=== PATIENT | female | born 1945 | race Caucasian/White ===

== ENCOUNTER 2018-02-16 12:44 | Emergency (ER) | payer MEDICARE, SELFPAY ==
[2018-02-16 12:50] VITALS: PULSE 84; RESP 20; O2SAT 97
--- NOTE | 2018-02-16 12:52 | DI.RAD.S_ITS ---
PROCEDURE: XR CHEST 1V INDICATIONS: chest pain TECHNIQUE: One view of the chest was acquired. COMPARISON: [facility], , CHEST 1 VIEW, 10/11/2017, 12:44. FINDINGS: Surgical changes and devices: None. Lungs and pleura: No pleural effusions or pneumothorax. Lungs are clear. Mediastinum: Mediastinal contours appear normal. Heart size is normal. Aortic calcifications. Bones and chest wall: No suspicious bony lesions. Overlying soft tissues appear unremarkable. IMPRESSION: No acute cardiopulmonary abnormality. Dictated by: Cipriano Pelayo M.D. on 02/16/2018 at 13:30 Approved by: Cipriano Pelayo M.D. on 02/16/2018 at 13:31
[2018-02-16 13:00] LABS: Add Manual Diff / Slide Review NO; Basophils Percent Auto 0.7 % (0-2); Eosinophils Percent Auto 2.5 % (2-4); Hematocrit 43.8 % (36-46); Lymphocytes Percent Auto 43.2 % (25-40); Mean Corpuscular HGB Conc 34.2 % (30-36); Mean Corpuscular Hemoglobin 29.5 PG (26-34); Mean Corpuscular Volume 86.3 fL (80-100); Monocytes Percent Auto 6.4 % (3-14); Neutrophils Absolute Auto 3300 /uL (3000-5900); Neutrophils Percent Auto 47.2 % (50-75); Platelet Count 232 X10^3/uL (150-400); Red Blood Cell Count 5.08 X10^6/uL (4.0-5.2); Red Cell Distribution Width 13.7 % (11.6-14.8)
[2018-02-16 13:09] LABS: Alanine Aminotransferase 35 IU/L (9-52); Albumin 4.4 g/dL (3.5-5.0); Albumin Globulin Ratio 1.4 (1.0-2.8); Alkaline Phosphatase 46 U/L (38-126); Aspartate Aminotransferase 36 IU/L (14-36); BUN Creatinine Ratio 33.3 (6-22); Bilirubin Total 0.8 mg/dL (0.2-1.3); Blood Urea Nitrogen 20 mg/dL (7-17); Calcium 9.8 mg/dL (8.4-10.2); Carbon Dioxide 28 mmol/L (22-32); Chloride 100 mmol/L (98-107); Creatine Kinase 79 U/L (30-135); Estimated Glomerular Filt Rate > 60.0 mL/min (>60); Globulin 3.1 g/dL (1.7-4.1); Glucose 151 mg/dL (80-110); HEMOLYSIS 58 (0-50); Lipase 163 U/L (23-300); Potassium 4.4 mmol/L (3.4-5.1); Sodium 140 mmol/L (137-145); Total Protein 7.5 g/dL (6.3-8.2)
[2018-02-16 13:15] VITALS: BP 122/64; PULSE 79; RESP 16; O2SAT 94
[2018-02-16 13:21] LABS: Troponin I < 0.012 ng/mL (0.01-0.034)
--- NOTE | 2018-02-16 14:07 | ED.CHESTPAIN ---
HPI - Chest Pain General Chief Complaint: Chest Pain Stated Complaint: Chest Pain Time Seen by Provider: 02/16/18 13:26 Source: patient and EMS Mode of arrival: EMS Limitations: no limitations History of Present Illness HPI narrative: Patient states that she noticed onset of left shoulder pain this morning. The pain radiated down into her left arm. She denies actual chest pain itself, and denies shortness of breath. She states she had a little bit of nausea. Patient called EMS, and the medics state that by the time they got there the pain had resolved. Patient states she had a full cardiac workup earlier this year, in August or September, and that she had a negative stress test at that time. MD complaint: other (Left shoulder pain) Onset (ago): minute(s) Duration: now resolved Onset: during rest Pain location: other (Left shoulder) Severity: mild Severity scale (1-10): 3 Quality: sharp Pain radiation: LUE Relieving factors: nothing Exacerbating factors: nothing Context: other (Negative for recent illness, recent surgery, recent immobilization, recent travel, recent trauma, new medications, or history of DVT/PE.) Associated symptoms: nausea and other (No respiratory symptoms.) Treatments prior to arrival chest pain: none Related Data Home Medications Medication Instructions Recorded Confirmed aspirin 81 mg PO HS #30 tab 03/09/16 01/05/18 cetirizine 10 mg capsule 10 mg PO DAILY cap 01/05/18 01/05/18 diltiazem 30 mg tablet 30 mg PO TID 01/05/18 01/05/18 Previous Rx's Medication Instructions Recorded diazepam [Valium] 10 mg PO HS #5 tab 10/06/17 simvastatin 10 mg tablet 10 mg PO QPM #90 tab 11/18/17 blood sugar diagnostic strips #100 each 01/05/18 metoprolol succinate ER 50 mg See Label Instructions .ROUTE 01/27/18 tablet,extended release 24 hr .COMPLEX #120 tab Allergies Allergy/AdvReac Type Severity Reaction Status Date / Time simvastatin AdvReac Intermediate Severe Verified 01/05/18 14:31 muscle weekness and pain Review of Systems Review of Systems All systems reviewed & are unremarkable except as noted in HPI and below Constitutional Denies chills, Denies fever(s), Denies lethargy and Denies weakness Eyes Denies change in vision, Denies eye discharge, Denies irritation and Denies loss of vision ENT Ears, Nose, Mouth, and Throat: Denies change in voice, Denies neck pain and Denies sore throat Cardiovascular Denies chest pain, Denies irregular heart rhythm, Denies lightheadedness, Denies palpitations, Denies dyspnea, Denies dyspnea on exertion and Denies orthopnea Respiratory Denies cough, Denies dyspnea, Denies dyspnea on exertion and Denies wheezing Gastrointestinal Gastrointestinal: Denies abdominal pain, Denies change in bowel habits, Denies diarrhea, Denies nausea and Denies vomiting Genitourinary Denies hematuria, Denies flank pain, Denies urinary incontinence and Denies urinary urgency Musculoskeletal Denies neck pain and Reports radiating pain into limb Comments: Left upper extremity pain. Integumentary/Breasts Denies pruritus, Denies erythema, Denies rash and Denies wounds Neurologic Denies confusion, Denies loss of vision and Denies weakness Psychiatric Denies anxiety, Denies confusion, Denies depression, Denies homicidal ideation and Denies suicidal ideation Endocrine Denies palpitations Hematologic/Lymphatic Denies easy bruising Allergic/Immunologic Denies wheezing PFSH Family History Father No problems noted. Mother No problems noted. Social History Smoking Status: Former smoker Tobacco: How many years used: 30 alcohol intake: never Exam Initial Vital Signs Initial Vital Signs: Vital Signs Pulse Rate 84 02/16/18 12:50 Respiratory Rate 20 02/16/18 12:50 Pulse Oximetry 97 02/16/18 12:50 Const General: cooperative and well developed Nutritional Appearance: well nourished Orientation: alert, awake, oriented x3 and not confused [facility] Head: normocephalic and atraumatic Ears: external ears normal and TM's normal bilaterally Nose: external nose normal and No nasal discharge Face and sinus: sinuses nontender, face symmetric, no sinus tenderness and No dry mucous membranes Mouth: oral mucosae normal and moist mucous membranes Teeth and gingiva: dentition normal Throat: tonsils normal and uvula midline Eyes General: appearance normal, both eyes and all related structures Eyelids: eyelids normal Conjunctivae: conjunctivae normal Sclera: sclerae normal Pupils: PERRL EOM: EOM intact bilaterally Neck Neck: normal visual inspection, trachea midline, No lymphadenopathy, No midline deformity and No JVD Lymphatic: No lymphedema Chest Chest: normal inspection of the chest Resp Effort & Inspection: normal respiratory effort, able to speak in complete sentences, no respiratory distress and no use of accessory muscles Auscultation: clear to auscultation bilaterally, no rales, no rhonchi and no wheezes Cardio Rate: regular rate Rhythm: regular rhythm Heart Sounds: no click, no gallops, no murmurs and no rubs Pulses: normal peripheral pulses GI Inspection: non-distended Palpation: soft, no hepatosplenomegaly, No guarding, No pulsatile mass and No tender Auscultation: normal bowel sounds Back/Spine/Pelvis Back: No CVA tenderness Cervical Spine: cervical ROM normal and No pain with cervical ROM Thoracic/Lumbar Spine: thoracic and lumbar spine normal to inspection Skin General: no rashes or lesions noted, No jaundice and No petechiae Neuro General: alert, oriented x3, gait normal and no focal motor deficits Speech: speech normal Extrem General: full ROM, no clubbing, cyanosis or edema, no pedal edema and no calf tenderness Psych Appearance: well kempt Mental Status: mental status grossly normal Attitude: cooperative Thought Content: normal and suicidality Judgment: judgment good Course Hospital Course: Patient remained stable in the emergency department. Additional Information: Twelve lead EKG was performed as follows: Date and time February 16, 2018 at 12:47 p.m. Regular ventricular rhythm with a rate of 84 beats per minute [place] interval 166 milliseconds QRS duration 93 milliseconds QTC interval 402 milliseconds [place] normal No ST T wave abnormality Interpretation: Normal sinus rhythm, normal EKG PROCEDURE: XR CHEST 1V INDICATIONS: chest pain TECHNIQUE: One view of the chest was acquired. COMPARISON: [facility], CHEST 1 VIEW, 10/11/2017, 12:44. FINDINGS: Surgical changes and devices: None. Lungs and pleura: No pleural effusions or pneumothorax. Lungs are clear. Mediastinum: Mediastinal contours appear normal. Heart size is normal. Aortic calcifications. Bones and chest wall: No suspicious bony lesions. Overlying soft tissues appear unremarkable. IMPRESSION: No acute cardiopulmonary abnormality. Dictated by: Cipriano Pelayo M.D. on 02/16/2018 at 13:30 Approved by: Cipriano Pelayo M.D. on 02/16/2018 at 13:31 Orders Ordered: ED Orders 02/16/18 12:40 Complete Blood Count AUTO DIFF Stat Comprehensive Metabolic Panel Stat Lipase Stat Troponin & CK Cardiac Panel Stat 02/16/18 12:52 XR chest 1V Stat EKG-12 Lead Stat Vital Signs - 8 hr 02/16/18 12:50 02/16/18 13:15 Pulse Rate 84 79 Respiratory Rate 20 16 Blood Pressure [Right Arm] 122/64 H Pulse Oximetry 97 94 MDM - Chest Pain Differential Diagnosis Likely stable angina and chest pain Medical Records Data Attestation: I reviewed the patient's medical records. Lab Data Attestation: I reviewed the patient's lab results. Result diagrams: 02/16/18 12:40 02/16/18 12:40 Lab Results 02/16/18 02/16/18 Range/Units 12:40 12:40 WBC 7.0 (4.5-11.0) X10^3/uL RBC 5.08 (4.0-5.2) X10^6/uL Hgb 15.0 (12.0-16.0) g/dL Hct 43.8 (36-46) % MCV 86.3 (80-100) fL MCH 29.5 (26-34) PG MCHC 34.2 (30-36) % RDW 13.7 (11.6-14.8) % Plt Count 232 (150-400) X10^3/uL Neut % (Auto) 47.2 L (50-75) % Lymph % (Auto) 43.2 H (25-40) % [place] % (Auto) 6.4 (3-14) % Eos % (Auto) 2.5 (2-4) % Baso % (Auto) 0.7 (0-2) % Neut # (Auto) 3300 (7998-7804) /uL Sodium 140 (137-145) mmol/L Potassium 4.4 (3.4-5.1) mmol/L Chloride 100 (98-107) mmol/L Carbon Dioxide 28 (22-32) mmol/L BUN 20 H (7-17) mg/dL Creatinine 0.60 (0.52-1.04) mg/dL Estimated GFR > 60.0 (>60) mL/min BUN/Creatinine Ratio 33.3 H (6-22) Glucose 151 H (80-110) mg/dL Calcium 9.8 (8.4-10.2) mg/dL Total Bilirubin 0.8 (0.2-1.3) mg/dL AST 36 (14-36) IU/L ALT 35 (9-52) IU/L Alkaline Phosphatase 46 (38-126) U/L Total Creatine Kinase 79 (30-135) U/L Troponin I < 0.012 (0.01-0.034) ng/mL Total Protein 7.5 (6.3-8.2) g/dL Albumin 4.4 (3.5-5.0) g/dL Globulin 3.1 (1.7-4.1) g/dL Albumin/Globulin Ratio 1.4 (1.0-2.8) Lipase 163 (23-300) U/L MDM Narrative Medical decision making narrative: Patient was stable and asymptomatic upon arrival in the emergency department. Additionally, she had had a negative stress test in recent months. Her EKG was unremarkable for serious pathology. Laboratory studies were also unremarkable. I did feel this patient is stable for discharge home, as I have not identified any emergent condition. Discharge Plan Departure Patient Disposition: Home, Self-Care Clinical Impression: Acute shoulder pain Discharge Date/Time: 02/16/18 14:24 Interventions: ED Discharge Assessment Last Done: 02/16/18 14:24 Instructions: DI for Shoulder Pain Activity Restrictions/Additional Instructions: Your labs look good, and your EKG does not show any evidence of an emergent cause of your pain. Additionally, the negative stress test several months ago is reassuring in terms of possibility of a heart attack or impending heart attack. If you have worsening chest pain, shortness of breath, or if you have fainting episodes associated with further pain of this nature, please return to the emergency department. Otherwise you may follow up with your primary care physician for further concerns. Prescriptions: No Action diltiazem HCl 30 mg tablet 30 mg PO TID RF: 0 cetirizine [Zyrtec] 10 mg capsule 10 mg PO DAILY RF: 0 blood sugar diagnostic [FreeStyle Test] strip .ROUTE .MEDSUPPLY Qty: 100 RF: 0 aspirin 81 MG tablet,delayed release (DR/EC) 81 mg PO HS Qty: 30 RF: 0 diazepam [Valium] 10 MG tablet 10 mg PO HS Qty: 5 RF: 0 simvastatin 10 mg tablet 10 mg PO QPM Qty: 90 RF: 0 metoprolol succinate 50 mg tablet extended release 24 hr See Label Instructions .ROUTE .COMPLEX Qty: 120 RF: 3 Referrals: Yenifer Davis, [Primary Care Provider] - (You may follow up, as needed, with your primary provider.)
[2018-02-16 14:24] VITALS: BP 131/70; PULSE 79; RESP 15; O2SAT 99
== END 2018-02-16 14:24 | disposition home or self-care (01) ==
PROVIDERS: Emergency Provider Emergency Medicine; Family Provider Family Medicine; PCP Family Medicine
DX: M25.519 Pain in unspecified shoulder (principal)
CPT/HCPCS: 71045; 80053; 82550; 82553; 83690; 84484; 85025; 93005; 93010; 99282; 99284

== ENCOUNTER → 2018-06-09 09:49 | Outpatient (CLI) | payer MEDICARE, SELFPAY ==
[2018-06-09 11:07] LABS: Alanine Aminotransferase 41 IU/L (9-52); Albumin 4.3 g/dL (3.5-5.0); Albumin Globulin Ratio 1.3 (1.0-2.8); Alkaline Phosphatase 57 U/L (38-126); Aspartate Aminotransferase 32 IU/L (14-36); BUN Creatinine Ratio 31.7 (6-22); Bilirubin Total 0.7 mg/dL (0.2-1.3); Blood Urea Nitrogen 19 mg/dL (7-17); Calcium 9.5 mg/dL (8.4-10.2); Carbon Dioxide 26 mmol/L (22-32); Chloride 103 mmol/L (98-107); Estimated Glomerular Filt Rate > 60.0 mL/min (>60); Globulin 3.2 g/dL (1.7-4.1); Glucose 145 mg/dL (80-110); HEMOLYSIS 18 (0-50); Potassium 4.3 mmol/L (3.4-5.1); Sodium 141 mmol/L (137-145); Total Protein 7.5 g/dL (6.3-8.2)
[2018-06-09 12:19] LABS: Hemoglobin A1C% w Est Avg Glu 6.6 % (4.0-6.0)
== END ==
PROVIDERS: Family Provider Internal Medicine Cardiovascular Disease; PCP Family Medicine; Visit Provider Family Medicine
DX: R73.9 Hyperglycemia, unspecified (principal)
CPT/HCPCS: 36415; 80053; 83036

== ENCOUNTER 2018-11-13 17:03 | Emergency (ER) | payer MEDICARE, SELFPAY ==
[2018-11-13 17:11] VITALS: BP 161/81; PULSE 101; RESP 20; TEMP 37.3; O2SAT 95
--- NOTE | 2018-11-13 17:16 | DI.RAD.S_ITS ---
PROCEDURE: XR CHEST 2V INDICATIONS: palpatations, fatigue TECHNIQUE: 2 views of the chest were acquired. COMPARISON: None. FINDINGS: Surgical changes and devices: None. Lungs and pleura: Minimal streaky left basilar opacities. No focal consolidations. Lungs are otherwise clear. No pleural effusions or pneumothorax. Mediastinum: Mediastinal contours are normal. Heart size is normal. Bones and chest wall: No suspicious bony abnormalities. Soft tissues appear unremarkable. IMPRESSION: Minimal streaky left basilar opacities favored to represent atelectasis. No focal consolidation. Dictated by: Adi Zhang M.D. on 11/13/2018 at 20:57 Approved by: Adi Zhang M.D. on 11/13/2018 at 20:58
[2018-11-13 18:11] LABS: Add Manual Diff / Slide Review NO; Basophils Absolute Auto 100 /uL (0-100); Basophils Percent Auto 0.7 % (0-2); Eosinophils Absolute Auto 100 /uL (0-450); Eosinophils Percent Auto 1.2 % (2-4); Hematocrit 43.6 % (36-46); Hemoglobin 14.3 g/dL (12.0-16.0); Lymphocytes Absolute Auto 2200 /uL (1100-4500); Lymphocytes Percent Auto 29.5 % (25-40); Mean Corpuscular HGB Conc 32.8 % (30-36); Mean Corpuscular Hemoglobin 28.6 PG (26-34); Mean Corpuscular Volume 87.2 fL (80-100); Monocytes Absolute Auto 400 /uL (0-900); Neutrophils Absolute Auto 4700 /uL (1500-7000); Neutrophils Percent Auto 63.6 % (50-75); Platelet Count 249 X10^3/uL (150-400); Red Cell Distribution Width 13.9 % (11.6-14.8); White Blood Cell Count 7.4 X10^3/uL (4.5-11.0)
[2018-11-13 18:13] LABS: Alanine Aminotransferase 45 IU/L (9-52); Albumin 4.5 g/dL (3.5-5.0); Albumin Globulin Ratio 1.3 (1.0-2.8); Alkaline Phosphatase 66 U/L (38-126); Aspartate Aminotransferase 33 IU/L (14-36); Bilirubin Total 0.5 mg/dL (0.2-1.3); Blood Urea Nitrogen 12 mg/dL (7-17); Calcium 9.6 mg/dL (8.4-10.2); Carbon Dioxide 26 mmol/L (22-32); Chloride 102 mmol/L (98-107); Creatine Kinase 110 U/L (30-135); Estimated Glomerular Filt Rate > 60.0 mL/min (>60); Globulin 3.4 g/dL (1.7-4.1); Glucose 147 mg/dL (80-110); HEMOLYSIS 16 (0-50); Potassium 3.8 mmol/L (3.4-5.1); Sodium 139 mmol/L (137-145); Total Protein 7.9 g/dL (6.3-8.2)
[2018-11-13 18:24] LABS: Troponin I < 0.012 ng/mL (0.01-0.034)
[2018-11-13 18:28] LABS: CKMB % Relative Index 1.3 % (1.5-5.0); Creatine Kinase MB 1.42 ng/mL (<2.37)
--- NOTE | 2018-11-13 18:40 | DI.RAD.S_ITS ---
PROCEDURE: XR SOFT TISSUE NECK INDICATIONS: fullness in throat TECHNIQUE: 2 views of the neck were acquired. COMPARISON: None. FINDINGS: Airway: The airway appears patent. Soft tissues: Prevertebral soft tissues are normal in thickness. The epiglottis and aryepiglottic folds appear normal. No soft tissue gas. Bones: No suspicious bony lesions. Multilevel cervical spondylosis most severe at C5-6. Visualized cervical spine is normally aligned. IMPRESSION: Cervical spine without acute abnormalities. Unremarkable radiographic appearance of the soft tissue structures of the neck. Dictated by: Adi Zhang M.D. on 11/13/2018 at 21:05 Approved by: Adi Zhang M.D. on 11/13/2018 at 21:06
--- NOTE | 2018-11-13 18:40 | DI.RAD.S_ITS ---
PROCEDURE: XR ABDOMEN MIN 2V INDICATIONS: fullness in belly TECHNIQUE: 2 views of the abdomen were acquired. COMPARISON: None. FINDINGS: Surgical changes and devices: None. Bowel: No pneumoperitoneum. The bowel gas pattern is normal. Soft tissues: No masses; visualized solid organ contours appear normal in size. No suspicious abdominal calcifications. Bones: No suspicious bony abnormalities. Levocurvature of the lumbar spine. IMPRESSION: Abdomen without acute radiographic abnormalities. Dictated by: Adi Zhang M.D. on 11/13/2018 at 21:04 Approved by: Adi Zhang M.D. on 11/13/2018 at 21:04
[2018-11-13] MEDS: DEXAMETHASONE 10 MG/ML VIAL IV (19:00)
--- NOTE | 2018-11-13 19:24 | ED.ARRPALP ---
HPI - Arrhythmia/Palpitations General Chief Complaint: Arrhythmia/Palpitations Stated Complaint: Confused--throat full of flymm, heart flutter Time Seen by Provider: 11/13/18 18:00 Source: patient Mode of arrival: ambulatory Limitations: no limitations History of Present Illness HPI narrative: 73-year-old female nonsmoker with history cardiac arrhythmia as presents with a chief complaint of palpitations over the past day or 2 and a significant amount of phlegm in her throat. She has had a runny nose and some nasal congestion but denies sore throat or cough. She states that she feels excessive phlegm in her throat but denies difficulty or pain with swallowing. She denies any injury. She additionally states she has had palpitations but they are currently not happening. She denies significant alcohol, caffeine or nicotine. MD complaint: palpitations Onset (ago): hour(s) Duration: intermittent Context: occurred during rest Associated symptoms: other Related Data Home Medications Medication Instructions Recorded Confirmed aspirin 81 mg PO HS #30 tab 03/09/16 11/04/18 cetirizine 10 mg capsule 10 mg PO DAILY cap 01/05/18 11/04/18 cholecalciferol (vitamin D3) 5,000 5,000 unit PO DAILY 05/06/18 11/04/18 unit capsule diltiazem 30 mg tablet 30 mg PO BID tab 05/06/18 11/04/18 melatonin 10 mg capsule 10 mg PO BEDTIME PRN 05/06/18 11/04/18 Previous Rx's Medication Instructions Recorded blood sugar diagnostic strips #100 each 01/05/18 diazepam 10 mg tablet 10 mg PO HS #5 tab 06/21/18 metoprolol succinate ER 50 mg See Rx Instructions .ROUTE 06/29/18 tablet,extended release 24 hr .COMPLEX #120 tab Allergies Allergy/AdvReac Type Severity Reaction Status Date / Time fluticasone [From Flonase] Allergy Severe lip/mouth Verified 11/04/18 18:30 swelling simvastatin AdvReac Intermediate Severe Verified 11/04/18 18:29 muscle weekness and pain Review of Systems Constitutional Denies chills, Denies fever(s), Denies lethargy and Denies weakness Eyes Denies change in vision, Denies eye discharge, Denies irritation and Denies loss of vision ENT Ears, Nose, Mouth, and Throat: Denies change in voice, Denies neck pain and Denies sore throat Comments: Throat fullness Cardiovascular Denies chest pain, Denies irregular heart rhythm, Denies lightheadedness, Denies palpitations, Denies dyspnea, Denies dyspnea on exertion and Denies orthopnea Respiratory Denies cough, Denies dyspnea, Denies dyspnea on exertion and Denies wheezing Gastrointestinal Gastrointestinal: Denies abdominal pain, Denies change in bowel habits, Denies diarrhea, Denies nausea and Denies vomiting Genitourinary Denies hematuria, Denies flank pain, Denies urinary incontinence and Denies urinary urgency Musculoskeletal Denies neck pain Integumentary/Breasts Denies pruritus, Denies erythema, Denies rash and Denies wounds Neurologic Denies confusion, Denies loss of vision and Denies weakness Psychiatric Denies anxiety, Denies confusion, Denies depression, Denies homicidal ideation and Denies suicidal ideation Endocrine Denies palpitations Hematologic/Lymphatic Denies easy bruising Allergic/Immunologic Denies wheezing PFSH Medical History Allergic rhinitis (Chronic Unknown) Diabetes (Chronic Unknown) Hyperlipemia (Chronic Unknown) Hypertension (Chronic Unknown) Left-sided tinnitus (Chronic Unknown) SVT (supraventricular tachycardia) (Chronic 2014) Surgical History History of carpal tunnel release (Resolved 05/2013) Hx of hysterectomy (Resolved Unknown) Hx of tonsillectomy (Resolved Unknown) Family History Father No problems noted. Mother No problems noted. Social History Smoking Status: Former smoker Tobacco: How many years used: 30 alcohol intake: never Family History Father No problems noted. Mother No problems noted. Social History Smoking Status: Former smoker Tobacco: How many years used: 30 alcohol intake: never Exam Narrative Exam Narrative: GENERAL: 73-year-old female is visibly anxious, appears stated age HEAD: Atraumatic. Normocephalic. No temporal or scalp tenderness. EYES: Pupils equal round and reactive. Extraocular motions intact. No scleral icterus. No injection or drainage. ENT: Nose without bleeding, purulent drainage or septal hematoma. Throat without erythema, tonsillar hypertrophy or exudate. Uvula midline. Airway patent. NECK: Trachea midline. No JVD or lymphadenopathy. Supple, nontender, no meningeal signs. CARDIOVASCULAR: Regular rate and rhythm without murmurs, gallops, or rubs. RESPIRATORY: Clear to auscultation. Breath sounds equal bilaterally. No wheezes, rales, or rhonchi. GASTROINTESTINAL: Abdomen soft, non-tender, nondistended. No hepato-splenomegaly, or palpable masses. No guarding. EXTREMITIES: No clubbing, cyanosis, or edema. No joint tenderness, effusion, or edema noted. BACK: Nontender without deformity or crepitance. No flank tenderness. NEURO: AOx3. SKIN: No rash or erythema. Initial Vital Signs Initial Vital Signs: Vital Signs Temperature 99.1 F 11/13/18 17:11 Pulse Rate 101 H 11/13/18 17:11 Respiratory Rate 20 11/13/18 17:11 Blood Pressure 161/81 H 11/13/18 17:11 Pulse Oximetry 95 11/13/18 17:11 Course Orders Ordered: Discontinued Medications Dexamethasone (Decadron) 10 mg IV NOW ONE Stop: 11/13/18 18:42 Last Admin: 11/13/18 19:00 Dose: 10 mg Vital Signs - 8 hr 11/13/18 17:11 Temperature 99.1 F Pulse Rate 101 H Respiratory Rate 20 Blood Pressure 161/81 H Pulse Oximetry 95 MDM - Arrhythmia/Palpitations Lab Data Result diagrams: 11/13/18 17:50 11/13/18 17:50 Lab Results 11/13/18 11/13/18 Range/Units 17:50 17:50 WBC 7.4 (4.5-11.0) X10^3/uL RBC 5.00 (4.0-5.2) X10^6/uL Hgb 14.3 (12.0-16.0) g/dL Hct 43.6 (36-46) % MCV 87.2 (80-100) fL MCH 28.6 (26-34) PG MCHC 32.8 (30-36) % RDW 13.9 (11.6-14.8) % Plt Count 249 (150-400) X10^3/uL Neut % (Auto) 63.6 (50-75) % Lymph % (Auto) 29.5 (25-40) % [place] % (Auto) 5.0 (3-14) % Eos % (Auto) 1.2 L (2-4) % Baso % (Auto) 0.7 (0-2) % Neut # (Auto) 4700 (4053-3857) /uL Lymph # (Auto) 2200 (8120-1501) /uL [place] # (Auto) 400 (0-900) /uL Eos # (Auto) 100 (0-450) /uL Baso # (Auto) 100 (0-100) /uL Sodium 139 (137-145) mmol/L Potassium 3.8 (3.4-5.1) mmol/L Chloride 102 (98-107) mmol/L Carbon Dioxide 26 (22-32) mmol/L BUN 12 (7-17) mg/dL Creatinine 0.60 (0.52-1.04) mg/dL Estimated GFR > 60.0 (>60) mL/min BUN/Creatinine Ratio 20.0 (6-22) Glucose 147 H (80-110) mg/dL Calcium 9.6 (8.4-10.2) mg/dL Total Bilirubin 0.5 (0.2-1.3) mg/dL AST 33 (14-36) IU/L ALT 45 (9-52) IU/L Alkaline Phosphatase 66 (38-126) U/L Total Creatine Kinase 110 (30-135) U/L CK-MB (CK-2) 1.42 (<2.37) ng/mL CK-MB (CK-2) Rel Index 1.3 L (1.5-5.0) % Troponin I < 0.012 (0.01-0.034) ng/mL Total Protein 7.9 (6.3-8.2) g/dL Albumin 4.5 (3.5-5.0) g/dL Globulin 3.4 (1.7-4.1) g/dL Albumin/Globulin Ratio 1.3 (1.0-2.8) Imaging Data Soft Tissue Neck: Radiologist's impression: [address] [address] XRay Report Signed Patient: Rica Fabian [facility]#: [id number] : 5Acct:[id number] Age/Sex: 73 / FDate of Service: 11/13/18 Loc: ED Accession Number: [id number] Procedure: XR soft tissue neck Ordering Provider: Jose Harper D.O. PROCEDURE: XR SOFT TISSUE NECK INDICATIONS: fullness in throat TECHNIQUE: 2 views of the neck were acquired. COMPARISON: None. FINDINGS: Airway: The airway appears patent. Soft tissues: Prevertebral soft tissues are normal in thickness. The epiglottis and aryepiglottic folds appear normal. No soft tissue gas. Bones: No suspicious bony lesions. Multilevel cervical spondylosis most severe at C5-6. Visualized cervical spine is normally aligned. IMPRESSION: Cervical spine without acute abnormalities. Unremarkable radiographic appearance of the soft tissue structures of the neck. Dictated by: Adi Zhang M.D. on 11/13/2018 at 21:05 Approved by: Adi Zhang M.D. on 11/13/2018 at 21:06 [facility] Narrative Medical decision making narrative: Multiple etiologies for patient's symptoms considered including: [Esophageal foreign body versus soft tissue swelling versus] Patient's symptoms improved or duration of stay with above-stated therapies. Findings and discharge diagnosis discussed with patient/family followed by verbalization of understanding Return precautions discussed with patient/family whom verbalize understanding. Discharge Plan Departure Patient Disposition: Home Clinical Impression: Palpitations Discharge Date/Time: 11/13/18 21:57 Interventions: ED Discharge Assessment Last Done: 11/13/18 21:51 Instructions: DI for Palpitations Activity Restrictions/Additional Instructions: *You have been diagnosed with [ palpitations, post nasal drip ] *What to do: *Continue to take medications as directed *Follow up with your primary care provider in 2-3 days, call for an appointment. Let them know you were seen in the Emergency Department and that we ask that you be seen in follow up *Return to ER if you should have any new, worsening or concerning symptoms Prescriptions: No Action cetirizine [Zyrtec] 10 mg capsule 10 mg PO DAILY RF: 0 blood sugar diagnostic [FreeStyle Test] strip .ROUTE .MEDSUPPLY Qty: 100 RF: 0 diltiazem HCl 30 mg tablet 30 mg PO BID RF: 0 cholecalciferol (vitamin D3) 5,000 unit capsule 5,000 unit PO DAILY RF: 0 melatonin 10 mg capsule 10 mg PO BEDTIME PRNRF: 0 aspirin 81 MG tablet,delayed release (DR/EC) 81 mg PO HS Qty: 30 RF: 0 diazepam [Valium] 10 mg tablet 10 mg PO HS Qty: 5 RF: 0 metoprolol succinate 50 mg tablet extended release 24 hr See Patient Comments .ROUTE .COMPLEX Qty: 120 RF: 0 Referrals: Yenifer Davis DO [Primary Care Provider] -
[2018-11-13 19:30] VITALS: BP 150/65; PULSE 81; RESP 20; O2SAT 96
--- NOTE | 2018-11-13 19:37 | PC.NURSE ---
Pt reports feeling off States feels like has lump in throat. States feeling heart racing but hr at this time is 81. Reports able to swallow and is able to manage secretions. Lungs are clear and HRR
--- NOTE | 2018-11-13 19:47 | PC.NURSE ---
Pt reporting my lips feel swollen and tingly after decadron admin. No resp distress. No swelling to lips/tongue noted. Dr Harper at bedside, call light in reach.
[2018-11-13 21:51] VITALS: BP 152/72; PULSE 82; RESP 19; TEMP 36.8; O2SAT 99
--- NOTE | 2018-11-14 08:13 | ED_ITS ---
HPI - Arrhythmia/Palpitations General Chief Complaint: Arrhythmia/Palpitations Stated Complaint: Confused--throat full of flymm, heart flutter Time Seen by Provider: 11/13/18 18:00 Source: patient Mode of arrival: ambulatory Limitations: no limitations History of Present Illness HPI narrative: 73-year-old female nonsmoker with history cardiac arrhythmia as presents with a chief complaint of palpitations over the past day or 2 and a significant amount of phlegm in her throat. She has had a runny nose and some nasal congestion but denies sore throat or cough. She states that she feels excessive phlegm in her throat but denies difficulty or pain with swallowing. She denies any injury. She additionally states she has had palpitations but they are currently not happening. She denies significant alcohol, caffeine or nicotine. MD complaint: palpitations Onset (ago): hour(s) Duration: intermittent Context: occurred during rest Associated symptoms: other Related Data Home Medications Medication Instructions Recorded Confirmed aspirin 81 mg PO HS #30 tab 03/09/16 11/04/18 cetirizine 10 mg capsule 10 mg PO DAILY cap 01/05/18 11/04/18 cholecalciferol (vitamin D3) 5,000 5,000 unit PO DAILY 05/06/18 11/04/18 unit capsule diltiazem 30 mg tablet 30 mg PO BID tab 05/06/18 11/04/18 melatonin 10 mg capsule 10 mg PO BEDTIME PRN 05/06/18 11/04/18 Previous Rx's Medication Instructions Recorded blood sugar diagnostic strips #100 each 01/05/18 diazepam 10 mg tablet 10 mg PO HS #5 tab 06/21/18 metoprolol succinate ER 50 mg See Rx Instructions .ROUTE 06/29/18 tablet,extended release 24 hr .COMPLEX #120 tab Allergies Allergy/AdvReac Type Severity Reaction Status Date / Time fluticasone [From Flonase] Allergy Severe lip/mouth Verified 11/04/18 18:30 swelling simvastatin AdvReac Intermediate Severe Verified 11/04/18 18:29 muscle weekness and pain Review of Systems Constitutional Denies chills, Denies fever(s), Denies lethargy and Denies weakness Eyes Denies change in vision, Denies eye discharge, Denies irritation and Denies loss of vision ENT Ears, Nose, Mouth, and Throat: Denies change in voice, Denies neck pain and Denies sore throat Comments: Throat fullness Cardiovascular Denies chest pain, Denies irregular heart rhythm, Denies lightheadedness, Denies palpitations, Denies dyspnea, Denies dyspnea on exertion and Denies orthopnea Respiratory Denies cough, Denies dyspnea, Denies dyspnea on exertion and Denies wheezing Gastrointestinal Gastrointestinal: Denies abdominal pain, Denies change in bowel habits, Denies diarrhea, Denies nausea and Denies vomiting Genitourinary Denies hematuria, Denies flank pain, Denies urinary incontinence and Denies urinary urgency Musculoskeletal Denies neck pain Integumentary/Breasts Denies pruritus, Denies erythema, Denies rash and Denies wounds Neurologic Denies confusion, Denies loss of vision and Denies weakness Psychiatric Denies anxiety, Denies confusion, Denies depression, Denies homicidal ideation and Denies suicidal ideation Endocrine Denies palpitations Hematologic/Lymphatic Denies easy bruising Allergic/Immunologic Denies wheezing PFSH Medical History Allergic rhinitis (Chronic Unknown) Diabetes (Chronic Unknown) Hyperlipemia (Chronic Unknown) Hypertension (Chronic Unknown) Left-sided tinnitus (Chronic Unknown) SVT (supraventricular tachycardia) (Chronic 2014) Surgical History History of carpal tunnel release (Resolved 05/2013) Hx of hysterectomy (Resolved Unknown) Hx of tonsillectomy (Resolved Unknown) Family History Father No problems noted. Mother No problems noted. Social History Smoking Status: Former smoker Tobacco: How many years used: 30 alcohol intake: never Family History Father No problems noted. Mother No problems noted. Social History Smoking Status: Former smoker Tobacco: How many years used: 30 alcohol intake: never Exam Narrative Exam Narrative: GENERAL: 73-year-old female is visibly anxious, appears stated age HEAD: Atraumatic. Normocephalic. No temporal or scalp tenderness. EYES: Pupils equal round and reactive. Extraocular motions intact. No scleral icterus. No injection or drainage. ENT: Nose without bleeding, purulent drainage or septal hematoma. Throat without erythema, tonsillar hypertrophy or exudate. Uvula midline. Airway patent. NECK: Trachea midline. No JVD or lymphadenopathy. Supple, nontender, no meningeal signs. CARDIOVASCULAR: Regular rate and rhythm without murmurs, gallops, or rubs. RESPIRATORY: Clear to auscultation. Breath sounds equal bilaterally. No wheezes, rales, or rhonchi. GASTROINTESTINAL: Abdomen soft, non-tender, nondistended. No hepato- splenomegaly, or palpable masses. No guarding. EXTREMITIES: No clubbing, cyanosis, or edema. No joint tenderness, effusion, or edema noted. BACK: Nontender without deformity or crepitance. No flank tenderness. NEURO: AOx3. SKIN: No rash or erythema. Initial Vital Signs Initial Vital Signs: Vital Signs Temperature 99.1 F 11/13/18 17:11 Pulse Rate 101 H 11/13/18 17:11 Respiratory Rate 20 11/13/18 17:11 Blood Pressure 161/81 H 11/13/18 17:11 Pulse Oximetry 95 11/13/18 17:11 Course Orders Ordered: Discontinued Medications Dexamethasone (Decadron) 10 mg IV NOW ONE Stop: 11/13/18 18:42 Last Admin: 11/13/18 19:00 Dose: 10 mg Vital Signs - 8 hr 11/13/18 17:11 Temperature 99.1 F Pulse Rate 101 H Respiratory Rate 20 Blood Pressure 161/81 H Pulse Oximetry 95 MDM - Arrhythmia/Palpitations Lab Data Result diagrams: 11/13/18 17:50 11/13/18 17:50 Lab Results 11/13/18 11/13/18 Range/Units 17:50 17:50 WBC 7.4 (4.5-11.0) X10^3/uL RBC 5.00 (4.0-5.2) X10^6/uL Hgb 14.3 (12.0-16.0) g/dL Hct 43.6 (36-46) % MCV 87.2 (80-100) fL MCH 28.6 (26-34) PG MCHC 32.8 (30-36) % RDW 13.9 (11.6-14.8) % Plt Count 249 (150-400) X10^3/uL Neut % (Auto) 63.6 (50-75) % Lymph % (Auto) 29.5 (25-40) % [place] % (Auto) 5.0 (3-14) % Eos % (Auto) 1.2 L (2-4) % Baso % (Auto) 0.7 (0-2) % Neut # (Auto) 4700 (7355-5269) /uL Lymph # (Auto) 2200 (5732-8807) /uL [place] # (Auto) 400 (0-900) /uL Eos # (Auto) 100 (0-450) /uL Baso # (Auto) 100 (0-100) /uL Sodium 139 (137-145) mmol/L Potassium 3.8 (3.4-5.1) mmol/L Chloride 102 (98-107) mmol/L Carbon Dioxide 26 (22-32) mmol/L BUN 12 (7-17) mg/dL Creatinine 0.60 (0.52-1.04) mg/dL Estimated GFR > 60.0 (>60) mL/min BUN/Creatinine Ratio 20.0 (6-22) Glucose 147 H (80-110) mg/dL Calcium 9.6 (8.4-10.2) mg/dL Total Bilirubin 0.5 (0.2-1.3) mg/dL AST 33 (14-36) IU/L ALT 45 (9-52) IU/L Alkaline Phosphatase 66 (38-126) U/L Total Creatine Kinase 110 (30-135) U/L CK-MB (CK-2) 1.42 (<2.37) ng/mL CK-MB (CK-2) Rel Index 1.3 L (1.5-5.0) % Troponin I < 0.012 (0.01-0.034) ng/mL Total Protein 7.9 (6.3-8.2) g/dL Albumin 4.5 (3.5-5.0) g/dL Globulin 3.4 (1.7-4.1) g/dL Albumin/Globulin Ratio 1.3 (1.0-2.8) Imaging Data Soft Tissue Neck: Radiologist's impression: [address] [address] XRay Report Signed Patient: Rica Fabian [facility]#: [id number] : 5Acct:[id number] Age/Sex: 73 / FDate of Service: 11/13/18 Loc: ED Accession Number: [id number] Procedure: XR soft tissue neck Ordering Provider: Jose Harper D.O. PROCEDURE: XR SOFT TISSUE NECK INDICATIONS: fullness in throat TECHNIQUE: 2 views of the neck were acquired. COMPARISON: None. FINDINGS: Airway: The airway appears patent. Soft tissues: Prevertebral soft tissues are normal in thickness. The epiglottis and aryepiglottic folds appear normal. No soft tissue gas. Bones: No suspicious bony lesions. Multilevel cervical spondylosis most severe at C5-6. Visualized cervical spine is normally aligned. IMPRESSION: Cervical spine without acute abnormalities. Unremarkable radiographic appearance of the soft tissue structures of the neck. Dictated by: Adi Zhang M.D. on 11/13/2018 at 21:05 Approved by: Adi Zhang M.D. on 11/13/2018 at 21:06 [facility] Narrative Medical decision making narrative: Multiple etiologies for patient's symptoms considered including: [Esophageal foreign body versus soft tissue swelling versus] Patient's symptoms improved or duration of stay with above-stated therapies. Findings and discharge diagnosis discussed with patient/family followed by verbalization of understanding Return precautions discussed with patient/family whom verbalize understanding. Discharge Plan Departure Patient Disposition: Home Clinical Impression: Palpitations Discharge Date/Time: 11/13/18 21:57 Interventions: ED Discharge Assessment Last Done: 11/13/18 21:51 Instructions: DI for Palpitations Activity Restrictions/Additional Instructions: *You have been diagnosed with [ palpitations, post nasal drip ] *What to do: *Continue to take medications as directed *Follow up with your primary care provider in 2-3 days, call for an ap pointment. Let them know you were seen in the Emergency Department and that we ask that you be seen in follow up *Return to ER if you should have any new, worsening or concerning symptoms Prescriptions: No Action cetirizine [Zyrtec] 10 mg capsule 10 mg PO DAILY RF: 0 blood sugar diagnostic [FreeStyle Test] strip .ROUTE .MEDSUPPLY Qty: 100 RF: 0 diltiazem HCl 30 mg tablet 30 mg PO BID RF: 0 cholecalciferol (vitamin D3) 5,000 unit capsule 5,000 unit PO DAILY RF: 0 melatonin 10 mg capsule 10 mg PO BEDTIME PRNRF: 0 aspirin 81 MG tablet,delayed release (DR/EC) 81 mg PO HS Qty: 30 RF: 0 diazepam [Valium] 10 mg tablet 10 mg PO HS Qty: 5 RF: 0 metoprolol succinate 50 mg tablet extended release 24 hr See Patient Comments .ROUTE .COMPLEX Qty: 120 RF: 0 Referrals: Yenifer Davis DO [Primary Care Provider] -
== END 2018-11-13 21:57 | disposition home or self-care (01) ==
PROVIDERS: Emergency Medicine; Emergency Provider Emergency Medicine; Family Provider Internal Medicine Cardiovascular Disease; PCP Family Medicine
DX: R00.2 Palpitations (principal); R09.81 Nasal congestion; R09.89 Other specified symptoms and signs involving the circulatory and respiratory systems
CPT/HCPCS: 36591; 70360; 71046; 74019; 80053; 82550; 82553; 84484; 85025; 93005; 93041; 96374; 99283; 99284; J1100

== ENCOUNTER → 2018-12-19 10:08 | Outpatient (CLI) | payer MEDICARE, SELFPAY ==
[2018-12-19 10:40] LABS: Add Manual Diff / Slide Review NO; Basophils Absolute Auto 100 /uL (0-100); Basophils Percent Auto 0.7 % (0-2); Eosinophils Absolute Auto 200 /uL (0-450); Eosinophils Percent Auto 2.2 % (2-4); Hematocrit 43.5 % (36-46); Hemoglobin 14.8 g/dL (12.0-16.0); Lymphocytes Absolute Auto 2900 /uL (1100-4500); Lymphocytes Percent Auto 39.7 % (25-40); Mean Corpuscular HGB Conc 34.1 % (30-36); Mean Corpuscular Hemoglobin 29.2 PG (26-34); Mean Corpuscular Volume 85.7 fL (80-100); Monocytes Absolute Auto 500 /uL (0-900); Monocytes Percent Auto 6.8 % (3-14); Neutrophils Absolute Auto 3700 /uL (1500-7000); Neutrophils Percent Auto 50.6 % (50-75); Platelet Count 249 X10^3/uL (150-400); Red Blood Cell Count 5.08 X10^6/uL (4.0-5.2); Red Cell Distribution Width 13.7 % (11.6-14.8); White Blood Cell Count 7.4 X10^3/uL (4.5-11.0)
[2018-12-19 10:44] LABS: Hemoglobin A1C% w Est Avg Glu 6.9 % (4.0-6.0)
[2018-12-19 11:05] LABS: Alanine Aminotransferase 38 IU/L (9-52); Albumin 4.4 g/dL (3.5-5.0); Albumin Globulin Ratio 1.4 (1.0-2.8); Alkaline Phosphatase 63 U/L (38-126); Aspartate Aminotransferase 32 IU/L (14-36); BUN Creatinine Ratio 27.1 (6-22); Bilirubin Total 0.6 mg/dL (0.2-1.3); Blood Urea Nitrogen 19 mg/dL (7-17); Calcium 9.8 mg/dL (8.4-10.2); Carbon Dioxide 30 mmol/L (22-32); Chloride 99 mmol/L (98-107); Cholesterol 204 mg/dL (140-199); Estimated Glomerular Filt Rate > 60.0 mL/min (>60); Globulin 3.1 g/dL (1.7-4.1); Glucose 173 mg/dL (80-110); HDL Cholesterol 48 mg/dL (40-60); HEMOLYSIS < 15 (0-50); LDL Cholesterol Calculated 125 mg/dL (<100); Potassium 4.4 mmol/L (3.4-5.1); Sodium 138 mmol/L (137-145); Total Protein 7.5 g/dL (6.3-8.2); Triglycerides 155 mg/dL (35-150)
[2018-12-19 11:42] LABS: Thyroid Stimulating Hormone 1.67 uIU/mL (0.47-4.68)
== END ==
PROVIDERS: PCP Family Medicine; Visit Provider Family Medicine
DX: E78.5 Hyperlipidemia, unspecified (principal); R00.2 Palpitations; R73.9 Hyperglycemia, unspecified
CPT/HCPCS: 36415; 80053; 80061; 83036; 84443; 85025

== ENCOUNTER 2018-12-25 09:05 | Emergency (ER) | payer MEDICARE, SELFPAY ==
[2018-12-25] VITALS (10 sets, daily range): BP systolic 124–157; BP diastolic 53–77; PULSE 60–88; RESP 14–18; TEMP 36.4; O2SAT 90–98; BMI 30.7
--- NOTE | 2018-12-25 09:13 | DI.RAD.S_ITS ---
PROCEDURE: XR CHEST 1V INDICATIONS: chest pain TECHNIQUE: One view of the chest was acquired. COMPARISON: [facility], CR, XR CHEST 2V, 11/13/2018, 17:28. FINDINGS: Surgical changes and devices: None. Lungs and pleura: Lungs are clear. No pleural effusions or pneumothorax. Mediastinum: Mediastinal contours appear normal. Heart size is normal. Bones and chest wall: No suspicious bony lesions. Overlying soft tissues appear unremarkable. IMPRESSION: No acute process. Dictated by: Sarkis Shaw M.D. on 12/25/2018 at 8:58 Approved by: Sarkis Shaw M.D. on 12/25/2018 at 8:58
--- NOTE | 2018-12-25 09:20 | ED.DIZZY ---
HPI - Dizziness General Chief Complaint: Dizziness Stated Complaint: Dizziness Time Seen by Provider: 12/25/18 09:20 Source: patient and EMS Mode of arrival: EMS Limitations: no limitations History of Present Illness HPI Narrative: 73-year-old female comes to the emergency department with complaint of dizziness. Patient states that she was at home, she woke up this morning rolled over in bed and sort of felt dizzy. She does not like the room is spinning. She feels sort of more like there is pressure in her sinuses and her head. And it feels like she is balance like she might fall down. She denies any presyncope or syncope. She states walking does make it worse. She she states that movement of her makes it worse. If she does not move her head feels better. If she walks but does not move her head she still gets the symptoms. She had similar symptoms 2 or 3 years ago, was told she had dysfunction of her eustachian tubes. She has been a little congested and had pressure in her sinuses and head. She denies any headache, she denies any vision changes, new numbness or weakness, no difficulty with speech. No fevers, no cold cough or congestion in her chest. No shortness of breath or chest pain or pressure. She has been nauseated, no issues with bowel movements other than she did have 1 yesterday. No urinary issues. No swelling in her lower extremities. 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 About 3 weeks ago her metoprolol was decreased from 100-50 mg and her diltiazem was changed from 90 mg t.i.d. to 120 mg extended release once daily. She has had a total hysterectomy, appendectomy and tonsillectomy. States allergic to statins. No tobacco, alcohol or illicit. 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 Related Data Home Medications Medication Instructions Recorded Confirmed aspirin 81 mg PO HS #30 tab 03/09/16 12/25/18 cetirizine 10 mg capsule 10 mg PO DAILY cap 01/05/18 12/25/18 cholecalciferol (vitamin D3) 5,000 5,000 unit PO DAILY 05/06/18 12/25/18 unit capsule melatonin 10 mg capsule 10 mg PO BEDTIME PRN 05/06/18 12/25/18 diazepam [Valium] 10 mg PO HS PRN 12/25/18 12/25/18 diltiazem HCl 120 mg PO DAILY 12/25/18 12/25/18 metoprolol succinate 50 mg PO BID 12/25/18 12/25/18 Previous Rx's Medication Instructions Recorded blood sugar diagnostic strips #100 each 01/05/18 meclizine 25 mg PO BID-QID PRN #10 tab 12/25/18 prednisone 20 mg PO DAILY #3 tab 12/25/18 Allergies Allergy/AdvReac Type Severity Reaction Status Date / Time fluticasone [From Flonase] Allergy Severe lip/mouth Verified 12/25/18 09:09 swelling simvastatin AdvReac Intermediate Severe Verified 12/25/18 09:09 muscle weekness and pain Review of Systems Review of Systems ROS Unobtainable: All systems reviewed & are unremarkable except as noted in HPI and below Constitutional Denies chills, Denies fever(s), Denies headache(s), Denies lethargy and Denies weakness Eyes Denies change in vision ENT Ears, Nose, Mouth, and Throat: Denies abnormal hearing, Denies vertigo, Reports dizziness, Denies otalgia, Denies facial pain, Denies headache(s), Denies nasal congestion, Denies sinus pain, Reports sinus pressure and Denies sore throat Cardiovascular Denies chest pain, Denies diaphoresis, Denies syncope, Denies rapid heart rate, Denies edema, Denies irregular heart rhythm, Reports lightheadedness, Denies palpitations, Denies dyspnea, Denies dyspnea on exertion and Denies orthopnea Respiratory Denies change in phlegm color, Denies chest congestion, Denies cough, Denies dyspnea, Denies dyspnea on exertion and Denies wheezing Gastrointestinal Gastrointestinal: Denies abdominal pain, Denies change in bowel habits, Denies diarrhea, Reports nausea and Denies vomiting Genitourinary Denies hematuria, Denies dysuria, Denies flank pain, Denies urinary incontinence, Denies urinary hesitancy and Denies urinary urgency Musculoskeletal Denies abnormal gait, Denies back pain, Denies muscle weakness, Denies numbness and Denies tingling Neurologic Denies abnormal hearing, Denies abnormal speech, Denies abnormal gait, Denies vertigo, Reports dizziness, Denies syncope, Denies headache(s), Denies focal weakness, Denies numbness, Denies sensory deficit, Denies tingling and Denies weakness Endocrine Denies palpitations Allergic/Immunologic Denies wheezing PFSH Medical History Allergic rhinitis (Chronic Unknown) Diabetes (Chronic Unknown) Hyperlipemia (Chronic Unknown) Hypertension (Chronic Unknown) Left-sided tinnitus (Chronic Unknown) SVT (supraventricular tachycardia) (Chronic 2014) Surgical History History of carpal tunnel release (Resolved 05/2013) Hx of hysterectomy (Resolved Unknown) Hx of tonsillectomy (Resolved Unknown) Family History Father No problems noted. Mother No problems noted. Social History Smoking Status: Former smoker Tobacco: How many years used: 30 alcohol intake: never Family History Father No problems noted. Mother No problems noted. Social History Smoking Status: Former smoker Tobacco: How many years used: 30 alcohol intake: never Exam Narrative Exam Narrative: GEN: well nourished, well appearing female, alert and oriented x 3, patient appears to be in no acute distress. HEENT: Atraumatic, pupils are equal round reactive to light, extraocular movements are intact, no nystagmus, nares are clear, TMs are clear with no fluid, there is no conjunctival pallor. Throat is clear without any exudates, erythema, tonsillar enlargement or uvular deviation, no facial droop. HEART: Regular rate and rhythm without murmur, clicks, rubs. No carotid bruits, pulses are equal in upper and lower extremities LUNGS:Lungs clear to auscultation, no wheezes, rales, crackles, chest moves symmetrically ABD:bowel sounds normal, soft, non-tender, no guarding, rebound, rigidity, no masses noted, no hepatosplenomegaly :No CVA tenderness MSCL: Non-tender, no muscle atrophy, muscles strength 5/5 upper and lower extremities, full range of motion, normal gait NEURO:CN 2-12 intact, sensation normal, reflexes 2/4 upper and lower extremities. finger nose finger test normal, heel doherty test normal, romberg normal Initial Vital Signs Initial Vital Signs: Vital Signs Temperature 97.5 F L 12/25/18 09:09 Pulse Rate 88 12/25/18 09:09 Respiratory Rate 16 12/25/18 09:09 Blood Pressure 157/62 H 12/25/18 09:09 Pulse Oximetry 98 12/25/18 09:09 Scores GCS Gregory coma scale eye opening: Spontaneous Gregory coma scale verbal response: Orientated Gregory coma scale motor response: Obey commands [place] coma scale total score: 15 Course Orders Ordered: ED Orders 12/25/18 09:43 CT head/brain wo con Stat 12/25/18 12:30 Urine Culture Stat Urine Microscopic Stat Discontinued Medications Sodium Chloride (Normal Saline 0.9%) 1,000 mls @ 150 mls/hr IV CONT ROXANA Last Infusion: 12/25/18 12:17 Dose: 0 mls/hr Infusion: 12/25/18 11:08 Dose: 999 mls/hr Admin: 12/25/18 09:57 Dose: 150 mls/hr Lorazepam (Ativan) 0.5 mg PO NOW ONE Stop: 12/25/18 10:31 Last Admin: 12/25/18 10:32 Dose: 0.5 mg Ondansetron HCl (Zofran) 4 mg IV NOW ONE Stop: 12/25/18 09:34 Last Admin: 12/25/18 09:35 Dose: 4 mg Vital Signs - 8 hr 12/25/18 11:00 12/25/18 11:26 12/25/18 11:30 Pulse Rate 74 60 76 Respiratory Rate 16 14 18 Blood Pressure [Right Arm] 124/59 L 134/67 129/53 L Pulse Oximetry 92 98 12/25/18 12:24 12/25/18 12:25 12/25/18 12:28 Pulse Rate 73 73 85 Respiratory Rate 16 15 16 Blood Pressure [Right Arm] 126/64 152/68 H Pulse Oximetry 95 97 94 MDM - Dizziness Lab Data Attestation: I reviewed the patient's lab results. Result diagrams: 12/25/18 09:16 12/25/18 09:16 Lab Results 06/12/25/18 12/25/18 Range/Units 09:16 09:16 09:16 WBC 6.4 (4.5-11.0) X10^3/uL RBC 5.02 (4.0-5.2) X10^6/uL Hgb 14.8 (12.0-16.0) g/dL Hct 43.1 (36-46) % MCV 86.0 (80-100) fL MCH 29.5 (26-34) PG MCHC 34.3 (30-36) % RDW 13.5 (11.6-14.8) % Plt Count 205 (150-400) X10^3/uL Neut % (Auto) 45.0 L (50-75) % Lymph % (Auto) 44.9 H (25-40) % [place] % (Auto) 6.8 (3-14) % Eos % (Auto) 2.8 (2-4) % Baso % (Auto) 0.5 (0-2) % Neut # (Auto) 2900 (0263-3686) /uL Lymph # (Auto) 2900 (0690-7001) /uL [place] # (Auto) 400 (0-900) /uL Eos # (Auto) 200 (0-450) /uL Baso # (Auto) 0 (0-100) /uL PT 11.0 (10.1-12.7) SECONDS INR 1.0 (0.9-1.3) APTT 31 (26.4-36.2) SECONDS Sodium 140 (137-145) mmol/L Potassium 4.1 (3.4-5.1) mmol/L Chloride 102 (98-107) mmol/L Carbon Dioxide 29 (22-32) mmol/L BUN 19 H (7-17) mg/dL Creatinine 0.50 L (0.52-1.04) mg/dL Estimated GFR > 60.0 (>60) mL/min BUN/Creatinine Ratio 38.0 H (6-22) Glucose 160 H (80-110) mg/dL Calcium 9.8 (8.4-10.2) mg/dL Total Bilirubin 0.6 (0.2-1.3) mg/dL AST 37 H (14-36) IU/L ALT 49 (9-52) IU/L Alkaline Phosphatase 58 (38-126) U/L Total Creatine Kinase 61 (30-135) U/L CK-MB (CK-2) TNP CK-MB (CK-2) Rel Index TNP Troponin I < 0.012 (0.01-0.034) ng/mL Total Protein 7.4 (6.3-8.2) g/dL Albumin 4.3 (3.5-5.0) g/dL Globulin 3.1 (1.7-4.1) g/dL Albumin/Globulin Ratio 1.4 (1.0-2.8) Lipase 183 (23-300) U/L Urine RBC (0-5/HPF) Urine WBC (0-5/HPF) Ur Squamous Epith Cells (0-5/HPF) Urine Bacteria (None) Ur Culture Indicated? 12/25/18 Range/Units 12:30 WBC (4.5-11.0) X10^3/uL RBC (4.0-5.2) X10^6/uL Hgb (12.0-16.0) g/dL Hct (36-46) % MCV (80-100) fL MCH (26-34) PG MCHC (30-36) % RDW (11.6-14.8) % Plt Count (150-400) X10^3/uL Neut % (Auto) (50-75) % Lymph % (Auto) (25-40) % [place] % (Auto) (3-14) % Eos % (Auto) (2-4) % Baso % (Auto) (0-2) % Neut # (Auto) (8866-7355) /uL Lymph # (Auto) (2344-8821) /uL [place] # (Auto) (0-900) /uL Eos # (Auto) (0-450) /uL Baso # (Auto) (0-100) /uL PT (10.1-12.7) SECONDS INR (0.9-1.3) APTT (26.4-36.2) SECONDS Sodium (137-145) mmol/L Potassium (3.4-5.1) mmol/L Chloride (98-107) mmol/L Carbon Dioxide (22-32) mmol/L BUN (7-17) mg/dL Creatinine (0.52-1.04) mg/dL Estimated GFR (>60) mL/min BUN/Creatinine Ratio (6-22) Glucose (80-110) mg/dL Calcium (8.4-10.2) mg/dL Total Bilirubin (0.2-1.3) mg/dL AST (14-36) IU/L ALT (9-52) IU/L Alkaline Phosphatase (38-126) U/L Total Creatine Kinase (30-135) U/L CK-MB (CK-2) CK-MB (CK-2) Rel Index Troponin I (0.01-0.034) ng/mL Total Protein (6.3-8.2) g/dL Albumin (3.5-5.0) g/dL Globulin (1.7-4.1) g/dL Albumin/Globulin Ratio (1.0-2.8) Lipase (23-300) U/L Urine RBC None seen (0-5/HPF) Urine WBC 1-5/hpf (0-5/HPF) Ur Squamous Epith Cells 0-1 /hpf (0-5/HPF) Urine Bacteria Moderate (10-30) H (None) Ur Culture Indicated? Specimen cultured Urine Dip Bedside Urine Glucose Negative Bedside Urine Bilirubin - Negative Bedside Urine Ketone - Negative Urine Specific [place] 1.015 Bedside Urine Occult Blood - Negative Bedside Urine pH 6.0 Bedside Urine Protein - Negative Bedside Urine Urobilinogen - Negative Bedside Urine Nitrite - Negative Bedside Urine Leukocytes ++ 125 Esterase Imaging Data Chest x-ray: Radiologist's impression: [address] [address] XRay Report Signed Patient: Rica Fabian [facility]#: [id number] : 5Acct:[id number] Age/Sex: 73 / FDate of Service: 12/25/18 Loc: ED Accession Number: [id number] Procedure: XR chest 1V Ordering Provider: Fernanda Doyle D.O. PROCEDURE: XR CHEST 1V INDICATIONS: chest pain TECHNIQUE: One view of the chest was acquired. [facility] 17[facility]28. FINDINGS: Surgical changes and devices: None. Lungs and pleura: Lungs are clear. No pleural effusions or pneumothorax. Mediastinum: Mediastinal contours appear normal. Heart size is normal. Bones and chest wall: No suspicious bony lesions. Overlying soft tissues appear unremarkable. IMPRESSION: No acute process. Dictated by: Sarkis Shaw M.D. on 12/25/2018 at 8:58 Approved by: Sarkis Shaw M.D. on 12/25/2018 at 8:58 CT scan - head: Radiologist's impression: final report, no acute abnormality. 0 volume loss for age with resultant ventricular and sulcal prominence. Periventricular and deep white matter chronic small vessel ischemic changes. Internal carotid artery atherosclerosis intracranially. ECG Data Attestation: I personally reviewed and interpreted this ECG as follows: Prior ECG tracings: available for review Interpretation: Sinus rhythm rate of 76 P are 166 QRS of 99 QTC of 409. No ST elevation or depression. Similar to 11/13/18. [facility] Narrative Medical decision making narrative: Patient had Ativan 0.5 mg p.o. as she stated she was too claustrophobic to have a CT scan. Lab work does not show major abnormalities patient has not been able to give a urine yet, head CT and chest x-ray are negative. Patient is feeling better but has not been ambulating. Giving fluids and oral hydration. Patient had ambulation trial and tolerated well. URine shows leuks no nitrates, no urinary symptoms. Discharge Plan Departure Patient Disposition: Home Clinical Impression: Dizziness Discharge Date/Time: 12/25/18 13:22 Interventions: ED Discharge Assessment Last Done: 12/25/18 13:17 Instructions: DI for Dizziness-Nonvertigo Activity Restrictions/Additional Instructions: Follow-up with primary care in the next 2-3 days for recheck. Call tomorrow for an appointment. Take medication for dizziness/vertigo as prescribed if needed. This medication can make you sleepy do not drive, perform hazardous activities or make any major decisions while taking it. Take prednisone once daily until gone. Prescription was sent to [facility] in [place]. Urine culture is pending, if positive you should expect a phone call from us. Return to the emergency department for fevers greater 100.4 F, sudden severe headaches, new weakness, numbness, difficulty with speech, passing out, sudden vision changes, persistent vomiting or other new or concerning symptoms. Prescriptions: New prednisone 20 mg tablet 20 mg PO DAILY Qty: 3 RF: 0 meclizine 25 mg tablet,chewable 25 mg PO BID-QID PRN (Reason: dizziness) Qty: 10 RF: 0 No Action cetirizine [Zyrtec] 10 mg capsule 10 mg PO DAILY RF: 0 blood sugar diagnostic [FreeStyle Test] strip .ROUTE .MEDSUPPLY Qty: 100 RF: 0 cholecalciferol (vitamin D3) 5,000 unit capsule 5,000 unit PO DAILY RF: 0 melatonin 10 mg capsule 10 mg PO BEDTIME PRN (Reason: Insomnia) RF: 0 aspirin 81 MG tablet,delayed release (DR/EC) 81 mg PO HS Qty: 30 RF: 0 diltiazem HCl 120 mg capsule,extended release 24hr 120 mg PO DAILY RF: 0 metoprolol succinate 50 mg tablet extended release 24 hr 50 mg PO BID RF: 0 diazepam [Valium] 10 mg tablet 10 mg PO HS PRN (Reason: flying ) RF: 0 Referrals: Yenifer Davis DO [Primary Care Provider] -
--- NOTE | 2018-12-25 09:30 | PC.NURSE ---
diltiazem 30mg tid to 120mg daily. now still feeling dizzy and with nausea, noted, heart rate down to 46.
[2018-12-25 09:34] LABS: Add Manual Diff / Slide Review NO; Basophils Absolute Auto 0 /uL (0-100); Basophils Percent Auto 0.5 % (0-2); Eosinophils Absolute Auto 200 /uL (0-450); Eosinophils Percent Auto 2.8 % (2-4); Hematocrit 43.1 % (36-46); Hemoglobin 14.8 g/dL (12.0-16.0); Lymphocytes Absolute Auto 2900 /uL (1100-4500); Lymphocytes Percent Auto 44.9 % (25-40); Mean Corpuscular HGB Conc 34.3 % (30-36); Mean Corpuscular Hemoglobin 29.5 PG (26-34); Monocytes Absolute Auto 400 /uL (0-900); Monocytes Percent Auto 6.8 % (3-14); Neutrophils Absolute Auto 2900 /uL (1500-7000); Platelet Count 205 X10^3/uL (150-400); Red Blood Cell Count 5.02 X10^6/uL (4.0-5.2); Red Cell Distribution Width 13.5 % (11.6-14.8); White Blood Cell Count 6.4 X10^3/uL (4.5-11.0)
[2018-12-25] MEDS: ONDANSETRON 4 MG/2 ML INJ IV (09:35)
--- NOTE | 2018-12-25 09:43 | DI.CT.S_ITS ---
PROCEDURE: CT HEAD/BRAIN WO CON INDICATIONS: dizziness, started today TECHNIQUE: Noncontrast 4.5 mm thick angled axial sections acquired from the foramen magnum to the vertex, with coronal and sagittal reformats. For radiation dose reduction, the following was used: automated exposure control, adjustment of mA and/or kV according to patient size. COMPARISON: None. FINDINGS: Image quality: Excellent. CSF spaces: Basal cisterns are patent. No extra-axial fluid collections. The ventricles are symmetric in size and shape. Brain: No intracranial bleeds or masses. There is cerebral volume loss for age, with resultant ventricular and sulcal prominence. There are periventricular and deep white matter chronic small vessel ischemic changes. There is intracranial internal carotid artery atherosclerosis. Skull and face: Calvarium and visualized facial bones appear intact, without suspicious lesions. Sinuses: Visualized sinuses and mastoids are clear. IMPRESSION: No acute intracranial abnormality. Dictated by: Sarkis Shaw M.D. on 12/25/2018 at 10:22 Approved by: Sarkis Shaw M.D. on 12/25/2018 at 10:23
[2018-12-25 09:44] LABS: PTT Partial Thromboplastin Tim 31 SECONDS (26.4-36.2)
--- NOTE | 2018-12-25 09:44 | ED_ITS ---
HPI - Dizziness General Chief Complaint: Dizziness Stated Complaint: Dizziness Time Seen by Provider: 12/25/18 09:20 Source: patient and EMS Mode of arrival: EMS Limitations: no limitations History of Present Illness HPI Narrative: 73-year-old female comes to the emergency department with complaint of dizziness. Patient states that she was at home, she woke up this morning rolled over in bed and sort of felt dizzy. She does not like the room is spinning. She feels sort of more like there is pressure in her sinuses and her head. And it feels like she is balance like she might fall down. She denies any presyncope or syncope. She states walking does make it worse. She she states that movement of her makes it worse. If she does not move her head feels better. If she walks but does not move her head she still gets the symptoms. She had similar symptoms 2 or 3 years ago, was told she had dysfunction of her eustachian tubes. She has been a little congested and had pressure in her sinuses and head. She denies any headache, she denies any vision changes, new numbness or weakness, no difficulty with speech. No fevers, no cold cough or congestion in her chest. No shortness of breath or chest pain or pressure. She has been nauseated, no issues with bowel movements other than she did have 1 yesterday. No urinary issues. No swelling in her lower extremities. 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 About 3 weeks ago her metoprolol was decreased from 100-50 mg and her diltiazem was changed from 90 mg t.i.d. to 120 mg extended release once daily. She has had a total hysterectomy, appendectomy and tonsillectomy. States allergic to statins. No tobacco, alcohol or illicit. Yenifer Davis her PCP and Dr. Javier is her workforce development specialist. Related Data Home Medications Medication Instructions Recorded Confirmed aspirin 81 mg PO HS #30 tab 03/09/16 12/25/18 cetirizine 10 mg capsule 10 mg PO DAILY cap 01/05/18 12/25/18 cholecalciferol (vitamin D3) 5,000 5,000 unit PO DAILY 05/06/18 12/25/18 unit capsule melatonin 10 mg capsule 10 mg PO BEDTIME PRN 05/06/18 12/25/18 diazepam [Valium] 10 mg PO HS PRN 12/25/18 12/25/18 diltiazem HCl 120 mg PO DAILY 12/25/18 12/25/18 metoprolol succinate 50 mg PO BID 12/25/18 12/25/18 Previous Rx's Medication Instructions Recorded blood sugar diagnostic strips #100 each 01/05/18 meclizine 25 mg PO BID-QID PRN #10 tab 12/25/18 prednisone 20 mg PO DAILY #3 tab 12/25/18 Allergies Allergy/AdvReac Type Severity Reaction Status Date / Time fluticasone [From Flonase] Allergy Severe lip/mouth Verified 12/25/18 09:09 swelling simvastatin AdvReac Intermediate Severe Verified 12/25/18 09:09 muscle weekness and pain Review of Systems Review of Systems ROS Unobtainable: All systems reviewed & are unremarkable except as noted in HPI and below Constitutional Denies chills, Denies fever(s), Denies headache(s), Denies lethargy and Denies weakness Eyes Denies change in vision ENT Ears, Nose, Mouth, and Throat: Denies abnormal hearing, Denies vertigo, Reports dizziness, Denies otalgia, Denies facial pain, Denies headache(s), Denies nasal congestion, Denies sinus pain, Reports sinus pressure and Denies sore throat Cardiovascular Denies chest pain, Denies diaphoresis, Denies syncope, Denies rapid heart rate, Denies edema, Denies irregular heart rhythm, Reports lightheadedness, Denies palpitations, Denies dyspnea, Denies dyspnea on exertion and Denies orthopnea Respiratory Denies change in phlegm color, Denies chest congestion, Denies cough, Denies dyspnea, Denies dyspnea on exertion and Denies wheezing Gastrointestinal Gastrointestinal: Denies abdominal pain, Denies change in bowel habits, Denies diarrhea, Reports nausea and Denies vomiting Genitourinary Denies hematuria, Denies dysuria, Denies flank pain, Denies urinary incontinence, Denies urinary hesitancy and Denies urinary urgency Musculoskeletal Denies abnormal gait, Denies back pain, Denies muscle weakness, Denies numbness and Denies tingling Neurologic Denies abnormal hearing, Denies abnormal speech, Denies abnormal gait, Denies vertigo, Reports dizziness, Denies syncope, Denies headache(s), Denies focal weakness, Denies numbness, Denies sensory deficit, Denies tingling and Denies weakness Endocrine Denies palpitations Allergic/Immunologic Denies wheezing PFSH Medical History Allergic rhinitis (Chronic Unknown) Diabetes (Chronic Unknown) Hyperlipemia (Chronic Unknown) Hypertension (Chronic Unknown) Left-sided tinnitus (Chronic Unknown) SVT (supraventricular tachycardia) (Chronic 2014) Surgical History History of carpal tunnel release (Resolved 05/2013) Hx of hysterectomy (Resolved Unknown) Hx of tonsillectomy (Resolved Unknown) Family History Father No problems noted. Mother No problems noted. Social History Smoking Status: Former smoker Tobacco: How many years used: 30 alcohol intake: never Family History Father No problems noted. Mother No problems noted. Social History Smoking Status: Former smoker Tobacco: How many years used: 30 alcohol intake: never Exam Narrative Exam Narrative: GEN: well nourished, well appearing female, alert and oriented x 3, patient appears to be in no acute distress. HEENT: Atraumatic, pupils are equal round reactive to light, extraocular movements are intact, no nystagmus, nares are clear, TMs are clear with no fluid, there is no conjunctival pallor. Throat is clear without any exudates, erythema, tonsillar enlargement or uvular deviation, no facial droop. HEART: Regular rate and rhythm without murmur, clicks, rubs. No carotid bruits, pulses are equal in upper and lower extremities LUNGS:Lungs clear to auscultation, no wheezes, rales, crackles, chest moves sym metrically ABD:bowel sounds normal, soft, non-tender, no guarding, rebound, rigidity, no masses noted, no hepatosplenomegaly :No CVA tenderness MSCL: Non-tender, no muscle atrophy, muscles strength 5/5 upper and lower extremities, full range of motion, normal gait NEURO:CN 2-12 intact, sensation normal, reflexes 2/4 upper and lower extremities. finger nose finger test normal, heel doherty test normal, romberg normal Initial Vital Signs Initial Vital Signs: Vital Signs Temperature 97.5 F L 12/25/18 09:09 Pulse Rate 88 12/25/18 09:09 Respiratory Rate 16 12/25/18 09:09 Blood Pressure 157/62 H 12/25/18 09:09 Pulse Oximetry 98 12/25/18 09:09 Scores GCS Roxie coma scale eye opening: Spontaneous Gregory coma scale verbal response: Orientated Roxie coma scale motor response: Obey commands Gregory coma scale total score: 15 Course Orders Ordered: ED Orders 12/25/18 09:43 CT head/brain wo con Stat 12/25/18 12:30 Urine Culture Stat Urine Microscopic Stat Discontinued Medications Sodium Chloride (Normal Saline 0.9%) 1,000 mls @ 150 mls/hr IV CONT ROXANA Last Infusion: 12/25/18 12:17 Dose: 0 mls/hr Infusion: 12/25/18 11:08 Dose: 999 mls/hr Admin: 12/25/18 09:57 Dose: 150 mls/hr Lorazepam (Ativan) 0.5 mg PO NOW ONE Stop: 12/25/18 10:31 Last Admin: 12/25/18 10:32 Dose: 0.5 mg Ondansetron HCl (Zofran) 4 mg IV NOW ONE Stop: 12/25/18 09:34 Last Admin: 12/25/18 09:35 Dose: 4 mg Vital Signs - 8 hr 12/25/18 11:00 12/25/18 11:26 12/25/18 11:30 Pulse Rate 74 60 76 Respiratory Rate 16 14 18 Blood Pressure [Right Arm] 124/59 L 134/67 129/53 L Pulse Oximetry 92 98 12/25/18 12:24 12/25/18 12:25 12/25/18 12:28 Pulse Rate 73 73 85 Respiratory Rate 16 15 16 Blood Pressure [Right Arm] 126/64 152/68 H Pulse Oximetry 95 97 94 MDM - Dizziness Lab Data Attestation: I reviewed the patient's lab results. Result diagrams: 12/25/18 09:16 12/25/18 09:16 Lab Results 0612/25/18 12/25/18 Range/Units 09:16 09:16 09:16 WBC 6.4 (4.5-11.0) X10^3/uL RBC 5.02 (4.0-5.2) X10^6/uL Hgb 14.8 (12.0-16.0) g/dL Hct 43.1 (36-46) % MCV 86.0 (80-100) fL MCH 29.5 (26-34) PG MCHC 34.3 (30-36) % RDW 13.5 (11.6-14.8) % Plt Count 205 (150-400) X10^3/uL Neut % (Auto) 45.0 L (50-75) % Lymph % (Auto) 44.9 H (25-40) % Price % (Auto) 6.8 (3-14) % Eos % (Auto) 2.8 (2-4) % Baso % (Auto) 0.5 (0-2) % Neut # (Auto) 2900 (5229-5910) /uL Lymph # (Auto) 2900 (3198-2059) /uL Price # (Auto) 400 (0-900) /uL Eos # (Auto) 200 (0-450) /uL Baso # (Auto) 0 (0-100) /uL PT 11.0 (10.1-12.7) SECONDS INR 1.0 (0.9-1.3) APTT 31 (26.4-36.2) SECONDS Sodium 140 (137-145) mmol/L Potassium 4.1 (3.4-5.1) mmol/L Chloride 102 (98-107) mmol/L Carbon Dioxide 29 (22-32) mmol/L BUN 19 H (7-17) mg/dL Creatinine 0.50 L (0.52-1.04) mg/dL Estimated GFR > 60.0 (>60) mL/min BUN/Creatinine Ratio 38.0 H (6-22) Glucose 160 H (80-110) mg/dL Calcium 9.8 (8.4-10.2) mg/dL Total Bilirubin 0.6 (0.2-1.3) mg/dL AST 37 H (14-36) IU/L ALT 49 (9-52) IU/L Alkaline Phosphatase 58 (38-126) U/L Total Creatine Kinase 61 (30-135) U/L CK-MB (CK-2) TNP CK-MB (CK-2) Rel Index TNP Troponin I < 0.012 (0.01-0.034) ng/mL Total Protein 7.4 (6.3-8.2) g/dL Albumin 4.3 (3.5-5.0) g/dL Globulin 3.1 (1.7-4.1) g/dL Albumin/Globulin Ratio 1.4 (1.0-2.8) Lipase 183 (23-300) U/L Urine RBC (0-5/HPF) Urine WBC (0-5/HPF) Ur Squamous Epith Cells (0-5/HPF) Urine Bacteria (None) Ur Culture Indicated? 12/25/18 Range/Units 12:30 WBC (4.5-11.0) X10^3/uL RBC (4.0-5.2) X10^6/uL Hgb (12.0-16.0) g/dL Hct (36-46) % MCV (80-100) fL MCH (26-34) PG MCHC (30-36) % RDW (11.6-14.8) % Plt Count (150-400) X10^3/uL Neut % (Auto) (50-75) % Lymph % (Auto) (25-40) % Price % (Auto) (3-14) % Eos % (Auto) (2-4) % Baso % (Auto) (0-2) % Neut # (Auto) (3779-9495) /uL Lymph # (Auto) (9582-9906) /uL Price # (Auto) (0-900) /uL Eos # (Auto) (0-450) /uL Baso # (Auto) (0-100) /uL PT (10.1-12.7) SECONDS INR (0.9-1.3) APTT (26.4-36.2) SECONDS Sodium (137-145) mmol/L Potassium (3.4-5.1) mmol/L Chloride (98-107) mmol/L Carbon Dioxide (22-32) mmol/L BUN (7-17) mg/dL Creatinine (0.52-1.04) mg/dL Estimated GFR (>60) mL/min BUN/Creatinine Ratio (6-22) Glucose (80-110) mg/dL Calcium (8.4-10.2) mg/dL Total Bilirubin (0.2-1.3) mg/dL AST (14-36) IU/L ALT (9-52) IU/L Alkaline Phosphatase (38-126) U/L Total Creatine Kinase (30-135) U/L CK-MB (CK-2) CK-MB (CK-2) Rel Index Troponin I (0.01-0.034) ng/mL Total Protein (6.3-8.2) g/dL Albumin (3.5-5.0) g/dL Globulin (1.7-4.1) g/dL Albumin/Globulin Ratio (1.0-2.8) Lipase (23-300) U/L Urine RBC None seen (0-5/HPF) Urine WBC 1-5/hpf (0-5/HPF) Ur Squamous Epith Cells 0-1 /hpf (0-5/HPF) Urine Bacteria Moderate (10-30) H (None) Ur Culture Indicated? Specimen cultured Urine Dip Bedside Urine Glucose Negative Bedside Urine Bilirubin - Negative Bedside Urine Ketone - Negative Urine Specific [place] 1.015 Bedside Urine Occult Blood - Negative Bedside Urine pH 6.0 Bedside Urine Protein - Negative Bedside Urine Urobilinogen - Negative Bedside Urine Nitrite - Negative Bedside Urine Leukocytes ++ 125 Esterase Imaging Data Chest x-ray: Radiologist's impression: [address] [address] XRay Report Signed Patient: Rica Fabian [facility]#: [id number] : 5Acct:[id number] Age/Sex: 73 / FDate of Service: 12/25/18 Loc: ED Accession Number: [id number] Procedure: XR chest 1V Ordering Provider: Fernanda Doyle D.O. PROCEDURE: XR CHEST 1V INDICATIONS: chest pain TECHNIQUE: One view of the chest was acquired. [facility]. FINDINGS: Surgical changes and devices: None. Lungs and pleura: Lungs are clear. No pleural effusions or pneumothorax. Mediastinum: Mediastinal contours appear normal. Heart size is normal. Bones and chest wall: No suspicious bony lesions. Overlying soft tissues appe ar unremarkable. IMPRESSION: No acute process. Dictated by: Sarkis Shaw M.D. on 12/25/2018 at 8:58 Approved by: Sarkis Shaw M.D. on 12/25/2018 at 8:58 CT scan - head: Radiologist's impression: final report, no acute abnormality. 0 volume loss for age with resultant ventricular and sulcal prominence. Periventricular and deep white matter chronic small vessel ischemic changes. Internal carotid artery atherosclerosis intracranially. ECG Data Attestation: I personally reviewed and interpreted this ECG as follows: Prior ECG tracings: available for review Interpretation: Sinus rhythm rate of 76 P are 166 QRS of 99 QTC of 409. No ST elevation or depression. Similar to 11/13/18. [facility] Narrative Medical decision making narrative: Patient had Ativan 0.5 mg p.o. as she stated she was too claustrophobic to have a CT scan. Lab work does not show major abnormalities patient has not been able to give a urine yet, head CT and chest x-ray are negative. Patient is feeling better but has not been ambulating. G iving fluids and oral hydration. Patient had ambulation trial and tolerated well. URine shows leuks no nitrates, no urinary symptoms. Discharge Plan Departure Patient Disposition: Home Clinical Impression: Dizziness Discharge Date/Time: 12/25/18 13:22 Interventions: ED Discharge Assessment Last Done: 12/25/18 13:17 Instructions: DI for Dizziness-Nonvertigo Activity Restrictions/Additional Instructions: Follow-up with primary care in the next 2-3 days for recheck. Call tomorrow for an appointment. Take medication for dizziness/vertigo as prescribed if needed. This medication can make you sleepy do not drive, perform hazardous activities or make any major decisions while taking it. Take prednisone once daily until gone. Prescription was sent to [facility] in [place]. Urine culture is pending, if positive you should expect a phone call from us. Return to the emergency department for fevers greater 100.4 F, sudden severe headaches, new weakness, numbness, difficulty with speech, passing out, sudden vision changes, persistent vomiting or other new or concerning symptoms. Prescriptions: New prednisone 20 mg tablet 20 mg PO DAILY Qty: 3 RF: 0 meclizine 25 mg tablet,chewable 25 mg PO BID-QID PRN (Reason: dizziness) Qty: 10 RF: 0 No Action cetirizine [Zyrtec] 10 mg capsule 10 mg PO DAILY RF: 0 blood sugar diagnostic [FreeStyle Test] strip .ROUTE .MEDSUPPLY Qty: 100 RF: 0 cholecalciferol (vitamin D3) 5,000 unit capsule 5,000 unit PO DAILY RF: 0 melatonin 10 mg capsule 10 mg PO BEDTIME PRN (Reason: Insomnia) RF: 0 aspirin 81 MG tablet,delayed release (DR/EC) 81 mg PO HS Qty: 30 RF: 0 diltiazem HCl 120 mg capsule,extended release 24hr 120 mg PO DAILY RF: 0 metoprolol succinate 50 mg tablet extended release 24 hr 50 mg PO BID RF: 0 diazepam [Valium] 10 mg tablet 10 mg PO HS PRN (Reason: flying ) RF: 0 Referrals: Yenifer Davis DO [Primary Care Provider] -
[2018-12-25 09:45] LABS: Alanine Aminotransferase 49 IU/L (9-52); Albumin 4.3 g/dL (3.5-5.0); Albumin Globulin Ratio 1.4 (1.0-2.8); Alkaline Phosphatase 58 U/L (38-126); Aspartate Aminotransferase 37 IU/L (14-36); Bilirubin Total 0.6 mg/dL (0.2-1.3); Blood Urea Nitrogen 19 mg/dL (7-17); Calcium 9.8 mg/dL (8.4-10.2); Carbon Dioxide 29 mmol/L (22-32); Chloride 102 mmol/L (98-107); Creatine Kinase 61 U/L (30-135); Estimated Glomerular Filt Rate > 60.0 mL/min (>60); Globulin 3.1 g/dL (1.7-4.1); Glucose 160 mg/dL (80-110); HEMOLYSIS < 15 (0-50); Lipase 183 U/L (23-300); Potassium 4.1 mmol/L (3.4-5.1); Sodium 140 mmol/L (137-145); Total Protein 7.4 g/dL (6.3-8.2)
[2018-12-25 09:56] LABS: Troponin I < 0.012 ng/mL (0.01-0.034)
[2018-12-25] MEDS: SODIUM CHLORIDE 0.9% 1,000 ML 150 ML IV (09:57)
[2018-12-25] MEDS: LORazepam 0.5 MG TABLET PO (10:32)
--- NOTE | 2018-12-25 12:25 | PC.NURSE ---
with steady gait, states, still slightly with dizziness. no furthur nausea, tolerating drinking ice water.
[2018-12-25 12:31] LABS: RBC Urine None Seen (0-5/HPF)
[2018-12-25 12:46] LABS: Bacteria Urine Moderate (10-30); Squamous Epithelial Cell Urine 0-1 /HPF (0-5/HPF); WBC Urine 1-5/HPF (0-5/HPF)
[2018-12-25 12:47] LABS: Culture Indicated Urine Specimen Cultured
== END 2018-12-25 13:22 | disposition home or self-care (01) ==
PROVIDERS: Emergency Provider Emergency Medicine; PCP Family Medicine
DX: R42 Dizziness and giddiness (principal); I10 Essential (primary) hypertension; Z79.82 Long term (current) use of aspirin; Z87.898 Personal history of other specified conditions
CPT/HCPCS: 36591; 70450; 71045; 80053; 81003; 81015; 82550; 83690; 84484; 85025; 85610; 85730; 87077; 87086; 87186; 93005; 96361; 96374; 99285; J2405

== ENCOUNTER → 2019-05-31 10:31 | Outpatient (CLI) | payer MEDICARE, SELFPAY ==
[2019-05-31 11:07] LABS: Add Manual Diff / Slide Review NO; Basophils Absolute Auto 0 /uL (0-100); Basophils Percent Auto 0.3 % (0-2); Eosinophils Absolute Auto 200 /uL (0-450); Eosinophils Percent Auto 1.7 % (2-4); Hematocrit 42.6 % (36-46); Hemoglobin 14.6 g/dL (12.0-16.0); Lymphocytes Absolute Auto 2600 /uL (1100-4500); Lymphocytes Percent Auto 25.7 % (25-40); Mean Corpuscular HGB Conc 34.3 % (30-36); Mean Corpuscular Hemoglobin 29.2 PG (26-34); Mean Corpuscular Volume 85.2 fL (80-100); Monocytes Absolute Auto 800 /uL (0-900); Monocytes Percent Auto 7.6 % (3-14); Neutrophils Absolute Auto 6600 /uL (1500-7000); Neutrophils Percent Auto 64.7 % (50-75); Platelet Count 223 X10^3/uL (150-400); Red Cell Distribution Width 14.3 % (11.6-14.8); White Blood Cell Count 10.2 X10^3/uL (4.5-11.0)
[2019-05-31 11:42] LABS: Alanine Aminotransferase 31 IU/L (<35); Albumin 4.2 g/dL (3.5-5.0); Albumin Globulin Ratio 1.4 (1.0-2.8); Alkaline Phosphatase 56 U/L (38-126); Aspartate Aminotransferase 30 IU/L (14-36); BUN Creatinine Ratio 28.3 (6-22); Bilirubin Total 0.8 mg/dL (0.2-1.3); Blood Urea Nitrogen 17 mg/dL (7-17); Calcium 9.8 mg/dL (8.4-10.2); Carbon Dioxide 25 mmol/L (22-32); Chloride 102 mmol/L (98-107); Cholesterol 213 mg/dL (140-199); Estimated Glomerular Filt Rate > 60.0 mL/min (>60); Glucose 155 mg/dL (80-110); HDL Cholesterol 52 mg/dL (40-60); HEMOLYSIS < 15 (0-50); LDL Cholesterol Calculated 132 mg/dL (<100); Sodium 136 mmol/L (137-145); Total Protein 7.2 g/dL (6.3-8.2); Triglycerides 146 mg/dL (35-150)
[2019-05-31 12:01] LABS: Appearance Urine UA SL CLOUDY; Bilirubin Urine UA NEGATIVE (NEGATIVE); Color Urine UA YELLOW; Glucose Urine UA NEGATIVE (Negative); Ketones Urine UA NEGATIVE (NEGATIVE); Leukocyte Esterase Urine UA 3+ (NEGATIVE); Nitrite Urine UA NEGATIVE (Negative); Occult Blood Urine UA 1+ (Negative); Protein Urine UA NEGATIVE (Negative); Specific Gravity Urine UA <=1.005 (1.000-1.035); Urobilinogen Urine UA 0.2 E.U./dL (0.2)
[2019-05-31 12:07] LABS: Thyroid Stimulating Hormone 2.23 uIU/mL (0.47-4.68)
[2019-05-31 12:25] LABS: Bacteria Urine Many (>30); Culture Indicated Urine Cult Not Indicated; RBC Urine 0-1/HPF (0-5/HPF); Squamous Epithelial Cell Urine 5-10 /HPF (0-5/HPF); WBC Urine 10-30/HPF (0-5/HPF)
[2019-05-31 14:52] LABS: Hemoglobin A1C% w Est Avg Glu 7.3 % (4.0-6.0)
== END ==
PROVIDERS: PCP Family Medicine; Visit Provider Family Medicine
DX: E11.9 Type 2 diabetes mellitus without complications (principal); F41.9 Anxiety disorder, unspecified; I10 Essential (primary) hypertension; I47.2 Ventricular tachycardia; M10.9 Gout, unspecified; M25.40 Effusion, unspecified joint
CPT/HCPCS: 36415; 80053; 80061; 81001; 83036; 84443; 85025

== ENCOUNTER 2019-08-08 06:20 | Day surgery (SDC) | payer MEDICARE, SELFPAY ==
[2019-08-08] MEDS: PROPARACAINE 0.5% OPHTH SOL 2 DROPS EYE-OP (07:10)
[2019-08-08] MEDS: CATARACT EYE COMPOUND (10 DROPS/SYRINGE) 3 DROPS EYE-OP (07:13)
[2019-08-08 07:25] VITALS: BP 156/81; PULSE 83; RESP 14; TEMP 36.6; O2SAT 95; BMI 31.3
--- NOTE | 2019-08-08 07:43 | PM.PREOP ---
Pre-operative Note Interval Note History & Physical reviewed/Exam performed by Physician: No Changes to H&P: No
--- NOTE | 2019-08-08 07:43 | PM.OP.1 ---
Operative Date/Time/Diagnoses Pre-op diagnosis: Nuclear Cataract Left eye Post-op diagnosis: same Procedure & Clinicians Same procedure as scheduled: Yes Surgeon: Marvin Yousif Anesthesia Type: MAC +/- and Sedation Operative Notes Procedure in detail: Patient brought to the operating suite. Tetracaine drops placed in the left eye. Patient was prepped and draped in sterile manner. Wire lid speculum was placed in the eye. Betadine drops were placed on the eye. This was irrigated. Lidocaine jelly was placed on the eye. A paracentesis port was created with a side-port blade. 0.1 mL 1% preservative free lidocaine was injected into the anterior chamber. The anterior chamber was deepened with viscoelastic. 2.6 mm keratome was used to create a temporal clear corneal incision. Cystotome and Utrata forceps were used to create continuous tear capsulorrhexis. Balanced salt solution was used to hydro dissect the nucleus. The phacoemulsification handpiece was inserted and the nucleus was removed using the stop and chop technique. The irrigation aspiration handpiece was inserted and the remaining cortex was removed. Anterior chamber was deepened with viscoelastic. An Davis ZCB00 intraocular lens with a power of 18.5 was injected into the capsular bag. Irrigation aspiration handpiece was inserted and the remaining viscoelastic was removed. Incision was hydrated with balanced salt solution and found to be leak free with pressure with Weck-Telma sponges. 0.1 mL Vigamox injected anterior chamber. 0.3 mL Kenalog 10 mg was injected subconjunctivally. Lid speculum was removed. The patient left the operating room in excellent condition. Complications: none Post-operative Condition: stable Disposition: same day surgery
--- NOTE | 2019-08-08 07:52 | SUR.OPER ---
Supine on eye stretcher, head on extension cradle secured with tape. Arms tucked at sides with blanket. Pillow under knees.
[2019-08-08] MEDS: PHENYLEPHRINE/LIDOCAINE VIAL (OR) 0.2 ML EYE-OP (08:00)
[2019-08-08] MEDS: LIDOCAINE JELLY 2% 5 ML 1 APPLIC TOP (08:01)
[2019-08-08] MEDS: MOXIFLOXACIN INJ 5 MG/ML VIAL EYE-OP (08:01)
[2019-08-08] MEDS: CHONDROIDTIN/SOD HYALURONATE 1.05 ML SYRINGE INTRAOCULA (08:01)
[2019-08-08] MEDS: BALANCED SALT IRRIG SOLN NO.2 500 ML, EPINEPHrine 1 MG IRR (08:02)
[2019-08-08] MEDS: TETRACAINE 0.5% OPHTH DROPS 4 ML 2 DROPS EYE-OP (08:02)
[2019-08-08 08:07] VITALS: BP 147/84; PULSE 81; RESP 15; TEMP 36.3; O2SAT 97
[2019-08-08 08:18] VITALS: BP 148/82; PULSE 82; RESP 16; O2SAT 97
== END 2019-08-08 08:21 | disposition home or self-care (01) ==
PROVIDERS: PCP Family Medicine; Visit Provider Ophthalmology
PROC: (CPT 66984; principal; 2019-08-08 07:45)
DX: H25.12 Age-related nuclear cataract, left eye (principal); I10 Essential (primary) hypertension; E11.9 Type 2 diabetes mellitus without complications; Z79.84 Long term (current) use of oral hypoglycemic drugs
CPT/HCPCS: 66984; J0171; J2250; J3010

== ENCOUNTER 2019-08-22 06:05 | Day surgery (SDC) | payer MEDICARE, SELFPAY ==
[2019-08-22] MEDS: PROPARACAINE 0.5% OPHTH SOL 2 DROPS EYE-OP (07:12)
[2019-08-22] MEDS: CATARACT EYE COMPOUND (10 DROPS/SYRINGE) 3 DROPS EYE-OP (07:14)
[2019-08-22 07:22] VITALS: BP 161/83; PULSE 86; RESP 16; TEMP 36.9; O2SAT 94; BMI 30.4
[2019-08-22] MEDS: ONDANSETRON 4 MG/2 ML INJ (07:41)
--- NOTE | 2019-08-22 07:44 | PM.PREOP ---
Pre-operative Note Interval Note History & Physical reviewed/Exam performed by Physician: No Changes to H&P: No
--- NOTE | 2019-08-22 07:44 | PM.OP.1 ---
Operative Date/Time/Diagnoses Pre-op diagnosis: Nuclear cataract right eye Procedure & Clinicians Procedure: Cataract Surgery Same procedure as scheduled: Yes Surgeon: Marvin Yousif Anesthesia Type: MAC +/- and Sedation Operative Notes Procedure in detail: Patient brought to the operating suite. Tetracaine drops placed in the right eye. Patient was prepped and draped in sterile manner. Wire lid speculum was placed in the eye. Betadine drops were placed on the eye. This was irrigated. Lidocaine jelly was placed on the eye. A paracentesis port was created with a side-port blade. 0.1 mL 1% preservative free lidocaine was injected into the anterior chamber. The anterior chamber was deepened with viscoelastic. 2.6 mm keratome was used to create a temporal clear corneal incision. Cystotome and Utrata forceps were used to create continuous tear capsulorrhexis. Balanced salt solution was used to hydro dissect the nucleus. The phacoemulsification handpiece was inserted and the nucleus was removed using the stop and chop technique. The irrigation aspiration handpiece was inserted and the remaining cortex was removed. Anterior chamber was deepened with viscoelastic. An Davis ZCB00 intraocular lens with a power of 18.5 was injected into the capsular bag. Irrigation aspiration handpiece was inserted and the remaining viscoelastic was removed. Incision was hydrated with balanced salt solution and found to be leak free with pressure with Weck-Telma sponges. 0.1 mL Vigamox injected anterior chamber. 0.3 mL Kenalog 10 mg was injected subconjunctivally. Lid speculum was removed. The patient left the operating room in excellent condition. Complications: none Post-operative Condition: stable Disposition: same day surgery
[2019-08-22] MEDS: PHENYLEPHRINE/LIDOCAINE VIAL (OR) 0.2 ML EYE-OP ×2 (07:55→07:59)
[2019-08-22] MEDS: CHONDROIDTIN/SOD HYALURONATE 1.05 ML SYRINGE INTRAOCULA (07:55)
[2019-08-22] MEDS: BALANCED SALT IRRIG SOLN NO.2 500 ML, EPINEPHrine 1 MG IRR (07:56)
[2019-08-22] MEDS: TETRACAINE 0.5% OPHTH DROPS 4 ML 2 DROPS EYE-OP (07:57)
[2019-08-22] MEDS: TRIAMCINOLONE 50 MG/5 ML VIAL INJ (07:57)
[2019-08-22] MEDS: LIDOCAINE JELLY 2% 5 ML 1 APPLIC TOP (07:58)
[2019-08-22] MEDS: MOXIFLOXACIN INJ 5 MG/ML VIAL EYE-OP (08:00)
[2019-08-22 08:09] VITALS: BP 145/88; PULSE 86; RESP 15; TEMP 36.4; O2SAT 96
== END 2019-08-22 08:24 | disposition home or self-care (01) ==
PROVIDERS: PCP Family Medicine; Referring Provider Ophthalmology; Visit Provider Ophthalmology
PROC: (CPT 66984; principal; 2019-08-22 07:45)
DX: H25.11 Age-related nuclear cataract, right eye (principal)
CPT/HCPCS: 66984; J0171; J2250; J2405; J3010; J3301

== ENCOUNTER → 2020-02-15 09:53 | Outpatient (CLI) | payer MEDICARE, SELFPAY ==
[2020-02-15 11:13] LABS: Hemoglobin A1C% w Est Avg Glu 7.3 % (4.0-6.0)
== END ==
PROVIDERS: PCP Registered Nurse Diabetes Educator; Referring Provider Registered Nurse Diabetes Educator; Visit Provider Registered Nurse Diabetes Educator
DX: E11.9 Type 2 diabetes mellitus without complications (principal)
CPT/HCPCS: 36415; 83036

== ENCOUNTER → 2020-05-17 09:02 | Outpatient (CLI) | payer MEDICARE, SELFPAY ==
[2020-05-17 10:21] LABS: Add Manual Diff / Slide Review NO; Basophils Absolute Auto 0 /uL (0-100); Basophils Percent Auto 0.4 % (0-2); Eosinophils Absolute Auto 200 /uL (0-450); Eosinophils Percent Auto 2.2 % (2-4); Hematocrit 43.1 % (36-46); Hemoglobin 14.6 g/dL (12.0-16.0); Lymphocytes Absolute Auto 3000 /uL (1100-4500); Lymphocytes Percent Auto 40.4 % (25-40); Mean Corpuscular HGB Conc 33.9 % (30-36); Mean Corpuscular Hemoglobin 28.9 PG (26-34); Mean Corpuscular Volume 85.3 fL (80-100); Monocytes Absolute Auto 500 /uL (0-900); Monocytes Percent Auto 7.2 % (3-14); Neutrophils Absolute Auto 3700 /uL (1500-7000); Neutrophils Percent Auto 49.8 % (50-75); Platelet Count 250 X10^3/uL (150-400); Red Blood Cell Count 5.05 X10^6/uL (4.0-5.2); Red Cell Distribution Width 14.2 % (11.6-14.8); White Blood Cell Count 7.5 X10^3/uL (4.5-11.0)
[2020-05-17 10:35] LABS: Hemoglobin A1C% w Est Avg Glu 7.5 % (4.0-6.0)
[2020-05-17 11:35] LABS: Alanine Aminotransferase 29 IU/L (<35); Albumin 4.2 g/dL (3.5-5.0); Albumin Globulin Ratio 1.3 (1.0-2.8); Alkaline Phosphatase 64 U/L (38-126); Aspartate Aminotransferase 28 IU/L (14-36); BUN Creatinine Ratio 25.8 (6-22); Bilirubin Total 0.8 mg/dL (0.2-1.3); Blood Urea Nitrogen 16 mg/dL (7-17); Calcium 9.7 mg/dL (8.4-10.2); Carbon Dioxide 29 mmol/L (22-32); Chloride 98 mmol/L (98-107); Cholesterol 189 mg/dL (140-199); Estimated Glomerular Filt Rate > 60.0 mL/min (>60); Globulin 3.2 g/dL (1.7-4.1); Glucose 166 mg/dL (80-110); HDL Cholesterol 55 mg/dL (40-60); HEMOLYSIS < 15 (0-50); LDL Cholesterol Calculated 101 mg/dL (<100); Potassium 4.5 mmol/L (3.4-5.1); Sodium 134 mmol/L (137-145); Total Protein 7.4 g/dL (6.3-8.2); Triglycerides 167 mg/dL (35-150)
[2020-05-17 11:36] LABS: Creatinine Urine Random 45.3 mg/dL
[2020-05-17 11:38] LABS: Microalbumi Creatinin Ratio Ur 41.9 ug/mg CR (<30); Microalbumin Urine Random 1.9 mg/dL (0-1.6)
[2020-05-17 12:03] LABS: TSH w/ Reflex to FT4 1.48 uIU/mL (0.47-4.68)
== END ==
PROVIDERS: PCP Registered Nurse Diabetes Educator; Referring Provider Registered Nurse Diabetes Educator; Visit Provider Registered Nurse Diabetes Educator
DX: E11.9 Type 2 diabetes mellitus without complications (principal); F41.9 Anxiety disorder, unspecified; I10 Essential (primary) hypertension
CPT/HCPCS: 36415; 80053; 80061; 82043; 82570; 83036; 84443; 85025

== ENCOUNTER → 2020-09-20 11:49 | Outpatient (CLI) | payer MEDICARE, SELFPAY ==
[2020-09-20] MEDS: COVID-19 VACC, Ad26(JANSSEN)/PF 0.5 ML IM (11:54)
== END ==
PROVIDERS: PCP Registered Nurse Diabetes Educator; Visit Provider Internal Medicine
DX: Z23 Encounter for immunization (principal)
CPT/HCPCS: 0031A; 91303

== ENCOUNTER → 2020-12-30 10:19 | Outpatient (CLI) | payer MEDICARE, SELFPAY ==
[2020-12-30 11:22] LABS: Hemoglobin A1C% w Est Avg Glu 7.8 % (4.0-6.0)
[2020-12-30 11:28] LABS: Cholesterol 207 mg/dL (140-199); HDL Cholesterol 51 mg/dL (40-60); LDL Cholesterol Calculated 105 mg/dL (<100); Magnesium 1.4 mg/dL (1.6-2.3); Triglycerides 257 mg/dL (35-150)
[2020-12-30 12:54] LABS: Creatinine Urine Random 81.7 mg/dL
[2020-12-30 13:00] LABS: Microalbumi Creatinin Ratio Ur 41.6 ug/mg CR (<30); Microalbumin Urine Random 3.4 mg/dL (0-1.6)
== END ==
PROVIDERS: PCP Registered Nurse Diabetes Educator; Referring Provider Registered Nurse Diabetes Educator; Visit Provider Registered Nurse Diabetes Educator
DX: E11.9 Type 2 diabetes mellitus without complications (principal); I10 Essential (primary) hypertension; E78.5 Hyperlipidemia, unspecified; E83.42 Hypomagnesemia
CPT/HCPCS: 36415; 80061; 82043; 82570; 83036; 83735

== ENCOUNTER → 2021-01-02 07:49 | Outpatient (CLI) | payer MEDICARE, SELFPAY ==
--- NOTE | 2021-01-02 | DI.ECHO.S_ITS ---
[facility]---------+ [facility] +---------+ : : [address] : : : : [id number] : : : : Phone: [phone]+ Echocardiogram Report + + :Name: HAMILTON WINTERS Study Date: 01/02/2021 Height: 66 in : :[facility] ReadingLocation: Weight: 195 lb : : Gender: Female BSA: 2.0 m2 : :: 1945 Age: 75 yrs BP: 156/90 mmHg: :Reason For Study: MITRAL VALVE PROLAPSE : :Ordering Physician: ASHKAN, : :ANITRA Performed By: Yumiko Perez : :Referring: ANITRA LUTHER : + + Interpretation Summary The left ventricle is normal in size. The ejection fraction is estimated to be 60-65%. There has been no significant change in LVEF since the previous exam. The right ventricle is normal in size and function. There appears to be borderline prolapse of posterior mitral leaflet without any significant thickening or calcification. Mild MR. Previously patient has trivial MR. There is mild tricuspid regurgitation. Compared to the prior echo exam, there has been no change in TR severity. Right ventricular systolic pressure is estimated to be 24 mmHg plus the clinically estimated CVP which cannot be estimated on this exam. The aortic arch is mildly enlarged. 3.8 cm in diameter. Previously it was 3.3 cm. Procedure: A two-dimensional transthoracic echocardiogram with color flow and Doppler was performed. The study quality was technically difficult. Comparison is made with the echocardiogram of 08/15/2013. The patient was in sinus rhythm with heart rates between 74-81 bpm during the exam. Left Ventricle: The left ventricle is normal in size. Proximal septal thickening is noted. There is no echo evidence for significant left ventricular outflow tract obstruction. There is no thrombus. The ejection fraction is estimated to be 60-65%. There has been no significant change since the previous exam. Septal motion is consistent with conduction abnormality. Diastolic parameters suggest a relaxation abnormality of the left ventricle, consistent with probable normal filling pressures. Right Ventricle: The right ventricle is normal in size and function. Atria: The left atrium is mildly dilated. The left atrium has remained unchanged in size since the prior echo exam. The right atrium is mildly dilated. There is no Doppler evidence for an interatrial shunt. Mitral Valve: There appears to be borderline prolapse of posterior mitral leaflet without any significant thickening or calcification. Mild MR. There is mild mitral regurgitation. Aortic Valve: The aortic valve is trileaflet. The aortic valve opens well. There is no aortic valve stenosis. No aortic regurgitation is present. Tricuspid Valve: The tricuspid valve is normal. There is mild tricuspid regurgitation. Right ventricular systolic pressure is estimated to be 24 mmHg plus the clinically estimated CVP which cannot be estimated on this exam. Compared to the prior echo exam, there has been no change in TR severity. Pulmonic Valve: The pulmonic valve is not well seen, but is grossly normal. There is no pulmonic valvular regurgitation. Great Vessels: The aortic root is normal size. The ascending aorta could not be visualized. The aortic arch is mildly enlarged. The inferior vena cava was not well visualized. Pericardium/ Pleura There is no pericardial effusion. There is no pleural effusion. MMode/2D Measurements & Calculations LVIDd: 4.1 cm LVOT diam: 2.0 cm LVIDs: 2.5 cm Ao root diam: 3.6 cm FS: 38.4 % Ao Arch Diam (Prox Trans): 3.8 cm IVSd: 1.0 cm LVPWd: 1.0 cm LV martin. diameter/BSA (cm/m^2): 2.1 LV sys. diameter/BSA (cm/m^2): 1.3 LA A2 area: 21.4 cm2 RA long axis: 4.7 cm LA A4 area: 20.0 cm2 RA area: 15.1 cm2 LA length (vol): 5.4 cm RA vol: 41.1 ml LA vol: 67.3 ml RA : 20.7 ml/m2 LA vol index: 34.0 ml/m2 RVD1 (basal): 3.7 cm TAPSE: 1.9 cm Doppler Measurements & Calculations Ao V2 max: 94.0 cm/sec LVOT Max Papa: 86.4 cm/sec Ao V2 mean: 71.7 cm/sec LV V1 max P.0 mmHg Ao max P.5 mmHg LV V1 VTI: 20.2 cm Ao mean P.2 mmHg BRISEIDA(I,D): 3.3 cm2 Ao V2 VTI: 20.2 cm BRISEIDA(V,D): 3.0 cm2 sev ratio: 1.0 BRISEIDA indexed to BSA (cm^2/m^2): 1.7 MV E max papa: 50.6 cm/sec TR max papa: 245.2 cm/sec MV A max papa: 72.3 cm/sec TR max P.1 mmHg MV E/A: 0.70 PA V2 max: 59.6 cm/sec Med Peak E' Papa: 5.4 cm/sec PA V2 mean: 42.3 cm/sec E/E' med: 9.3 PA mean P.78 mmHg Lat Peak E' Papa: 7.9 cm/sec PA pr(Accel): 44.7 mmHg E/E' lat: 6.4 E/e' average: 7.8 MV dec time: 0.33 sec SV(LVOT): 66.6 ml Reading Physician:05:46 PM
== END ==
PROVIDERS: PCP Registered Nurse Diabetes Educator; Referring Provider Internal Medicine Cardiovascular Disease; Visit Provider Internal Medicine Cardiovascular Disease
DX: I08.1 Rheumatic disorders of both mitral and tricuspid valves (principal); I77.89 Other specified disorders of arteries and arterioles
CPT/HCPCS: 93306

== ENCOUNTER 2021-04-17 12:40 | Emergency (ER) | payer MEDICARE, SELFPAY ==
[2021-04-17] VITALS (9 sets, daily range): BP systolic 165–191; BP diastolic 76–91; PULSE 85–98; RESP 14–28; TEMP 36.5; O2SAT 94–98; BMI 31.4
[2021-04-17 12:59] LABS: Add Manual Diff / Slide Review NO; Basophils Absolute Auto 0 /uL (0-100); Basophils Percent Auto 0.6 % (0-2); Eosinophils Absolute Auto 100 /uL (0-450); Eosinophils Percent Auto 1.7 % (2-4); Hematocrit 44.3 % (36-46); Hemoglobin 14.6 g/dL (12.0-16.0); Lymphocytes Absolute Auto 2500 /uL (1100-4500); Lymphocytes Percent Auto 30.8 % (25-40); Mean Corpuscular Hemoglobin 28.6 PG (26-34); Mean Corpuscular Volume 86.5 fL (80-100); Monocytes Absolute Auto 500 /uL (0-900); Monocytes Percent Auto 5.8 % (3-14); Neutrophils Absolute Auto 4900 /uL (1500-7000); Neutrophils Percent Auto 61.1 % (50-75); Platelet Count 251 X10^3/uL (150-400); Red Blood Cell Count 5.12 X10^6/uL (4.0-5.2)
--- NOTE | 2021-04-17 13:09 | ED.WEAKNESS ---
HPI - Weakness <Esvin Grullon PA-C - Last Filed: 04/17/21 20:59> General Chief complaint: Weakness Stated complaint: Dizzy/weak Time Seen by Provider: 04/17/21 12:51 Source: patient Mode of arrival: EMS Limitations: no limitations History of Present Illness HPI Narrative: [place] presents today with chief complaint sensation of disequilibrium dizziness that started this morning after she got out of bed. She reports that she was feeling fine while she was laying in bed this morning after waking up but experience dizziness upon standing to go to the bathroom. She reported that it feel like she had too much to drink. However, she has not had anything to drink. This improved with laying back down. However, each time she has gotten up this morning she has experienced the same symptoms. She reports that the symptoms usually only last for less than a minute but are reproducible by position changes. She reports associated nausea during the times of dizziness but denies any vomiting. She denies any vision changes, headache, chest pain, palpitations, abdominal pain, diarrhea, constipation or any other acute concerns or complaints at this time. She has been tolerating oral intake and staying well hydrated. She reports that she typically drinks 64 oz of water daily. Related Data Home Medications Medication Instructions Recorded Confirmed cetirizine 10 mg capsule (Zyrtec) 10 mg PO DAILY cap 01/05/18 01/01/21 cholecalciferol (vitamin D3) 125 5,000 unit PO DAILY 05/06/18 01/01/21 mcg (5,000 unit) capsule magnesium 250 mg tablet 500 mg PO DAILY 08/08/19 01/01/21 melatonin 3 mg tablet 3 mg PO BEDTIME 08/08/19 01/01/21 Previous Rx's Medication Instructions Recorded blood sugar diagnostic (FreeStyle #100 each 01/05/18 Test) ketoconazole 2 % topical cream 1 applictn TOP BID #60 gram 01/24/20 diazepam 10 mg tablet (Valium) 10 mg PO HS PRN #5 tab 12/10/20 diltiazem HCl 120 mg 120 mg PO DAILY #90 cap 01/01/21 capsule,extended release 24 hr metformin 500 mg tablet,extended 500 mg PO BID #180 tab 01/01/21 release 24 hr metoprolol succinate 50 mg 50 mg PO BID #180 tab 01/01/21 tablet,extended release 24 hr meclizine 25 mg tablet 25 mg PO DAILY PRN #20 tab 04/17/21 Allergies Allergy/AdvReac Type Severity Reaction Status Date / Time fluticasone [From Flonase] Allergy Severe lip/mouth Verified 04/17/21 12:50 swelling from generic Influenza Virus Vaccines Allergy Intermediate Arm Verified 04/17/21 12:50 swelling, admitted to [facility] for few days simvastatin AdvReac Intermediate Severe Verified 04/17/21 12:50 muscle weekness and pain Review of Systems <Esvin Grullon PA-C - Last Filed: 04/17/21 20:59> Review of Systems Narrative: As per HPI Patient History <Esvin Grullon PA-C - Last Filed: 04/17/21 20:59> Medical History Allergic rhinitis (Unknown) Diabetes (Unknown) Diabetes type 2, controlled Dyslipidemia Hyperlipemia (Unknown) Hypertension (Unknown) Left-sided tinnitus (Unknown) Microalbuminuria SVT (supraventricular tachycardia) (2013) Surgical History Cataract extraction status of left eye History of carpal tunnel release (05/2013) Hx of hysterectomy (Unknown) Hx of tonsillectomy (Unknown) Family History Father No problems noted. Mother No problems noted. Social History household members: none Smoking Status: Former smoker Tobacco: How many years used: 30 alcohol intake: never Smoking Status: Former smoker alcohol intake frequency: holidays/special occasions only Substance Use Type: does not use Exam <Esvin Grullon PA-C - Last Filed: 04/17/21 20:59> Narrative Exam Narrative: Exam Narrative: Const General: cooperative, healthy appearing, comfortable, no acute distress, well developed and well groomed Nutritional Appearance: average body habitus Orientation: alert and oriented x3 HENMT Head: normal to inspection and atraumatic Ears: hearing grossly normal bilaterally, TMs normal bilaterally, EACs normal bilaterally Nose: external nose normal and nares normal Face and sinus: normal facial exam, no sinus tenderness Neck Neck: normal visual inspection and supple Resp Effort & Inspection: normal respiratory effort, able to speak in complete sentences, no audible wheezes, not labored, no nasal flaring and no respiratory distress, clear to auscultation bilaterally Cardiac Regular rate, regular rhythm, no discernible murmurs, rubs or gallops. GI Normal bowel sounds, normal to inspection, nondistended, no masses noted with palpation Neuro General: alert, oriented x3, gait normal, tone normal and moves all extremities, cranial nerves 2-12 grossly intact, normal rapid alternating movement of upper extremities, normal [id number] Cognition: normal cognition Speech: speech normal Psych Appearance: grossly normal and well kempt Mental Status: mental status grossly normal Speech and Movement: speech and movement normal Mood: congruent mood Affect: normal affect Initial Vital Signs Initial Vital Signs: Vital Signs Temperature 97.7 F 04/17/21 12:45 Pulse Rate 96 H 04/17/21 12:45 Respiratory Rate 14 04/17/21 12:45 Blood Pressure 190/86 H 04/17/21 12:45 Pulse Oximetry 96 04/17/21 12:45 <Marlys Campos MD - Last Filed: 04/24/21 07:24> Initial Vital Signs Initial Vital Signs: Vital Signs Temperature 97.7 F 04/17/21 12:45 Pulse Rate 96 H 04/17/21 12:45 Respiratory Rate 14 04/17/21 12:45 Blood Pressure 190/86 H 04/17/21 12:45 Pulse Oximetry 96 04/17/21 12:45 Course <Esvin Grullon PA-C - Last Filed: 04/17/21 20:59> Orders Ordered: Discontinued Medications Sodium Chloride (Normal Saline 0.9%) 500 mls @ 1,000 mls/hr IV BOLUS ONE Stop: 04/17/21 13:45 Last Infusion: 04/17/21 14:25 Dose: 0 mls/hr Documented by: Admin: 04/17/21 13:20 Dose: 1,000 mls/hr Documented by: KIT Meclizine HCl (Meclizine Hcl 12.5 Mg Tablet) 25 mg PO NOW ONE Stop: 04/17/21 13:14 Last Admin: 04/17/21 13:19 Dose: 25 mg Documented by: KIT Vital Signs Vital signs: Vital Signs - 8 hr 04/17/21 13:00 04/17/21 13:08 04/17/21 13:30 Pulse Rate 90 90 85 Pulse Rate [Orthostatic Lying] Pulse Rate [Orthostatic Sitting] Pulse Rate [Orthostatic Standing] Respiratory Rate 28 H 26 H 21 Blood Pressure 180/79 H 180/88 H Blood Pressure [Orthostatic Lying] Blood Pressure [Orthostatic Sitting] Blood Pressure [Orthostatic Standing] Pulse Oximetry 96 97 96 04/17/21 14:00 04/17/21 14:02 04/17/21 14:11 Pulse Rate 92 H 97 H Pulse Rate [Orthostatic Lying] 91 H Pulse Rate [Orthostatic Sitting] 95 H Pulse Rate [Orthostatic Standing] 98 H Respiratory Rate 15 15 Blood Pressure 165/76 H Blood Pressure [Orthostatic Lying] 165/76 H Blood Pressure [Orthostatic Sitting] 191/91 H Blood Pressure [Orthostatic Standing] 172/84 H Pulse Oximetry 98 96 04/17/21 14:30 04/17/21 15:22 Pulse Rate 91 H Pulse Rate [Orthostatic Lying] Pulse Rate [Orthostatic Sitting] Pulse Rate [Orthostatic Standing] Respiratory Rate Blood Pressure 181/81 H 186/89 H Blood Pressure [Orthostatic Lying] Blood Pressure [Orthostatic Sitting] Blood Pressure [Orthostatic Standing] Pulse Oximetry 94 <Marlys Campos MD - Last Filed: 04/24/21 07:24> Orders Ordered: Discontinued Medications Sodium Chloride (Normal Saline 0.9%) 500 mls @ 1,000 mls/hr IV BOLUS ONE Stop: 04/17/21 13:45 Last Infusion: 04/17/21 14:25 Dose: 0 mls/hr Documented by: Admin: 04/17/21 13:20 Dose: 1,000 mls/hr Documented by: KIT Meclizine HCl (Meclizine Hcl 12.5 Mg Tablet) 25 mg PO NOW ONE Stop: 04/17/21 13:14 Last Admin: 04/17/21 13:19 Dose: 25 mg Documented by: KIT Vital Signs Vital signs: Vital Signs - 8 hr 04/17/21 13:00 04/17/21 13:08 04/17/21 13:30 Pulse Rate 90 90 85 Pulse Rate [Orthostatic Lying] Pulse Rate [Orthostatic Sitting] Pulse Rate [Orthostatic Standing] Respiratory Rate 28 H 26 H 21 Blood Pressure 180/79 H 180/88 H Blood Pressure [Orthostatic Lying] Blood Pressure [Orthostatic Sitting] Blood Pressure [Orthostatic Standing] Pulse Oximetry 96 97 96 04/17/21 14:00 04/17/21 14:02 04/17/21 14:11 Pulse Rate 92 H 97 H Pulse Rate [Orthostatic Lying] 91 H Pulse Rate [Orthostatic Sitting] 95 H Pulse Rate [Orthostatic Standing] 98 H Respiratory Rate 15 15 Blood Pressure 165/76 H Blood Pressure [Orthostatic Lying] 165/76 H Blood Pressure [Orthostatic Sitting] 191/91 H Blood Pressure [Orthostatic Standing] 172/84 H Pulse Oximetry 98 96 04/17/21 14:30 04/17/21 15:22 Pulse Rate 91 H Pulse Rate [Orthostatic Lying] Pulse Rate [Orthostatic Sitting] Pulse Rate [Orthostatic Standing] Respiratory Rate Blood Pressure 181/81 H 186/89 H Blood Pressure [Orthostatic Lying] Blood Pressure [Orthostatic Sitting] Blood Pressure [Orthostatic Standing] Pulse Oximetry 94 MDM - Weakness <Esvin Grullon PA-C - Last Filed: 04/17/21 20:59> Lab Data Result diagrams: 04/17/21 12:44 04/17/21 12:44 Labs: Lab Results 04/17/21 04/17/21 04/17/21 Range/Units 12:44 12:44 13:03 WBC 8.0 (4.5-11.0) X10^3/uL RBC 5.12 (4.0-5.2) X10^6/uL Hgb 14.6 (12.0-16.0) g/dL Hct 44.3 (36-46) % MCV 86.5 (80-100) fL MCH 28.6 (26-34) PG MCHC 33.0 (30-36) % RDW 14.0 (11.6-14.8) % Plt Count 251 (150-400) X10^3/uL Neut % (Auto) 61.1 (50-75) % Lymph % (Auto) 30.8 (25-40) % [place] % (Auto) 5.8 (3-14) % Eos % (Auto) 1.7 L (2-4) % Baso % (Auto) 0.6 (0-2) % Neut # (Auto) 4900 (3769-3022) /uL Lymph # (Auto) 2500 (2769-2055) /uL [place] # (Auto) 500 (0-900) /uL Eos # (Auto) 100 (0-450) /uL Baso # (Auto) 0 (0-100) /uL Sodium 137 (137-145) mmol/L Potassium 4.1 (3.4-5.1) mmol/L Chloride 99 (98-107) mmol/L Carbon Dioxide 30 (22-32) mmol/L BUN 14 (7-17) mg/dL Creatinine 0.64 (0.52-1.04) mg/dL Estimated GFR > 60.0 (>60) mL/min BUN/Creatinine Ratio 21.9 (6-22) Glucose 254 H (80-110) mg/dL Calcium 9.8 (8.4-10.2) mg/dL Total Bilirubin 0.6 (0.2-1.3) mg/dL AST 32 (14-36) IU/L ALT 33 (<35) IU/L Alkaline Phosphatase 57 (38-126) U/L Total Creatine Kinase 68 (30-135) U/L CK-MB (CK-2) TNP CK-MB (CK-2) Rel Index TNP Troponin I < 0.012 (0.01-0.034) ng/mL Total Protein 7.6 (6.3-8.2) g/dL Albumin 4.5 (3.5-5.0) g/dL Globulin 3.1 (1.7-4.1) g/dL Albumin/Globulin Ratio 1.5 (1.0-2.8) Urine Color Urine Appearance Urine pH (4.5-8.0) Ur Specific [place] (1.000-1.035) Urine Protein (Negative) Urine Glucose (UA) (Negative) g/dL Urine Ketones (NEGATIVE) Urine Occult Blood (Negative) Urine Nitrate (Negative) Urine Bilirubin (NEGATIVE) Urine Urobilinogen (0.2) E.U./dL Ur Leukocyte Esterase (NEGATIVE) Urine RBC (0-5/HPF) Urine WBC (0-5/HPF) Urine Bacteria (None) Ur Culture Indicated? SARS-CoV-2 (PCR) Negative (Negative) 04/17/21 Range/Units 14:15 WBC (4.5-11.0) X10^3/uL RBC (4.0-5.2) X10^6/uL Hgb (12.0-16.0) g/dL Hct (36-46) % MCV (80-100) fL MCH (26-34) PG MCHC (30-36) % RDW (11.6-14.8) % Plt Count (150-400) X10^3/uL Neut % (Auto) (50-75) % Lymph % (Auto) (25-40) % [place] % (Auto) (3-14) % Eos % (Auto) (2-4) % Baso % (Auto) (0-2) % Neut # (Auto) (4034-0129) /uL Lymph # (Auto) (0223-0945) /uL [place] # (Auto) (0-900) /uL Eos # (Auto) (0-450) /uL Baso # (Auto) (0-100) /uL Sodium (137-145) mmol/L Potassium (3.4-5.1) mmol/L Chloride (98-107) mmol/L Carbon Dioxide (22-32) mmol/L BUN (7-17) mg/dL Creatinine (0.52-1.04) mg/dL Estimated GFR (>60) mL/min BUN/Creatinine Ratio (6-22) Glucose (80-110) mg/dL Calcium (8.4-10.2) mg/dL Total Bilirubin (0.2-1.3) mg/dL AST (14-36) IU/L ALT (<35) IU/L Alkaline Phosphatase (38-126) U/L Total Creatine Kinase (30-135) U/L CK-MB (CK-2) CK-MB (CK-2) Rel Index Troponin I (0.01-0.034) ng/mL Total Protein (6.3-8.2) g/dL Albumin (3.5-5.0) g/dL Globulin (1.7-4.1) g/dL Albumin/Globulin Ratio (1.0-2.8) Urine Color Yellow Urine Appearance Clear Urine pH 6.0 (4.5-8.0) Ur Specific [place] 1.010 (1.000-1.035) Urine Protein Negative (Negative) Urine Glucose (UA) 1+ H (Negative) g/dL Urine Ketones Negative (NEGATIVE) Urine Occult Blood Trace-lysed (Negative) Urine Nitrate Negative (Negative) Urine Bilirubin Negative (NEGATIVE) Urine Urobilinogen 0.2 (0.2) E.U./dL Ur Leukocyte Esterase Negative (NEGATIVE) Urine RBC 0-1/hpf (0-5/HPF) Urine WBC 0-1/hpf (0-5/HPF) Urine Bacteria Occasional (0-1) D (None) Ur Culture Indicated? Cult not indicated SARS-CoV-2 (PCR) (Negative) MDM Narrative Medical decision making narrative: Patient is well-appearing at this time and has had improvement of her symptoms here in the emergency department. Her symptoms of are convincing for BPPV. Vertiginous symptoms are not constant and are provoked by the of movement of the head to the left. They self resolve on their own after a short period of time. She does not have any obvious focal neuro deficits. EKG and cardiac evaluation does not suggest acute ischemia. She has hypertension but no obvious evidence of end-organ damage. No other acute abnormalities noted at this time. Treat for BPPV with strict ER return precautions if symptoms fail to improve as expected. Patient verbalizes understanding and agrees to plan and has no further concerns at this time. Thank you A [id number] system was used with the dictation of this note. Please disregard any spelling or grammatical errors. <Marlys Campos MD - Last Filed: 04/24/21 07:24> Lab Data Labs: Lab Results 04/17/21 04/17/21 04/17/21 Range/Units 12:44 12:44 13:03 WBC 8.0 (4.5-11.0) X10^3/uL RBC 5.12 (4.0-5.2) X10^6/uL Hgb 14.6 (12.0-16.0) g/dL Hct 44.3 (36-46) % MCV 86.5 (80-100) fL MCH 28.6 (26-34) PG MCHC 33.0 (30-36) % RDW 14.0 (11.6-14.8) % Plt Count 251 (150-400) X10^3/uL Neut % (Auto) 61.1 (50-75) % Lymph % (Auto) 30.8 (25-40) % [place] % (Auto) 5.8 (3-14) % Eos % (Auto) 1.7 L (2-4) % Baso % (Auto) 0.6 (0-2) % Neut # (Auto) 4900 (5386-4161) /uL Lymph # (Auto) 2500 (9707-0045) /uL [place] # (Auto) 500 (0-900) /uL Eos # (Auto) 100 (0-450) /uL Baso # (Auto) 0 (0-100) /uL Sodium 137 (137-145) mmol/L Potassium 4.1 (3.4-5.1) mmol/L Chloride 99 (98-107) mmol/L Carbon Dioxide 30 (22-32) mmol/L BUN 14 (7-17) mg/dL Creatinine 0.64 (0.52-1.04) mg/dL Estimated GFR > 60.0 (>60) mL/min BUN/Creatinine Ratio 21.9 (6-22) Glucose 254 H (80-110) mg/dL Calcium 9.8 (8.4-10.2) mg/dL Total Bilirubin 0.6 (0.2-1.3) mg/dL AST 32 (14-36) IU/L ALT 33 (<35) IU/L Alkaline Phosphatase 57 (38-126) U/L Total Creatine Kinase 68 (30-135) U/L CK-MB (CK-2) TNP CK-MB (CK-2) Rel Index TNP Troponin I < 0.012 (0.01-0.034) ng/mL Total Protein 7.6 (6.3-8.2) g/dL Albumin 4.5 (3.5-5.0) g/dL Globulin 3.1 (1.7-4.1) g/dL Albumin/Globulin Ratio 1.5 (1.0-2.8) Urine Color Urine Appearance Urine pH (4.5-8.0) Ur Specific [place] (1.000-1.035) Urine Protein (Negative) Urine Glucose (UA) (Negative) g/dL Urine Ketones (NEGATIVE) Urine Occult Blood (Negative) Urine Nitrate (Negative) Urine Bilirubin (NEGATIVE) Urine Urobilinogen (0.2) E.U./dL Ur Leukocyte Esterase (NEGATIVE) Urine RBC (0-5/HPF) Urine WBC (0-5/HPF) Urine Bacteria (None) Ur Culture Indicated? SARS-CoV-2 (PCR) Negative (Negative) 04/17/21 Range/Units 14:15 WBC (4.5-11.0) X10^3/uL RBC (4.0-5.2) X10^6/uL Hgb (12.0-16.0) g/dL Hct (36-46) % MCV (80-100) fL MCH (26-34) PG MCHC (30-36) % RDW (11.6-14.8) % Plt Count (150-400) X10^3/uL Neut % (Auto) (50-75) % Lymph % (Auto) (25-40) % [place] % (Auto) (3-14) % Eos % (Auto) (2-4) % Baso % (Auto) (0-2) % Neut # (Auto) (7860-0253) /uL Lymph # (Auto) (7787-0023) /uL [place] # (Auto) (0-900) /uL Eos # (Auto) (0-450) /uL Baso # (Auto) (0-100) /uL Sodium (137-145) mmol/L Potassium (3.4-5.1) mmol/L Chloride (98-107) mmol/L Carbon Dioxide (22-32) mmol/L BUN (7-17) mg/dL Creatinine (0.52-1.04) mg/dL Estimated GFR (>60) mL/min BUN/Creatinine Ratio (6-22) Glucose (80-110) mg/dL Calcium (8.4-10.2) mg/dL Total Bilirubin (0.2-1.3) mg/dL AST (14-36) IU/L ALT (<35) IU/L Alkaline Phosphatase (38-126) U/L Total Creatine Kinase (30-135) U/L CK-MB (CK-2) CK-MB (CK-2) Rel Index Troponin I (0.01-0.034) ng/mL Total Protein (6.3-8.2) g/dL Albumin (3.5-5.0) g/dL Globulin (1.7-4.1) g/dL Albumin/Globulin Ratio (1.0-2.8) Urine Color Yellow Urine Appearance Clear Urine pH 6.0 (4.5-8.0) Ur Specific [place] 1.010 (1.000-1.035) Urine Protein Negative (Negative) Urine Glucose (UA) 1+ H (Negative) g/dL Urine Ketones Negative (NEGATIVE) Urine Occult Blood Trace-lysed (Negative) Urine Nitrate Negative (Negative) Urine Bilirubin Negative (NEGATIVE) Urine Urobilinogen 0.2 (0.2) E.U./dL Ur Leukocyte Esterase Negative (NEGATIVE) Urine RBC 0-1/hpf (0-5/HPF) Urine WBC 0-1/hpf (0-5/HPF) Urine Bacteria Occasional (0-1) D (None) Ur Culture Indicated? Cult not indicated SARS-CoV-2 (PCR) (Negative) Discharge Plan Departure Patient Disposition: Home Clinical Impression: Benign paroxysmal positional vertigo Qualifiers: Laterality: left Qualified Code(s): H81.12 - Benign paroxysmal vertigo, left ear Instructions: Benign Paroxysmal Positional Vertigo Activity Restrictions/Additional Instructions: It was very nice to meet you this afternoon. Your examination has been reassuring. I am glad you are starting to feel better. Please use the medications and perform the maneuver that we discussed to help with your symptoms. I also recommend contacting your PCP either today or tomorrow to schedule a follow-up appointment. Please return to the emergency department if you experience persistent vertigo, headache, vision changes, fever, chest pain or have any other acute concerns or complaints. Thank you Esvin Grullon PA-C Prescriptions: New meclizine 25 mg tablet 25 mg PO DAILY PRN (Reason: dizziness) Qty: 20 RF: 0 No Action cetirizine [Zyrtec] 10 mg capsule 10 mg PO DAILY RF: 0 (DME) blood sugar diagnostic [FreeStyle Test] strip See Dose Instructions .ROUTE .MEDSUPPLY Qty: 100 RF: 0 cholecalciferol (vitamin D3) 5,000 unit capsule 5,000 unit PO DAILY RF: 0 diazepam [Valium] 10 mg tablet 10 mg PO HS PRN (Reason: flying ) Qty: 5 RF: 0 ketoconazole 2 % cream 1 applictn TOP BID Qty: 60 RF: 2 diltiazem HCl 120 mg capsule,extended release 24hr 120 mg PO DAILY Qty: 90 RF: 2 metformin 500 mg tablet extended release 24 hr 500 mg PO BID Qty: 180 RF: 2 metoprolol succinate 50 mg tablet extended release 24 hr 50 mg PO BID Qty: 180 RF: 2 melatonin 3 mg Tablet 3 mg PO BEDTIME RF: 0 magnesium 250 mg Tablet 500 mg PO DAILY RF: 0 Referrals: Leeroy Oropeza ARNP [Primary Care Provider] - <Marlys Campos MD - Last Filed: 04/24/21 07:24> Cosign ED Attending Cosignature Attestation: I was immediately available in the department for consultation throughout this patient's visit. I agree with documentation as above. Marlys Campos MD
[2021-04-17 13:11] LABS: Alanine Aminotransferase 33 IU/L (<35); Albumin 4.5 g/dL (3.5-5.0); Albumin Globulin Ratio 1.5 (1.0-2.8); Alkaline Phosphatase 57 U/L (38-126); Aspartate Aminotransferase 32 IU/L (14-36); BUN Creatinine Ratio 21.9 (6-22); Bilirubin Total 0.6 mg/dL (0.2-1.3); Blood Urea Nitrogen 14 mg/dL (7-17); Calcium 9.8 mg/dL (8.4-10.2); Carbon Dioxide 30 mmol/L (22-32); Chloride 99 mmol/L (98-107); Creatine Kinase 68 U/L (30-135); Estimated Glomerular Filt Rate > 60.0 mL/min (>60); Globulin 3.1 g/dL (1.7-4.1); Glucose 254 mg/dL (80-110); HEMOLYSIS < 15 (0-50); Potassium 4.1 mmol/L (3.4-5.1); Sodium 137 mmol/L (137-145); Total Protein 7.6 g/dL (6.3-8.2)
[2021-04-17] MEDS: MECLIZINE HCL 12.5 MG TABLET 25 MG PO (13:19)
[2021-04-17] MEDS: SODIUM CHLORIDE 0.9% 500 ML 1000 ML IV (13:20)
[2021-04-17 13:22] LABS: Troponin I < 0.012 ng/mL (0.01-0.034)
[2021-04-17 14:07] LABS: COVID19 -Nasal RAPID Negative (Negative)
[2021-04-17 14:20] LABS: Appearance Urine UA CLEAR; Bilirubin Urine UA NEGATIVE (NEGATIVE); Color Urine UA YELLOW; Glucose Urine UA 1+ g/dL (Negative); Ketones Urine UA NEGATIVE (NEGATIVE); Leukocyte Esterase Urine UA NEGATIVE (NEGATIVE); Nitrite Urine UA NEGATIVE (Negative); Occult Blood Urine UA TRACE-LYSED (Negative); Protein Urine UA NEGATIVE (Negative); Urobilinogen Urine UA 0.2 E.U./dL (0.2)
[2021-04-17 14:31] LABS: Bacteria Urine Occasional (0-1); Culture Indicated Urine Cult Not Indicated; RBC Urine 0-1/HPF (0-5/HPF); WBC Urine 0-1/HPF (0-5/HPF)
== END 2021-04-17 15:30 | disposition home or self-care (01) ==
PROVIDERS: Emergency Provider Physician Assistant; PCP Registered Nurse Diabetes Educator
DX: H81.12 Benign paroxysmal vertigo, left ear (principal); Z20.822 Contact with and (suspected) exposure to COVID-19
CPT/HCPCS: 36415; 80053; 81001; 82550; 84484; 85025; 87635; 93005; 99284; C9803

== ENCOUNTER → 2021-06-13 09:42 | Outpatient (CLI) | payer MEDICARE, SELFPAY ==
[2021-06-13 10:52] LABS: Hematocrit 42.2 % (36-46); Hemoglobin 14.4 g/dL (12.0-16.0); Mean Corpuscular Hemoglobin 29.4 PG (26-34); Mean Corpuscular Volume 86.3 fL (80-100); Platelet Count 234 X10^3/uL (150-400); Red Cell Distribution Width 13.6 % (11.6-14.8); White Blood Cell Count 6.1 X10^3/uL (4.5-11.0)
[2021-06-13 10:57] LABS: Hemoglobin A1C% w Est Avg Glu 7.6 % (4.0-6.0)
[2021-06-13 11:03] LABS: Alanine Aminotransferase 34 IU/L (<35); Albumin 4.3 g/dL (3.5-5.0); Albumin Globulin Ratio 1.5 (1.0-2.8); Alkaline Phosphatase 54 U/L (38-126); Aspartate Aminotransferase 31 IU/L (14-36); BUN Creatinine Ratio 18.5 (6-22); Bilirubin Total 0.7 mg/dL (0.2-1.3); Blood Urea Nitrogen 12 mg/dL (7-17); Calcium 9.9 mg/dL (8.4-10.2); Carbon Dioxide 32 mmol/L (22-32); Chloride 98 mmol/L (98-107); Cholesterol 200 mg/dL (140-199); Estimated Glomerular Filt Rate > 60.0 mL/min (>60); Globulin 2.9 g/dL (1.7-4.1); Glucose 178 mg/dL (80-110); HDL Cholesterol 58 mg/dL (40-60); HEMOLYSIS < 15 (0-50); LDL Cholesterol Calculated 99 mg/dL (<100); Magnesium 1.5 mg/dL (1.6-2.3); Potassium 4.6 mmol/L (3.4-5.1); Sodium 138 mmol/L (137-145); Total Protein 7.2 g/dL (6.3-8.2); Triglycerides 217 mg/dL (35-150)
[2021-06-13 11:34] LABS: TSH w/ Reflex to FT4 1.43 uIU/mL (0.47-4.68)
[2021-06-13 13:30] LABS: Creatinine Urine Random 52.1 mg/dL
[2021-06-13 13:43] LABS: Microalbumi Creatinin Ratio Ur 84.4 ug/mg CR (<30); Microalbumin Urine Random 4.4 mg/dL (0-1.6)
== END ==
PROVIDERS: PCP Registered Nurse Diabetes Educator; Referring Provider Registered Nurse Diabetes Educator; Visit Provider Registered Nurse Diabetes Educator
DX: E11.9 Type 2 diabetes mellitus without complications (principal); I10 Essential (primary) hypertension; E78.5 Hyperlipidemia, unspecified; R80.9 Proteinuria, unspecified; E61.2 Magnesium deficiency
CPT/HCPCS: 36415; 80053; 80061; 82043; 82570; 83036; 83735; 84443; 85027

== ENCOUNTER 2021-11-09 21:18 | Emergency (ER) | payer MEDICARE, SELFPAY ==
[2021-11-09 21:24] VITALS: PULSE 95; RESP 24; TEMP 36.7; O2SAT 96
--- NOTE | 2021-11-09 21:27 | ED.ABDPAIN ---
HPI - Abdominal Pain General Chief Complaint: Chest Pain Stated Complaint: Woke up with cramps, N/D, pain in lt upper back Time Seen by Provider: 11/09/21 21:25 Source: patient Mode of arrival: Ambulatory History of Present Illness HPI narrative: 76-year-old female with history of tachyarrhythmia and diabetes presents with a chief complaint of some generalized abdominal cramping and a few episodes of diarrhea over the course of the day. She is not dizzy nor weak or lightheaded. She has had no fever or chills. Though nauseous she has had no vomiting. She is not currently having pain. She denies any chest pain, cough or shortness of breath. Along with her abdominal cramping nausea, and diarrhea she has developed some left upper back pain. This back pain the is absent of any obvious provocation, palliation or radiation. She denies any history of the same. She denies any overuse or recent injury. Related Data Home Medications Medication Instructions Recorded Confirmed cetirizine 10 mg capsule (Zyrtec) 10 mg PO DAILY cap 01/05/18 09/23/21 cholecalciferol (vitamin D3) 125 5,000 unit PO DAILY 05/06/18 09/23/21 mcg (5,000 unit) capsule magnesium 250 mg tablet 500 mg PO DAILY 08/08/19 09/23/21 melatonin 3 mg tablet 3 mg PO BEDTIME 08/08/19 09/23/21 apixaban 5 mg tablet (Eliquis) 5 mg PO BID 07/17/21 09/23/21 Previous Rx's Medication Instructions Recorded blood sugar diagnostic (FreeStyle #100 each 01/05/18 Test) ketoconazole 2 % topical cream 1 applictn TOP BID #60 gram 01/24/20 meclizine 25 mg tablet 25 mg PO DAILY PRN #20 tab 04/17/21 diazepam 10 mg tablet (Valium) 10 mg PO DAILY PRN #5 tab 06/17/21 diltiazem HCl 120 mg 120 mg PO DAILY #90 cap 06/17/21 capsule,extended release 24 hr metformin 500 mg tablet,extended 500 mg PO BID #180 tab 06/17/21 release 24 hr metoprolol succinate 50 mg 50 mg PO BID #180 tab 06/17/21 tablet,extended release 24 hr varicella-zoster glycoE [id number] 0.5 ml IM ONCE #1 ea 06/17/21 adj(PF) 50 mcg/0.5 mL IM susp, kit (Shingrix (PF)) apixaban 5 mg tablet (Eliquis) 5 mg PO BID #60 tab 07/17/21 Allergies Allergy/AdvReac Type Severity Reaction Status Date / Time fluticasone [From Flonase] Allergy Severe lip/mouth Verified 09/23/21 13:18 swelling from generic Influenza Virus Vaccines Allergy Intermediate Arm Verified 09/23/21 13:18 swelling, [facility] sim[facility]atin AdvReac Intermediate Severe Verified 09/23/21 13:18 muscle weekness and pain Review of Systems Review of Systems Narrative: GENERAL: Denies chills, fatigue, malaise, fever, sweats. HEENT: Denies sinus pain, ear pain, sore throat, difficulty swallowing, dizziness. RESPIRATORY: Denies dyspnea, cough, wheezing, hemoptysis, sputum. CARDIOVASCULAR: See HPI GASTROINTESTINAL: See HPI : Denies dysuria, frequency, incontinence, hematuria, urinary retention. MUSCULOSKELETAL: See HPI SKIN: Denies rash, skin lesions, or other NEUROLOGIC: Denies weakness, headache, numbness, change in speech, confusion, seizures, incoordination. PSYCHIATRIC: No concerning psychosocial issues. 12 point review of systems is negative except for those stated above Patient History Medical History Allergic rhinitis (Unknown) Allergic rhinitis Diabetes (Unknown) Diabetes type 2, controlled Dyslipidemia Hyperlipemia (Unknown) Hypertension (Unknown) Left-sided tinnitus (Unknown) Microalbuminuria SVT (supraventricular tachycardia) (2013) Surgical History Cataract extraction status of left eye History of carpal tunnel release (05/2013) Hx of hysterectomy (Unknown) Hx of tonsillectomy (Unknown) Family History Father No problems noted. Mother No problems noted. Social History household members: none Smoking Status: Former smoker Tobacco: How many years used: 30 alcohol intake: never Smoking Status: Former smoker alcohol intake frequency: holidays/special occasions only Substance Use Type: does not use Exam Narrative Exam Narrative: GENERAL: [76 year old patient appears stated age. Well-developed patient, in mild distress. HEAD: Atraumatic. Normocephalic. EYES: Pupils equal round and reactive. Extraocular motions intact. No scleral icterus. No injection or drainage. ENT: Nose without bleeding, purulent drainage. Throat without erythema, tonsillar hypertrophy or exudate. Airway patent. NECK: Trachea midline. Non tender CARDIOVASCULAR: Regular rate and rhythm without murmurs, gallops, or rubs. RESPIRATORY: Clear to auscultation. Breath sounds equal bilaterally. No wheezes, rales, or rhonchi. GASTROINTESTINAL: Abdomen soft, non-tender, nondistended. Bowel sounds present in all 4 quadrants EXTREMITIES: No edema or joint tenderness. BACK: Nontender without deformity or crepitance. No flank tenderness. NEURO: AOx3. SKIN: No rash or erythema of visible areas Initial Vital Signs Initial Vital Signs: Vital Signs Temperature 98.1 F 11/09/21 21:24 Pulse Rate 95 H 11/09/21 21:24 Respiratory Rate 24 11/09/21 21:24 Pulse Oximetry 96 11/09/21 21:24 Course Orders Ordered: ED Orders 11/09/21 21:26 EKG-12 Lead Stat 11/09/21 21:35 XR acute abdomen series Stat 11/09/21 21:45 Complete Blood Count AUTO DIFF Stat Comprehensive Metabolic Panel Stat Lipase Stat Magnesium Stat Troponin & CK Cardiac Panel Stat 11/09/21 22:59 CT angio chest abdomen pelvis Stat Discontinued Medications Lidocaine (Lidocaine Patch 1 Each Adh..Patch) 1 each TOP NOW ONE Stop: 11/10/21 01:18 Ondansetron HCl (Ondansetron 4 Mg Odt Prepack) 1 bottle MISC SEEINSTR ONE Stop: 11/10/21 01:18 Reevaluation(s) Reevaluation #1: patient belly pain improved, she states she had an episode of numbness into her left arm that was brief and is now resolved. CTA ordered due to pain above and below diaphragm along with neuro symptoms Time: 23:03 Vital Signs Vital signs: Vital Signs - 8 hr 11/09/21 21:24 11/09/21 21:49 11/09/21 22:01 Temperature 98.1 F Pulse Rate 95 H 84 88 Respiratory Rate 24 21 23 Blood Pressure Pulse Oximetry 96 96 11/09/21 22:30 11/09/21 23:33 11/09/21 23:34 Temperature Pulse Rate 90 87 88 Respiratory Rate 23 22 Blood Pressure 179/79 H Pulse Oximetry 94 96 95 11/10/21 00:00 11/10/21 00:30 11/10/21 01:00 Temperature Pulse Rate 91 H 87 87 Respiratory Rate 23 22 22 Blood Pressure 159/82 H 143/68 H 150/72 H Pulse Oximetry 93 93 93 MDM - Abdominal Pain Lab Data Result diagrams: 11/09/21 21:45 11/09/21 21:45 Labs: Lab Results 11/09/21 11/09/21 Range/Units 21:45 21:45 WBC 7.9 (4.5-11.0) X10^3/uL RBC 5.17 (4.0-5.2) X10^6/uL Hgb 15.0 (12.0-16.0) g/dL Hct 43.7 (36-46) % MCV 84.6 (80-100) fL MCH 29.0 (26-34) PG MCHC 34.3 (30-36) % RDW 13.9 (11.6-14.8) % Plt Count 243 (150-400) X10^3/uL Neut % (Auto) 53.7 (50-75) % Lymph % (Auto) 37.5 (25-40) % [place] % (Auto) 6.5 (3-14) % Eos % (Auto) 1.2 L (2-4) % Baso % (Auto) 1.1 (0-2) % Neut # (Auto) 4200 (3245-3860) /uL Lymph # (Auto) 3000 (8604-6940) /uL [place] # (Auto) 500 (0-900) /uL Eos # (Auto) 100 (0-450) /uL Baso # (Auto) 100 (0-100) /uL Sodium 140 (137-145) mmol/L Potassium 3.7 (3.4-5.1) mmol/L Chloride 103 (98-107) mmol/L Carbon Dioxide 28 (22-32) mmol/L BUN 11 (7-17) mg/dL Creatinine 0.63 (0.52-1.04) mg/dL Estimated GFR > 60 (>60) mL/min BUN/Creatinine Ratio 17.5 (6-22) Glucose 163 H (80-110) mg/dL Calcium 10.2 (8.4-10.2) mg/dL Magnesium 1.4 L (1.6-2.3) mg/dL Total Bilirubin 0.7 (0.2-1.3) mg/dL AST 41 H (14-36) IU/L ALT 45 H (<35) IU/L Alkaline Phosphatase 60 (38-126) U/L Total Creatine Kinase 64 (30-135) U/L CK-MB (CK-2) TNP CK-MB (CK-2) Rel Index TNP Troponin I < 0.012 (0.01-0.034) ng/mL Total Protein 8.4 H (6.3-8.2) g/dL Albumin 4.7 (3.5-5.0) g/dL Globulin 3.7 (1.7-4.1) g/dL Albumin/Globulin Ratio 1.3 (1.0-2.8) Lipase 176 (23-300) U/L Point of care testing: Urine Dip Bedside Urine Glucose Negative Bedside Urine Bilirubin - Negative Bedside Urine Ketone - Negative Urine Specific [place] 1.010 Bedside Urine Occult Blood - Negative Bedside Urine pH 6.0 Bedside Urine Protein - Negative Bedside Urine Urobilinogen - Negative Bedside Urine Nitrite - Negative Bedside Urine Leukocytes - Negative Esterase Imaging Data Chest x-ray: Radiologist's Impression: [address] [address] XRay Report Signed Patient: Rica Fabian MR#: [id number] : 1945 Acct:[id number] Age/Sex: 76 / F Date of Service: 11/09/21 Loc: ED Accession Number: [id number] ?? Procedure: XR acute abdomen series Ordering Provider: Jose Harper D.O. PROCEDURE:? XR ACUTE ABDOMEN SERIES ? INDICATIONS:? upper back pain and N/V/D ? TECHNIQUE:? One view chest and two views of the abdomen were acquired.? ? COMPARISON:? [facility], CR, XR ABDOMEN MIN 2V, 11/13/2018, 18:45.? [facility], CR, XR CHEST 1V, 12/25/2018, 9:45. ? FINDINGS:? ? Surgical changes and devices:? None.? ? Chest:? Lungs are clear.? There is hyperinflation of the lungs with flattening of the hemidiaphragms compatible with COPD.? Heart size is normal.? No pleural effusions.? No pneumoperitoneum.? ? Abdomen:? Bowel gas pattern appears within normal limits.? No suspicious calcifications.? ? ? Bones:? No suspicious bony lesions.? There is a mild leftward curvature of the lumbar spine with mild to moderate multilevel degenerative disc disease.? ? IMPRESSION:? ? 1. No evidence of bowel obstruction. ? ? Dictated by: Matt Andujar M.D. on 11/09/2021 at 22:33 ? ? Approved by: Matt Andujar M.D. on 11/09/2021 at 22:37 ? CT scan - chest: Radiologist's Impression: [place] [address] CT Scan Report Signed Patient: Rica Fabian MR#: [id number] : 1945 Acct:[id number] Age/Sex: 76 / F Date of Service: 11/09/21 Loc: ED Accession Number: [id number] ?? Procedure: CT angio chest abdomen pelvis Ordering Provider: Jose Harper D.O. PROCEDURE:? CT ANGIO CHEST ABDOMEN PELVIS ? INDICATIONS:? upper back pain, left arm pain/numb, abd pain, HTN ? TECHNIQUE:? Precontrast 5 mm thick sections acquired from the lung apices to the iliac crests.? After the administration of intravenous contrast, 2.5 mm thick sections again acquired from the lung apices to the iliac crests.? Maximum intensity projection (MIP) oblique sagittal and coronal reformats were then acquired.? For radiation dose reduction, the following was used:? automated exposure control.? ? COMPARISON:? None. ? FINDINGS:? Image quality:? Excellent.? ? AORTA:? Noncontrast images demonstrate no evidence of intramural hematoma.? There is ectasia of the ascending thoracic aorta which measures up to 3.8 cm.? The remainder of the aorta appears normal in caliber and contour.? No intimal flaps to suggest dissection. ?There is mild scattered atherosclerotic plaque along the course of the aorta and its branch vessels. ? There is a bovine aortic arch with common origin of the right brachiocephalic and left common carotid arteries.? The visualized great vessels are normal in caliber and appear patent.? The celiac, superior mesenteric, and inferior mesenteric arteries appear patent. ?There are single renal arteries bilaterally which appear patent.? The common, external, and internal iliac arteries appear patent bilaterally.? The common femoral and visualized proximal superficial femoral arteries also appear patent. ? CHEST:? Lungs and pleura:? No acute consolidation.? There is mild linear scarring bilaterally.? No pleural effusions or pneumothorax.? Central and peripheral airways are patent and normal in caliber.? ? Mediastinum:? Heart size is normal.? No pericardial effusion.? No mediastinal or hilar adenopathy by size criteria.? Central pulmonary arteries are normal in size.? Evaluation for pulmonary embolism is limited due to the phase of enhancement.? Esophagus is normal in caliber.? There is a small hiatal hernia. ? Bones and chest wall:? No axillary adenopathy by size criteria.? Thyroid gland is enlarged and heterogeneous with multiple ill-defined hypoattenuating nodules bilaterally. ?No suspicious bony lesions.? No vertebral body compression fractures.? ? ? ABDOMEN:? ? Solid organs:? There is diffuse hypoattenuation of the liver consistent with fatty infiltration.? Multiple hypodense foci are demonstrated within the gallbladder compatible with noncalcified gallstones.? No gallbladder wall thickening or pericholecystic fluid.? Biliary system is non-dilated.? Pancreas enhances normally.? No peripancreatic fat stranding or fluid collections.? No pancreatic duct dilatation.? The spleen is normal in size.? No adrenal nodules.? Kidneys demonstrate no hydronephrosis.? There is a nonobstructing stone within the inferior pole of the right kidney measuring up to 0.4 cm. ?Bilateral renal cysts are demonstrated as well as nonspecific perinephric stranding.? ? Peritoneum and bowel:? No free fluid or air.? Bowel loops are normal in caliber and wall thickness.? No pericecal inflammatory changes to suggest appendicitis.? There is colonic diverticulosis without acute diverticulitis.? ? Nodes and vessels:? No retroperitoneal or mesenteric adenopathy by size criteria.? Inferior vena cava is normal in morphology.? ? Miscellaneous:? No ventral hernias.? ? ? PELVIS:? Genitourinary:? Bladder wall thickness is normal.? The uterus is surgically absent. ? Miscellaneous:? No inguinal hernias or adenopathy.? No ventral hernias.? ? Bones:? No suspicious bony lesions.? No vertebral body compression fractures.? ? ? IMPRESSION:? ? 1. No evidence of aortic dissection. ? 2. Ectasia of the ascending thoracic aorta without definite aortic aneurysm. ? 3. No acute airspace opacities. ? 4. Right nephrolithiasis without obstructive uropathy. ? 5. Cholelithiasis without CT evidence of cholecystitis. ? ? ? Dictated by: Matt Andujar M.D. on 11/10/2021 at 0:14 ? ? Approved by: Matt Andujar M.D. on 11/10/2021 at 0:21 ? MDM Narrative Medical decision making narrative: Multiple etiologies for patient's symptoms considered including, but not limited to: Cardiac ischemia, this is thought unlikely given lack of dizziness or lightheadedness, lack of exertional symptoms, no occlusive findings on EKG and negative troponin greater than 6 hours after the onset of symptoms PULMONARY EMBOLISM, DISSECTION AND AAA CONSIDERED BUT THOUGHT UNLIKELY GIVEN LACK OF FINDINGS ON CT ANGIOGRAPHY OF CHEST, ABDOMEN AND PELVIS Bowel obstruction, appendicitis, colitis and other infectious or inflammatory conditions of the bowel considered but thought unlikely given lack of lab or imaging findings. Patient's symptoms improved over duration of stay with above-stated therapies. Findings and discharge diagnosis discussed with patient/family followed by verbalization of understanding Return precautions discussed with patient/family whom verbalize understanding. Discharge Plan Departure Patient Disposition: Home Clinical Impression: Abdominal pain, Diarrhea Instructions: DI for Abdominal Pain-Adult Activity Restrictions/Additional Instructions: *You have been diagnosed with [abdominal cramping, diarrhea and posterior left shoulder pain. As we discussed your labs, EKG and images are very reassuring. There is no evidence of heart attack, blood clot, pneumonia, bowel obstruction or other severe diagnosis which would require a specific intervention, hospitalization or surgery. *What to do: *Please continue to take your regular medications as directed. [ ] New medication prescriptions sent to your pharmacy: [ ] [ ] New medication written as a paper prescription [ x] No new medications given *Please follow up with your primary care provider in 2-3 days, call for an appointment. Let them know you were seen in the Emergency Department and that we ask that you be seen in follow up. We will electronically transmit a record of today's note if your PCP is in our system *If you do not have a primary care provider please contact the [facility] Resource line at [phone]. They will ask some questions about your medical history and help get you set up with a doctor in the community. *Return to Emergency Department if you should have any new, worsening or concerning symptoms, such as [fever greater than 101 F, shaking chills, worsening pain, persistent vomiting or other bothersome symptoms] Prescriptions: No Action cetirizine [Zyrtec] 10 mg capsule 10 mg PO DAILY 0RF (DME) blood sugar diagnostic [FreeStyle Test] strip See Dose Instructions .ROUTE .MEDSUPPLY Qty: 100 0RF Dose Instruction: As directed Rx Instructions: Use to test blood sugars once daily. cholecalciferol (vitamin D3) 5,000 unit capsule 5,000 unit PO DAILY 0RF ketoconazole 2 % cream 1 applictn TOP BID Qty: 60 2RF Rx Instructions: use for three more days after clearance diltiazem HCl 120 mg capsule,extended release 24hr 120 mg PO DAILY Qty: 90 3RF metoprolol succinate 50 mg tablet extended release 24 hr 50 mg PO BID Qty: 180 3RF metformin 500 mg tablet extended release 24 hr 500 mg PO BID Qty: 180 3RF Shingrix (PF) 50 mcg/0.5 mL suspension for reconstitution 0.5 ml IM ONCE Qty: 1 1RF Rx Instructions: 0.5 mL administered as a 2-dose series at 0 and 2 to 6 months. diazepam [Valium] 10 mg tablet 10 mg PO DAILY PRN (Reason: flying ) Qty: 5 0RF Label Comments: Takes only when she flies Rx Instructions: Take 1 hour prior to flight Eliquis 5 mg tablet 5 mg PO BID 0RF Eliquis 5 mg tablet 5 mg PO BID Qty: 60 1RF melatonin 3 mg Tablet 3 mg PO BEDTIME 0RF magnesium 250 mg Tablet 500 mg PO DAILY 0RF meclizine 25 mg tablet 25 mg PO DAILY PRN (Reason: dizziness) Qty: 20 0RF Referrals: Leeroy Oropeza ARNP [Primary Care Provider] -
--- NOTE | 2021-11-09 21:35 | DI.RAD.S_ITS ---
PROCEDURE: XR ACUTE ABDOMEN SERIES INDICATIONS: upper back pain and N/V/D TECHNIQUE: One view chest and two views of the abdomen were acquired. COMPARISON: [facility], CR, XR ABDOMEN MIN 2V, 11/13/2018, 18:45. [facility], CR, XR CHEST 1V, 12/25/2018, 9:45. FINDINGS: Surgical changes and devices: None. Chest: Lungs are clear. There is hyperinflation of the lungs with flattening of the hemidiaphragms compatible with COPD. Heart size is normal. No pleural effusions. No pneumoperitoneum. Abdomen: Bowel gas pattern appears within normal limits. No suspicious calcifications. Bones: No suspicious bony lesions. There is a mild leftward curvature of the lumbar spine with mild to moderate multilevel degenerative disc disease. IMPRESSION: 1. No evidence of bowel obstruction. Dictated by: Matt Andujar M.D. on 11/09/2021 at 22:33 Approved by: Matt Andujar M.D. on 11/09/2021 at 22:37
[2021-11-09 21:49] VITALS: PULSE 84; RESP 21
[2021-11-09 21:52] LABS: Add Manual Diff / Slide Review NO; Basophils Absolute Auto 100 /uL (0-100); Basophils Percent Auto 1.1 % (0-2); Eosinophils Absolute Auto 100 /uL (0-450); Eosinophils Percent Auto 1.2 % (2-4); Hematocrit 43.7 % (36-46); Lymphocytes Absolute Auto 3000 /uL (1100-4500); Lymphocytes Percent Auto 37.5 % (25-40); Mean Corpuscular HGB Conc 34.3 % (30-36); Mean Corpuscular Volume 84.6 fL (80-100); Monocytes Absolute Auto 500 /uL (0-900); Monocytes Percent Auto 6.5 % (3-14); Neutrophils Absolute Auto 4200 /uL (1500-7000); Neutrophils Percent Auto 53.7 % (50-75); Platelet Count 243 X10^3/uL (150-400); Red Blood Cell Count 5.17 X10^6/uL (4.0-5.2); Red Cell Distribution Width 13.9 % (11.6-14.8); White Blood Cell Count 7.9 X10^3/uL (4.5-11.0)
[2021-11-09 22:01] VITALS: PULSE 88; RESP 23; O2SAT 96
[2021-11-09 22:09] LABS: Alanine Aminotransferase 45 IU/L (<35); Albumin 4.7 g/dL (3.5-5.0); Albumin Globulin Ratio 1.3 (1.0-2.8); Alkaline Phosphatase 60 U/L (38-126); Aspartate Aminotransferase 41 IU/L (14-36); BUN Creatinine Ratio 17.5 (6-22); Bilirubin Total 0.7 mg/dL (0.2-1.3); Blood Urea Nitrogen 11 mg/dL (7-17); Calcium 10.2 mg/dL (8.4-10.2); Carbon Dioxide 28 mmol/L (22-32); Chloride 103 mmol/L (98-107); Creatine Kinase 64 U/L (30-135); Estimated Glomerular Filt Rate > 60 mL/min (>60); Globulin 3.7 g/dL (1.7-4.1); Glucose 163 mg/dL (80-110); HEMOLYSIS < 15 (0-50); Lipase 176 U/L (23-300); Magnesium 1.4 mg/dL (1.6-2.3); Potassium 3.7 mmol/L (3.4-5.1); Sodium 140 mmol/L (137-145); Total Protein 8.4 g/dL (6.3-8.2)
[2021-11-09 22:19] LABS: Troponin I < 0.012 ng/mL (0.01-0.034)
[2021-11-09 22:30] VITALS: PULSE 90; RESP 23; O2SAT 94
--- NOTE | 2021-11-09 22:59 | DI.CT.S_ITS ---
PROCEDURE: CT ANGIO CHEST ABDOMEN PELVIS INDICATIONS: upper back pain, left arm pain/numb, abd pain, HTN TECHNIQUE: Precontrast 5 mm thick sections acquired from the lung apices to the iliac crests. After the administration of intravenous contrast, 2.5 mm thick sections again acquired from the lung apices to the iliac crests. Maximum intensity projection (MIP) oblique sagittal and coronal reformats were then acquired. For radiation dose reduction, the following was used: automated exposure control. COMPARISON: None. FINDINGS: Image quality: Excellent. AORTA: Noncontrast images demonstrate no evidence of intramural hematoma. There is ectasia of the ascending thoracic aorta which measures up to 3.8 cm. The remainder of the aorta appears normal in caliber and contour. No intimal flaps to suggest dissection. There is mild scattered atherosclerotic plaque along the course of the aorta and its branch vessels. There is a bovine aortic arch with common origin of the right brachiocephalic and left common carotid arteries. The visualized great vessels are normal in caliber and appear patent. The celiac, superior mesenteric, and inferior mesenteric arteries appear patent. There are single renal arteries bilaterally which appear patent. The common, external, and internal iliac arteries appear patent bilaterally. The common femoral and visualized proximal superficial femoral arteries also appear patent. CHEST: Lungs and pleura: No acute consolidation. There is mild linear scarring bilaterally. No pleural effusions or pneumothorax. Central and peripheral airways are patent and normal in caliber. Mediastinum: Heart size is normal. No pericardial effusion. No mediastinal or hilar adenopathy by size criteria. Central pulmonary arteries are normal in size. Evaluation for pulmonary embolism is limited due to the phase of enhancement. Esophagus is normal in caliber. There is a small hiatal hernia. Bones and chest wall: No axillary adenopathy by size criteria. Thyroid gland is enlarged and heterogeneous with multiple ill-defined hypoattenuating nodules bilaterally. No suspicious bony lesions. No vertebral body compression fractures. ABDOMEN: Solid organs: There is diffuse hypoattenuation of the liver consistent with fatty infiltration. Multiple hypodense foci are demonstrated within the gallbladder compatible with noncalcified gallstones. No gallbladder wall thickening or pericholecystic fluid. Biliary system is non-dilated. Pancreas enhances normally. No peripancreatic fat stranding or fluid collections. No pancreatic duct dilatation. The spleen is normal in size. No adrenal nodules. Kidneys demonstrate no hydronephrosis. There is a nonobstructing stone within the inferior pole of the right kidney measuring up to 0.4 cm. Bilateral renal cysts are demonstrated as well as nonspecific perinephric stranding. Peritoneum and bowel: No free fluid or air. Bowel loops are normal in caliber and wall thickness. No pericecal inflammatory changes to suggest appendicitis. There is colonic diverticulosis without acute diverticulitis. Nodes and vessels: No retroperitoneal or mesenteric adenopathy by size criteria. Inferior vena cava is normal in morphology. Miscellaneous: No ventral hernias. PELVIS: Genitourinary: Bladder wall thickness is normal. The uterus is surgically absent. Miscellaneous: No inguinal hernias or adenopathy. No ventral hernias. Bones: No suspicious bony lesions. No vertebral body compression fractures. IMPRESSION: 1. No evidence of aortic dissection. 2. Ectasia of the ascending thoracic aorta without definite aortic aneurysm. 3. No acute airspace opacities. 4. Right nephrolithiasis without obstructive uropathy. 5. Cholelithiasis without CT evidence of cholecystitis. Dictated by: Matt Andujar M.D. on 11/10/2021 at 0:14 Approved by: Matt Andujar M.D. on 11/10/2021 at 0:21
[2021-11-09 23:33] VITALS: PULSE 87; RESP 22; O2SAT 96
[2021-11-09 23:34] VITALS: BP 179/79; PULSE 88; O2SAT 95
[2021-11-09] MEDS: LORazepam 2 MG/ML INJ (23:35)
[2021-11-10] VITALS: BP 159/82; PULSE 91; RESP 23; O2SAT 93
[2021-11-10 00:30] VITALS: BP 143/68; PULSE 87; RESP 22; O2SAT 93
[2021-11-10 01:00] VITALS: BP 150/72; PULSE 87; RESP 22; O2SAT 93
[2021-11-10] MEDS: LIDOCAINE PATCH 1 EACH ADH..PATCH TOP (02:03)
[2021-11-10] MEDS: ONDANSETRON 4 MG ODT PREPACK 1 BOTTLE MISC (02:03)
== END 2021-11-10 02:15 | disposition home or self-care (01) ==
PROVIDERS: Emergency Provider Emergency Medicine; PCP Registered Nurse Diabetes Educator
DX: R10.84 Generalized abdominal pain (principal); R19.7 Diarrhea, unspecified; Z87.891 Personal history of nicotine dependence
CPT/HCPCS: 36415; 71275; 74022; 74174; 80053; 81003; 82550; 83690; 83735; 84484; 85025; 93005; 93010; 99284; J2060

== ENCOUNTER → 2021-11-28 14:12 | Outpatient (CLI) | payer MEDICARE, SELFPAY ==
--- NOTE | 2021-11-28 14:14 | DI.US.S_ITS ---
PROCEDURE: US THYROID INDICATIONS: MULTIPLE THYROID NODULE TECHNIQUE: Real-time scanning was performed of the thyroid gland, with image documentation. COMPARISON: [facility], CT, CT ANGIO CHEST ABDOMEN PELVIS, 11/09/2021, 23:30. [facility], US, THYROID, 04/02/2017, 13:33. FINDINGS: Right: Thyroid lobe measures 4.5 x 2.1 x 1.9 cm, and is homogeneous in echotexture. Left: Thyroid lobe measures 5 x 2.3 x 2.3 cm, and is homogenous in echotexture. Isthmus: 0.8 cm thick. Nodule number: 1 Location: Right superior Size: 1.1 x 1 x 0.7 cm. Similar in size. Composition: Spongiform Echogenicity: Isoechoic Shape: wider than tall. Margins: Smooth Echogenic foci: None Total points: 1 ACR TI-RADS category: TR 1, benign Nodule number: 2 Location: Right inferior Size: 1.9 x 1.9 x 1.7 cm. Composition: Spongiform Echogenicity: Isoechoic Shape: wider than tall. Margins: Smooth Echogenic foci: None Total points: 1 ACR TI-RADS category: TR 1, benign Nodule number: 3 Location: Left mid Size: 2.6 x 2.1 x 1 cm. (Previously 1.3 x 1.2 x 1.1 cm). Composition: Spongiform Echogenicity: Isoechoic Shape: wider than tall. Margins: Ill-defined Echogenic foci: None Total points: 1 ACR TI-RADS category: TR 1, benign Nodule number: 4 Location: Left mid Size: 3.1 x 1.6 x 1.1 cm. (Previously 1.5 x 1.4 x 1.2 cm). Composition: Spongiform Echogenicity: Hypoechoic Shape: wider than tall. Margins: Ill-defined Echogenic foci: None. Total points: 2 ACR TI-RADS category: TR 2, not suspicious IMPRESSION: Multiple bilateral ill-defined thyroid nodules. Overall these are benign-appearing. Some may be mildly increased in size compared to 2017. Follow-up thyroid ultrasound could be considered. ACR TI-RADS definitions and recommendations: TI-RADS 1 (benign): 0 points. FNA not needed. TI-RADS 2 (not suspicious): 2 points. FNA not needed. TI-RADS 3 (mildly suspicious): 3 points. * FNA if 2.5 cm or larger, follow up if 1.5 cm or larger (at 1, 3, and 5 years). TI-RADS 4 (moderately suspicious): 4-6 points. * FNA if 1.5 cm or larger, follow up if 1 cm or larger (at 1, 2, 3, and 5 years). TI-RADS 5 (highly suspicious): 7 points or more. * FNA if 1 cm or larger, follow up if 0.5 cm or larger (every year for 5 years). Dictated by: Wang Rosas M.D. on 11/28/2021 at 15:25 Approved by: Wang Rosas M.D. on 11/28/2021 at 15:34
== END ==
PROVIDERS: Family Provider Registered Nurse Diabetes Educator; PCP Registered Nurse Diabetes Educator; Referring Provider Otolaryngology; Visit Provider Otolaryngology
DX: E04.2 Nontoxic multinodular goiter (principal)
CPT/HCPCS: 76536

== ENCOUNTER → 2021-12-30 10:06 | Outpatient (CLI) | payer MEDICARE, SELFPAY ==
[2021-12-30 12:06] LABS: Cholesterol 221 mg/dL (140-199); HDL Cholesterol 58 mg/dL (40-60); LDL Cholesterol Calculated 129 mg/dL (<100); Magnesium 1.5 mg/dL (1.6-2.3); Triglycerides 168 mg/dL (35-150)
[2021-12-30 12:30] LABS: Hemoglobin A1C% w Est Avg Glu 8.3 % (4.0-6.0)
== END ==
PROVIDERS: Family Provider Registered Nurse Diabetes Educator; PCP Registered Nurse Diabetes Educator; Referring Provider Registered Nurse Diabetes Educator; Visit Provider Registered Nurse Diabetes Educator
DX: E11.9 Type 2 diabetes mellitus without complications (principal); E78.5 Hyperlipidemia, unspecified; R80.9 Proteinuria, unspecified
CPT/HCPCS: 36415; 80061; 83036; 83735

== ENCOUNTER 2022-01-17 12:11 | Emergency (ER) | payer MEDICARE, SELFPAY ==
[2022-01-17] VITALS (19 sets, daily range): BP systolic 143–197; BP diastolic 68–122; PULSE 72–85; RESP 18–31; TEMP 36.4; O2SAT 93–97; BMI 30.7
[2022-01-17 13:16] LABS: BUN Creatinine Ratio 17.4 (6-22); Blood Urea Nitrogen 12 mg/dL (7-17); Calcium 9.6 mg/dL (8.4-10.2); Carbon Dioxide 28 mmol/L (22-32); Chloride 99 mmol/L (98-107); Estimated Glomerular Filt Rate > 60 mL/min (>60); Glucose 261 mg/dL (80-110); HEMOLYSIS < 15 (0-50); Sodium 137 mmol/L (137-145)
[2022-01-17 13:27] LABS: Troponin I < 0.012 ng/mL (0.01-0.034)
[2022-01-17 13:38] LABS: Add Manual Diff / Slide Review NO; Basophils Absolute Auto 100 /uL (0-100); Basophils Percent Auto 0.8 % (0-2); Eosinophils Absolute Auto 200 /uL (0-450); Eosinophils Percent Auto 3.1 % (2-4); Hematocrit 46.5 % (36-46); Hemoglobin 15.9 g/dL (12.0-16.0); Lymphocytes Absolute Auto 3200 /uL (1100-4500); Lymphocytes Percent Auto 45.5 % (25-40); Mean Corpuscular HGB Conc 34.1 % (30-36); Mean Corpuscular Hemoglobin 29.4 PG (26-34); Mean Corpuscular Volume 86.1 fL (80-100); Monocytes Absolute Auto 400 /uL (0-900); Monocytes Percent Auto 6.2 % (3-14); Neutrophils Absolute Auto 3100 /uL (1500-7000); Neutrophils Percent Auto 44.4 % (50-75); Platelet Count 224 X10^3/uL (150-400); Red Blood Cell Count 5.39 X10^6/uL (4.0-5.2); Red Cell Distribution Width 13.6 % (11.6-14.8); White Blood Cell Count 7.1 X10^3/uL (4.5-11.0)
--- NOTE | 2022-01-17 16:11 | ED_ITS ---
HPI - Dizziness General Chief Complaint: Dizziness Stated Complaint: Vertigo Time Seen by Provider: 01/17/22 13:46 Source: patient and EMS Mode of arrival: EMS Limitations: no limitations History of Present Illness HPI Narrative: This is a 76-year-old female with history of benign positional paroxysmal vertigo, AFib and diabetes who arrives with vertigo-like symptoms that she woke with at 9:00 a.m. this morning. Patient states she is had vertigo in the past intermittently. She is seen ENT with Dr. Charles Medeiros as well as had PT which was quite helpful. She is had meclizine in the past but states it helps mostly with nausea. Patient states today's symptoms have been slightly different and that it has been more persistent than waxing and waning in intensity. But otherwise the same. She has mild headache which he states is typical this time of year with the seasonal changes. She has no vision changes, no speech difficulties, no numbness, tingling or weakness of her extremities, no chest pain or shortness of breath. She is had nausea but no vomiting. No diarrhea, constipation or urinary symptoms. Patient presents today because the vertigo was significant enough that she was unable to ambulate safely at home and lives alone. Related Data Home Medications Medication Instructions Recorded Confirmed cetirizine 10 mg capsule (Zyrtec) 10 mg PO DAILY 01/05/18 12/04/21 cholecalciferol (vitamin D3) 125 5,000 unit PO DAILY 05/06/18 12/04/21 mcg (5,000 unit) capsule magnesium 250 mg tablet 500 mg PO DAILY 08/08/19 12/04/21 melatonin 3 mg tablet 3 mg PO BEDTIME 08/08/19 12/04/21 apixaban 5 mg tablet (Eliquis) 5 mg PO BID 07/17/21 12/04/21 Previous Rx's Medication Instructions Recorded blood sugar diagnostic (FreeStyle #100 ea 01/05/18 Test strips) meclizine 25 mg tablet 25 mg PO DAILY PRN dizziness #20 04/17/21 tabs diltiazem HCl 120 mg 120 mg PO DAILY #90 caps 06/17/21 capsule,extended release 24 hr metoprolol succinate 50 mg 50 mg PO BID #180 tabs 06/17/21 tablet,extended release 24 hr varicella-zoster glycoE [id number] 0.5 ml IM ONCE #1 ea 06/17/21 adj(PF) 50 mcg/0.5 mL IM susp, kit (Shingrix (PF)) apixaban 5 mg tablet (Eliquis) 5 mg PO BID #60 tabs 07/17/21 ketoconazole 2 % topical cream 1 applic topical BID #60 grams 12/04/21 diazepam 10 mg tablet (Valium) 10 mg PO DAILY PRN flying #5 tabs 12/08/21 blood-glucose meter,continuous #1 ea 12/11/21 (Dexcom G6 [place] [place] misc) blood-glucose sensor (Dexcom G6 #3 ea 12/11/21 Sensor device) blood-glucose transmitter (Dexcom #1 ea 12/11/21 G6 Transmitter device) meclizine 25 mg chewable tablet 25 mg PO QID #20 tabs 01/17/22 Allergies Allergy/AdvReac Type Severity Reaction Status Date / Time fluticasone [From Flonase] Allergy Severe lip/mouth Verified 12/04/21 13:49 swelling from generic Influenza Virus Vaccines Allergy Intermediate Arm Verified 12/04/21 13:49 swelling, admitted to [facility] for few days simvastatin AdvReac Intermediate Severe Verified 12/04/21 13:49 muscle weekness and pain Review of Systems Review of Systems ROS Unobtainable: All systems reviewed & are unremarkable except as noted in HPI and below Patient History Medical History Allergic rhinitis (Unknown) Allergic rhinitis Diabetes (Unknown) Diabetes type 2, controlled Dyslipidemia Hyperlipemia (Unknown) Hypertension (Unknown) Left-sided tinnitus (Unknown) Microalbuminuria SVT (supraventricular tachycardia) (2013) Surgical History Cataract extraction status of left eye History of carpal tunnel release (05/2013) Hx of hysterectomy (Unknown) Hx of tonsillectomy (Unknown) Family History Father No problems noted. Mother No problems noted. Social History household members: none Smoking Status: Former smoker Tobacco: How many years used: 30 alcohol intake: never Smoking Status: Former smoker alcohol intake frequency: holidays/special occasions only Substance Use Type: does not use Exam Narrative Exam Narrative: GEN: well nourished, well appearing female, alert and oriented x 3, patient appears to be in mild distress. HEENT: Atraumatic, pupils are equal round reactive to light, extraocular movements are intact, no nystagmus, nares are clear, TMs are clear with no fluid, there is no conjunctival pallor. Throat is clear without any exudates, erythema, tonsillar enlargement or uvular deviation, no facial droop. HEART: Regular rate and rhythm without murmur, clicks, rubs. Pulses are equal in upper and lower extremities LUNGS:Lungs clear to auscultation, no wheezes, rales, crackles, chest moves symmetrically ABD:bowel sounds normal, soft, non-tender, no guarding, rebound, rigidity, no masses noted, no hepatosplenomegaly :No CVA tenderness MSCL: Non-tender, no muscle atrophy, muscles strength 5/5 upper and lower extremities, full range of motion NEURO:CN 2-12 intact, sensation normal SKIN: No rash, erythema or other changes noted. Initial Vital Signs Initial Vital Signs: Vital Signs Pulse Rate 79 01/17/22 12:18 Respiratory Rate 22 01/17/22 12:18 Blood Pressure 197/88 H 01/17/22 12:18 Pulse Oximetry 97 01/17/22 12:18 Course Orders Ordered: Discontinued Medications Sodium Chloride (Normal Saline 0.9%) 1,000 mls @ 500 mls/hr IV BOLUS ONE Stop: 01/17/22 18:05 Last Infusion: 01/17/22 18:21 Dose: 0 mls/hr Documented By: Admin: 01/17/22 16:27 Dose: 500 mls/hr Documented By: PRITI Meclizine HCl (Meclizine Hcl 12.5 Mg Tablet) 25 mg PO NOW ONE Stop: 01/17/22 16:07 Last Admin: 01/17/22 16:26 Dose: 25 mg Documented By: PRITI Reevaluation(s) Reevaluation #1: Patient able to ambulate with walker in department. She is awaiting her daughter coming to get her. Time: 19:00 Vital Signs Vital signs: Vital Signs - 8 hr 01/17/22 12:21 01/17/22 12:18 01/17/22 12:18 Temperature 97.5 F L Pulse Rate 80 79 Respiratory Rate 18 22 Blood Pressure 197/88 H 197/88 H Pulse Oximetry 93 97 Oxygen Delivery Method Room Air 01/17/22 12:30 01/17/22 12:30 01/17/22 13:00 Temperature Pulse Rate 75 Respiratory Rate 23 Blood Pressure 171/79 H 180/79 H Pulse Oximetry 97 Oxygen Delivery Method 01/17/22 13:00 01/17/22 13:30 01/17/22 13:30 Temperature Pulse Rate 77 75 Respiratory Rate 24 22 Blood Pressure 145/76 H Pulse Oximetry 94 95 Oxygen Delivery Method 01/17/22 13:49 01/17/22 13:49 01/17/22 14:00 Temperature Pulse Rate 74 Respiratory Rate 26 H Blood Pressure 163/76 H 149/68 H Pulse Oximetry 96 Oxygen Delivery Method 01/17/22 14:00 01/17/22 14:30 01/17/22 14:30 Temperature Pulse Rate 75 74 Respiratory Rate 31 H 23 Blood Pressure 172/75 H Pulse Oximetry 95 94 Oxygen Delivery Method 01/17/22 15:00 01/17/22 15:00 01/17/22 15:30 Temperature Pulse Rate 76 Respiratory Rate 23 Blood Pressure 150/75 H 157/72 H Pulse Oximetry 93 Oxygen Delivery Method 01/17/22 15:30 01/17/22 16:00 01/17/22 16:01 Temperature Pulse Rate 72 82 77 Respiratory Rate 21 29 H Blood Pressure Pulse Oximetry 93 95 95 Oxygen Delivery Method 01/17/22 16:01 01/17/22 16:30 01/17/22 16:31 Temperature Pulse Rate 73 Respiratory Rate 20 Blood Pressure 194/89 H 156/122 H Pulse Oximetry 94 Oxygen Delivery Method 01/17/22 16:31 01/17/22 16:40 01/17/22 16:40 Temperature Pulse Rate 85 77 Respiratory Rate 20 20 Blood Pressure 162/73 H Pulse Oximetry 94 96 Oxygen Delivery Method 01/17/22 17:00 01/17/22 17:00 01/17/22 17:30 Temperature Pulse Rate 75 75 Respiratory Rate 20 20 Blood Pressure 143/73 H Pulse Oximetry 94 95 Oxygen Delivery Method 01/17/22 18:00 Temperature Pulse Rate 75 Respiratory Rate 20 Blood Pressure Pulse Oximetry 94 Oxygen Delivery Method [facility] Lab Data Result diagrams: 01/17/22 12:43 01/17/22 12:43 Labs: Lab Results 01/17/22 01/17/22 Range/Units 12:43 12:43 WBC 7.1 (4.5-11.0) X10^3/uL RBC 5.39 H (4.0-5.2) X10^6/uL Hgb 15.9 (12.0-16.0) g/dL Hct 46.5 H (36-46) % MCV 86.1 (80-100) fL MCH 29.4 (26-34) PG MCHC 34.1 (30-36) % RDW 13.6 (11.6-14.8) % Plt Count 224 (150-400) X10^3/uL Neut % (Auto) 44.4 L (50-75) % Lymph % (Auto) 45.5 H (25-40) % Cloud % (Auto) 6.2 (3-14) % Eos % (Auto) 3.1 (2-4) % Baso % (Auto) 0.8 (0-2) % Neut # (Auto) 3100 (6794-1893) /uL Lymph # (Auto) 3200 (4011-8018) /uL Cloud # (Auto) 400 (0-900) /uL Eos # (Auto) 200 (0-450) /uL Baso # (Auto) 100 (0-100) /uL Sodium 137 (137-145) mmol/L Potassium 4.0 (3.4-5.1) mmol/L Chloride 99 (98-107) mmol/L Carbon Dioxide 28 (22-32) mmol/L BUN 12 (7-17) mg/dL Creatinine 0.69 (0.52-1.04) mg/dL Estimated GFR > 60 (>60) mL/min BUN/Creatinine Ratio 17.4 (6-22) Glucose 261 H (80-110) mg/dL Calcium 9.6 (8.4-10.2) mg/dL Troponin I < 0.012 (0.01-0.034) ng/mL Urine Dip Bedside Urine Glucose 250 mg/dl Bedside Urine Bilirubin - Negative Bedside Urine Ketone - Negative Urine Specific Drexel 1.010 Bedside Urine Occult Blood - Negative Bedside Urine pH 6.0 Bedside Urine Protein - Negative Bedside Urine Urobilinogen 0.2 Bedside Urine Nitrite - Negative Bedside Urine Leukocytes +/- [address] scan - head: Radiologist's Impression: Close Head CT (Signed) Adriano Cerda - 01/17/22 Thyroid Ultrasound (Signed) Wang Rosas - 11/28/21 Chest/Abdomen/Pelvis CTA (Signed) AndujarMatt - 11/09/21 Chest/Abdomen X-ray (Signed) Matt Andujar - 11/09/21 Echocardiogram Ultrasound (Signed) Shawn Javier - 01/02/[address] (Signed) ShawVamshitevin - 12/25/18 Chest X-Ray (Signed) Sarkis Shaw - 12/25/18 Soft Tissue Neck X-Ray (Signed) LeathaAdi - 11/13/18 Abdomen X-Ray (Signed) ZhangAdi - 11/13/18 Chest X-Ray (Signed) ZhangAdi - 11/13/18 Chest X-Ray (Signed) Cipriano Pelayo - 02/16/18 Launch?[place] [address] CT Scan Report Signed Patient: Rica Fabian MR#: [id number] : 1945 Acct:[id number] Age/Sex: 76 / F Date of Service: 01/17/22 Loc: Accession Number: [id number] ?? Procedure: CT head/brain wo con Ordering Provider: Fernanda Doyle D.O. PROCEDURE:? CT HEAD/BRAIN WO CON ? INDICATIONS:? vertigo hx ? TECHNIQUE:? Noncontrast 4.5 mm thick angled axial sections acquired from the foramen magnum to the vertex, with coronal and sagittal reformats.? For radiation dose reduction, the following was used:? automated exposure control, adjustment of mA and/or kV according to patient size.? ? COMPARISON:? [facility], CT, CT HEAD/BRAIN WO CON, 12/25/2018, 10:20. ? FINDINGS:? Image quality:? Excellent.? ? CSF spaces:? Basal cisterns are patent.? No extra-axial fluid collections.? Ventricles are normal in size and shape.? ? Brain:? No midline shift.? No intracranial masses or hemorrhage.? -white matter interface is normal. ? Subcortical and periventricular white matter hypodensities are consistent with microvascular ischemic disease. ? Skull and face:? Calvarium and visualized facial bones are intact, without susp icious lesions.? ? Sinuses:? Visualized sinuses and mastoids are clear.? ? IMPRESSION:? 1. No acute intracranial abnormality. 2. Cerebral volume loss and small vessel ischemic changes.? Dictated by: Adriano Cerda M.D. on 01/17/2022 at 16:37 ? ? Approved by: Adriano Cerda M.D. on 01/17/2022 at 16:39 ECG Data Attestation: I personally reviewed and interpreted this ECG as follows: Prior ECG tracings: available for review Interpretation: Sinus rhythm rate of 71 VT 162 QRS 86 and QTC 449. No acute ST changes appreciated. Patient has prior from 11/09/2021 with no acute changes. MDM Narrative Medical decision making narrative: This is a 76-year-old with acute on chronic vertigo patient's only differences this has been more persistent than her prior episodes. She does note some tinnitus recently the last several days. She has been seen by ENT uneven had PT for her vertigo which was the most helpful for her. Patient was slightly hypertensive had mild headache with recent tinnitus head CT was ordered. She does not have any acute neurologic symptoms concerning for stroke at this time. Suspect exacerbation of her BPPV. Labs showed no major abnormalities, EKG shows no acute changes. Patient was given fluids and meclizine and on re-evaluation patient had improvement. She was able to ambulate here in the department she did ask to try with a walker and 1 was given to her for home. Discharge Plan Departure Patient Disposition: Home Clinical Impression: Vertigo Instructions: DI for Vertigo Activity Restrictions/Additional Instructions: Follow-up with ENT and/or PT again for your vertigo. You can take meclizine or Antivert 1-2 tablets every 6 hours as needed for symp toms. This is available asoa-aim-dyvxrev but [facility] [place]. You may continue home medications as prescribed. Please return for fevers, new or worsening chest pain, shortness of breath, rapidly worsening vertigo and, inability to safely ambulate at home or other new or concerning symptoms. Prescriptions: New meclizine 25 mg tablet,chewable 25 mg PO QID Qty: 20 0RF No Action cetirizine [Zyrtec] 10 mg capsule 10 mg PO DAILY (DME) blood sugar diagnostic [FreeStyle Test] strip See Dose Instructions .ROUTE .MEDSUPPLY Qty: 100 0RF Dose Instruction: As directed Rx Instructions: Use to test blood sugars once daily. cholecalciferol (vitamin D3) 5,000 unit capsule 5,000 unit PO DAILY diltiazem HCl 120 mg capsule,extended release 24hr 120 mg PO DAILY Qty: 90 3RF metoprolol succinate 50 mg tablet extended release 24 hr 50 mg PO BID Qty: 180 3RF Shingrix (PF) 50 mcg/0.5 mL suspension for reconstitution 0.5 ml IM ONCE Qty: 1 1RF Rx Instructions: 0.5 mL administered as a 2-dose series at 0 and 2 to 6 months. Eliquis 5 mg tablet 5 mg PO BID Eliquis 5 mg tablet 5 mg PO BID Qty: 60 1RF ketoconazole 2 % cream 1 applic TOP BID Qty: 60 2RF Rx Instructions: use for three more days after clearance diazepam [Valium] 10 mg tablet 10 mg PO DAILY PRN (Reason: flying ) Qty: 5 0RF Label Comments: Takes only when she flies Rx Instructions: Take 1 hour prior to flight (DME) Dexcom G6 [employer] [place] Misc See Rx Instructions .Route Qty: 1 0RF Rx Instructions: As directed (DME) Dexcom G6 Sensor Device See Rx Instructions .Route Qty: 3 12RF Rx Instructions: As directed (DME) Dexcom G6 Transmitter Device See Rx Instructions .Route Qty: 1 4RF Rx Instructions: As directed melatonin 3 mg Tablet 3 mg PO BEDTIME magnesium 250 mg Tablet 500 mg PO DAILY meclizine 25 mg tablet 25 mg PO DAILY PRN (Reason: dizziness) Qty: 20 0RF Referrals: Charles Medeiros MD [Physician] - Leeroy Oropeza ARNP [Primary Care Provider] - Visit Report Forms: Patient Portal/API
--- NOTE | 2022-01-17 16:12 | DI.CT.S_ITS ---
PROCEDURE: CT HEAD/BRAIN WO CON INDICATIONS: vertigo hx TECHNIQUE: Noncontrast 4.5 mm thick angled axial sections acquired from the foramen magnum to the vertex, with coronal and sagittal reformats. For radiation dose reduction, the following was used: automated exposure control, adjustment of mA and/or kV according to patient size. COMPARISON: [facility], CT, CT HEAD/BRAIN WO CON, 12/25/2018, 10:20. FINDINGS: Image quality: Excellent. CSF spaces: Basal cisterns are patent. No extra-axial fluid collections. Ventricles are normal in size and shape. Brain: No midline shift. No intracranial masses or hemorrhage. -white matter interface is normal. Subcortical and periventricular white matter hypodensities are consistent with microvascular ischemic disease. Skull and face: Calvarium and visualized facial bones are intact, without suspicious lesions. Sinuses: Visualized sinuses and mastoids are clear. IMPRESSION: 1. No acute intracranial abnormality. 2. Cerebral volume loss and small vessel ischemic changes. Dictated by: Adriano Cerda M.D. on 01/17/2022 at 16:37 Approved by: Adriano Cerda M.D. on 01/17/2022 at 16:39
[2022-01-17] MEDS: MECLIZINE HCL 12.5 MG TABLET 25 MG PO (16:26)
[2022-01-17] MEDS: SODIUM CHLORIDE 0.9% 1,000 ML 500 ML IV (16:27)
--- NOTE | 2022-01-17 18:32 | PC.NURSE ---
slow but steady gate, able to ambulate from bed to toilet with walker
== END 2022-01-17 20:45 | disposition home or self-care (01) ==
PROVIDERS: Emergency Provider Emergency Medicine; Family Provider Registered Nurse Diabetes Educator; PCP Registered Nurse Diabetes Educator
DX: R42 Dizziness and giddiness (principal)
CPT/HCPCS: 70450; 80048; 81003; 84484; 85025; 93005; 93010; 99284

== ENCOUNTER 2022-02-12 13:27 | Emergency (ER) | payer MEDICARE, SELFPAY ==
[2022-02-12 13:31] VITALS: BP 188/88; PULSE 91; RESP 16; TEMP 36.8; O2SAT 95; BMI 29.8
--- NOTE | 2022-02-12 13:38 | DI.RAD.S_ITS ---
PROCEDURE: XR CHEST 1V INDICATIONS: chest pain TECHNIQUE: One view of the chest was acquired. COMPARISON: [facility], CR, XR CHEST 1V, 12/25/2018, 9:45. FINDINGS: Surgical changes and devices: None. Lungs and pleura: Lungs are clear. No pleural effusions or pneumothorax. Mediastinum: Mediastinal contours appear normal. Heart size is normal. Bones and chest wall: No suspicious bony lesions. Overlying soft tissues appear unremarkable. IMPRESSION: No acute pulmonary process. Dictated by: Ameena Whitmore M.D. on 02/12/2022 at 13:58 Approved by: Ameena Whitmore M.D. on 02/12/2022 at 13:58
[2022-02-12 13:59] LABS: Add Manual Diff / Slide Review NO; Basophils Absolute Auto 100 /uL (0-100); Basophils Percent Auto 0.6 % (0-2); Eosinophils Absolute Auto 100 /uL (0-450); Eosinophils Percent Auto 0.6 % (2-4); Hematocrit 44.8 % (36-46); Hemoglobin 15.4 g/dL (12.0-16.0); Lymphocytes Absolute Auto 2900 /uL (1100-4500); Lymphocytes Percent Auto 31.8 % (25-40); Mean Corpuscular HGB Conc 34.4 % (30-36); Mean Corpuscular Hemoglobin 29.4 PG (26-34); Mean Corpuscular Volume 85.5 fL (80-100); Monocytes Absolute Auto 700 /uL (0-900); Monocytes Percent Auto 7.1 % (3-14); Neutrophils Absolute Auto 5500 /uL (1500-7000); Neutrophils Percent Auto 59.9 % (50-75); Platelet Count 235 X10^3/uL (150-400); Red Blood Cell Count 5.24 X10^6/uL (4.0-5.2); Red Cell Distribution Width 13.6 % (11.6-14.8); White Blood Cell Count 9.2 X10^3/uL (4.5-11.0)
[2022-02-12 14:10] LABS: Alanine Aminotransferase 32 IU/L (<35); Albumin 4.6 g/dL (3.5-5.0); Albumin Globulin Ratio 1.2 (1.0-2.8); Alkaline Phosphatase 64 U/L (38-126); Aspartate Aminotransferase 33 IU/L (14-36); BUN Creatinine Ratio 20.7 (6-22); Bilirubin Total 0.8 mg/dL (0.2-1.3); Blood Urea Nitrogen 12 mg/dL (7-17); Calcium 9.8 mg/dL (8.4-10.2); Carbon Dioxide 27 mmol/L (22-32); Chloride 101 mmol/L (98-107); Creatine Kinase 64 U/L (30-135); Estimated Glomerular Filt Rate > 60 mL/min (>60); Globulin 3.8 g/dL (1.7-4.1); Glucose 211 mg/dL (80-110); HEMOLYSIS 17 (0-50); Lipase 141 U/L (23-300); Magnesium 1.4 mg/dL (1.6-2.3); Sodium 137 mmol/L (137-145); Total Protein 8.4 g/dL (6.3-8.2)
[2022-02-12 14:22] LABS: Troponin I < 0.012 ng/mL (0.01-0.034)
[2022-02-12 16:57] VITALS: BP 154/90; PULSE 70; RESP 18; O2SAT 97
--- NOTE | 2022-02-12 17:08 | ED_ITS ---
HPI - Chest Pain General Chief Complaint: Chest Pain Stated Complaint: Cardiac issues- sent by paliwal Time Seen by Provider: 02/12/22 16:03 Source: patient Mode of arrival: Ambulatory Limitations: no limitations History of Present Illness HPI narrative: This is a 76-year-old female comes emergency department with complaint of pain radiating from her left shoulder down her bra line on her posterior thoracic region she states starts narrowing it is wider terms of the pain. It does not involve her breast or wrap all the way around. She states motion of her extremities or movement of her chest does not make it worse she describes it as a burning sensation and more superficial or muscular but not deeper or more intrathoracic. It is exacerbated by being in 1 position for prolonged periods, cold seems to alleviate or help it. Been present for 3 days she has had no rashes or skin changes that she is appreciated. Sort of waxes and wanes in intensity but kept her awake last night throughout the entire night. It is not worsened by exertion. No fevers, cold, cough or congestion. No shortness of breath. No nausea, no vomiting no diarrhea constipation or urinary symptoms. She is not had similar symptoms in the past. 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 She is had a hysterectomy in the past, appendectomy but no prior cardiac stents or interventions. Former smoker, no alcohol or THC. She was seen at the walk-in clinic told to try oral pain medications then went down to the cardiology clinic he referred her here. PCP is Dr. Doan, she is allergic to statins and Flonase. Related Data Home Medications Medication Instructions Recorded Confirmed cetirizine 10 mg capsule (Zyrtec) 10 mg PO DAILY 01/05/18 02/12/22 cholecalciferol (vitamin D3) 125 5,000 unit PO DAILY 05/06/18 02/12/22 mcg (5,000 unit) capsule magnesium 250 mg tablet 500 mg PO DAILY 08/08/19 02/12/22 melatonin 3 mg tablet 3 mg PO BEDTIME 08/08/19 02/12/22 apixaban 5 mg tablet (Eliquis) 5 mg PO BID 07/17/21 02/12/22 Previous Rx's Medication Instructions Recorded blood sugar diagnostic (FreeStyle #100 ea 01/05/18 Test strips) meclizine 25 mg tablet 25 mg PO DAILY PRN dizziness #20 04/17/21 tabs diltiazem HCl 120 mg 120 mg PO DAILY #90 caps 06/17/21 capsule,extended release 24 hr metoprolol succinate 50 mg 50 mg PO BID #180 tabs 06/17/21 tablet,extended release 24 hr varicella-zoster glycoE [id number] 0.5 ml IM ONCE #1 ea 06/17/21 adj(PF) 50 mcg/0.5 mL IM susp, kit (Shingrix (PF)) apixaban 5 mg tablet (Eliquis) 5 mg PO BID #60 tabs 07/17/21 ketoconazole 2 % topical cream 1 applic topical BID #60 grams 12/04/21 diazepam 10 mg tablet (Valium) 10 mg PO DAILY PRN flying #5 tabs 12/08/21 blood-glucose meter,continuous #1 ea 12/11/21 (Dexcom G6 Confectionery Maker misc) blood-glucose sensor (Dexcom G6 #3 ea 12/11/21 Sensor device) blood-glucose transmitter (Dexcom #1 ea 12/11/21 G6 Transmitter device) meclizine 25 mg chewable tablet 25 mg PO QID #20 tabs 01/17/22 gabapentin 300 mg capsule 300 mg PO TID #30 caps 02/12/22 (Neurontin) Allergies Allergy/AdvReac Type Severity Reaction Status Date / Time fluticasone [From Flonase] Allergy Severe lip/mouth Verified 02/12/22 13:38 swelling from generic Influenza Virus Vaccines Allergy Intermediate Arm Verified 02/12/22 13:38 swelling, admitted to [facility] for few days simvastatin AdvReac Intermediate Severe Verified 02/12/22 13:38 muscle weekness and pain Review of Systems Review of Systems ROS Unobtainable: All systems reviewed & are unremarkable except as noted in HPI and below Patient History Medical History Allergic rhinitis (Unknown) Allergic rhinitis Diabetes (Unknown) Diabetes type 2, controlled Dyslipidemia Hyperlipemia (Unknown) Hypertension (Unknown) Left-sided tinnitus (Unknown) Microalbuminuria SVT (supraventricular tachycardia) (2013) Surgical History Cataract extraction status of left eye History of carpal tunnel release (05/2013) Hx of hysterectomy (Unknown) Hx of tonsillectomy (Unknown) Family History Father No problems noted. Mother No problems noted. Social History household members: none Smoking Status: Former smoker Tobacco: How many years used: 30 alcohol intake: never Smoking Status: Former smoker alcohol intake frequency: holidays/special occasions only Substance Use Type: does not use Exam Narrative Exam Narrative: GENERAL: Alert and oriented x three, well-nourished female in mild distress. HEENT: Head normocephalic, atraumatic, EOMI, pupils reactive, face symmetric, moist mucous membranes NECK: Supple, full range of motion CARDIOVASCULAR: Regular rate and rhythm without murmurs, rubs or gallops. RESPIRATORY: Breath sounds equal bilaterally, no wheezes rales or rhonchi. ABDOMEN: Soft, nontender. Normoactive bowel sounds all 4 quadrants. No gua rding or rebound, rigidity, no mass : No CVA tenderness BACK: No cervical, thoracic or lumbar vertebral point tenderness. Patient has normal range of motion. Patient's gait is normal. Muscle strength is 5/5 in upper extremities, patient has normal sensation bilateral upper extremities. No rash, erythema or skin changes. EXTREMITIES: Normal range of motion, no clubbing or edema. Neurovascularly intact NEUROLOGICAL: Cranial nerves II through XII grossly intact. Moving all extremities SKIN: Warm, dry, no petechiae, no rashes or lesions. Initial Vital Signs Initial Vital Signs: Vital Signs Temperature 98.3 F 02/12/22 13:31 Pulse Rate 91 H 02/12/22 13:31 Respiratory Rate 16 02/12/22 13:31 Blood Pressure 188/88 H 02/12/22 13:31 Pulse Oximetry 95 02/12/22 13:31 Oxygen Delivery Method 02/12/22 13:31 Course Orders Ordered: ED Orders 02/12/22 13:38 XR chest 1V Stat EKG-12 Lead Stat 02/12/22 13:49 Complete Blood Count AUTO DIFF Stat Comprehensive Metabolic Panel Stat Lipase Stat Magnesium Stat Troponin & CK Cardiac Panel Stat 02/12/22 16:04 EKG-12 Lead Stat 02/12/22 16:20 Trop I [Troponin I] Stat 02/12/22 16:40 COVID19 -Nasal RAPID/Pre-Proc Stat Vital Signs Vital signs: Vital Signs - 8 hr 02/12/22 13:31 02/12/22 16:57 Temperature 98.3 F Pulse Rate 91 H 70 Respiratory Rate 16 18 Blood Pressure 188/88 H 154/90 H Pulse Oximetry 95 97 Oxygen Delivery Method Room Air Room Air MDM - Chest Pain Lab Data Result diagrams: 02/12/22 13:49 02/12/22 13:49 Labs: Lab Results 02/12/22 02/12/22 02/12/22 Range/Units 13:49 13:49 16:20 WBC 9.2 (4.5-11.0) X10^3/uL RBC 5.24 H (4.0-5.2) X10^6/uL Hgb 15.4 (12.0-16.0) g/dL Hct 44.8 (36-46) % MCV 85.5 (80-100) fL MCH 29.4 (26-34) PG MCHC 34.4 (30-36) % RDW 13.6 (11.6-14.8) % Plt Count 235 (150-400) X10^3/uL Neut % (Auto) 59.9 (50-75) % Lymph % (Auto) 31.8 (25-40) % [place] % (Auto) 7.1 (3-14) % Eos % (Auto) 0.6 L (2-4) % Baso % (Auto) 0.6 (0-2) % Neut # (Auto) 5500 (8987-5948) /uL Lymph # (Auto) 2900 (3260-1671) /uL [place] # (Auto) 700 (0-900) /uL Eos # (Auto) 100 (0-450) /uL Baso # (Auto) 100 (0-100) /uL Sodium 137 (137-145) mmol/L Potassium 4.0 (3.4-5.1) mmol/L Chloride 101 (98-107) mmol/L Carbon Dioxide 27 (22-32) mmol/L BUN 12 (7-17) mg/dL Creatinine 0.58 (0.52-1.04) mg/dL Estimated GFR > 60 (>60) mL/min BUN/Creatinine Ratio 20.7 (6-22) Glucose 211 H (80-110) mg/dL Calcium 9.8 (8.4-10.2) mg/dL Magnesium 1.4 L (1.6-2.3) mg/dL Total Bilirubin 0.8 (0.2-1.3) mg/dL AST 33 (14-36) IU/L ALT 32 (<35) IU/L Alkaline Phosphatase 64 (38-126) U/L Total Creatine Kinase 64 (30-135) U/L CK-MB (CK-2) TNP CK-MB (CK-2) Rel Index TNP Troponin I < 0.012 < 0.012 (0.01-0.034) ng/mL Total Protein 8.4 H (6.3-8.2) g/dL Albumin 4.6 (3.5-5.0) g/dL Globulin 3.8 (1.7-4.1) g/dL Albumin/Globulin Ratio 1.2 (1.0-2.8) Lipase 141 (23-300) U/L SARS-CoV-2 (PCR) (Negative) 02/12/22 Range/Units 16:40 WBC (4.5-11.0) X10^3/uL RBC (4.0-5.2) X10^6/uL Hgb (12.0-16.0) g/dL Hct (36-46) % MCV (80-100) fL MCH (26-34) PG MCHC (30-36) % RDW (11.6-14.8) % Plt Count (150-400) X10^3/uL Neut % (Auto) (50-75) % Lymph % (Auto) (25-40) % [place] % (Auto) (3-14) % Eos % (Auto) (2-4) % Baso % (Auto) (0-2) % Neut # (Auto) (0497-6979) /uL Lymph # (Auto) (5970-7807) /uL [place] # (Auto) (0-900) /uL Eos # (Auto) (0-450) /uL Baso # (Auto) (0-100) /uL Sodium (137-145) mmol/L Potassium (3.4-5.1) mmol/L Chloride (98-107) mmol/L Carbon Dioxide (22-32) mmol/L BUN (7-17) mg/dL Creatinine (0.52-1.04) mg/dL Estimated GFR (>60) mL/min BUN/Creatinine Ratio (6-22) Glucose (80-110) mg/dL Calcium (8.4-10.2) mg/dL Magnesium (1.6-2.3) mg/dL Total Bilirubin (0.2-1.3) mg/dL AST (14-36) IU/L ALT (<35) IU/L Alkaline Phosphatase (38-126) U/L Total Creatine Kinase (30-135) U/L CK-MB (CK-2) CK-MB (CK-2) Rel Index Troponin I (0.01-0.034) ng/mL Total Protein (6.3-8.2) g/dL Albumin (3.5-5.0) g/dL Globulin (1.7-4.1) g/dL Albumin/Globulin Ratio (1.0-2.8) Lipase (23-300) U/L SARS-CoV-2 (PCR) Negative (Negative) Imaging Data Chest x-ray: Radiologist's Impression: Close Chest X-Ray (Signed) Ameena Whitmore - 02/12/[address] (Signed) Adriano Cerda - 01/17/22 Thyroid Ultrasound (Signed) Wang Rosas - 11/28/21 Chest/Abdomen/Pelvis CTA (Signed) Matt Andujar - 11/09/21 Chest/Abdomen X-ray (Signed) Matt Andujar - 11/09/21 Echocardiogram Ultrasound (Signed) Shawn Javier - 01/02/[address] (Signed) Sarkis Shaw - 12/25/18 Chest X-Ray (Signed) Sarkis Shaw - 12/25/18 Soft Tissue Neck X-Ray (Signed) Adi Zhnag - 11/13/18 Abdomen X-Ray (Signed) Adi Zhang - 11/13/18 Chest X-Ray (Signed) Adi Zhang - 11/13/18 Chest X-Ray (Signed) Cipriano Pelayo - 02/16/[address] [address] XRay Report Signed Patient: Rica Fabian MR#: [id number] : 1945 Acct:[id number] Age/Sex: 76 / F Date of Service: 02/12/22 Loc: ED Accession Number: [id number] ?? Procedure: XR chest 1V Ordering Provider: Fernanda Doyle D.O. PROCEDURE:? XR CHEST 1V ? INDICATIONS:? chest pain ? TECHNIQUE:? One view of the chest was acquired.? ? COMPARISON:? [facility], CR, XR CHEST 1V, 12/25/2018, 9:45. ? FINDINGS:? ? Surgical changes and devices:? None.? ? Lungs and pleura:? Lungs are clear.? No pleural effusions or pneumothorax.? ? Mediastinum:? Mediastinal contours appear normal.? Heart size is normal.? ? Bones and chest wall:? No suspicious bony lesions.? Overlying soft tissues appear unremarkable.? ? IMPRESSION:? No acute pulmonary process. ? ? Dictated by: Ameena Whitmore M.D. on 02/12/2022 at 13:58 ? ? Approved by: Ameena Whitmore M.D. on 02/12/2022 at 13:5 ECG Data Attestation: I personally reviewed and interpreted this ECG as follows: Interpretation: Sinus rhythm rate 81 DE 166 QRS of 92 QTC of 429. No acute ST changes appreciated. EKG 2 shows normal sinus rhythm rate of 73 DE 160 QRS of 94 and QTC of 447. No acute ST elevation depression noted. Patient has prior from 01/17/2022 which appears similar. MDM Narrative Medical decision making narrative: This is a 76-year-old female with thoracic back pain extending from shoulder down to the midthoracic region. No obvious rash or shingles. It is not clearly dermatomal. Patient does not have exacerbation with movement. It is not exertional, she does not have any other symptoms appreciated. She describes it more as a burning sensation on the skin. She does have a history of hypertension on diltiazem metoprolol paroxysmal PVCs but no other known cardiac history, symptoms have been present for 3 days without resolution with negative troponin x2 with no acute or dynamic EKG changes, negative chest x-ray, negative COVID and no other clear emergent cause. Discussed with patient would try a course of Neurontin to see if this is helpful discussed return precautions and plan for follow-up outpatient. Discharge Plan Departure Patient Disposition: Home Clinical Impression: Back pain, thoracic Instructions: DI for Thoracic Back Pain Activity Restrictions/Additional Instructions: Please follow-up with your physician for re-check if your symptoms are continuing. You continue with Tylenol up to a 1000 mg every 6 hours as needed. If in adequate you may take Neurontin 1 tablet every 8 hours. This medication is more effective if taken regularly. This can be titrated upwards by primary care. Prescription sent to [facility]. Please return for new rashes or skin changes, new or worsening chest pain, shortness of breath, passing out, persistent vomiting, or other new or concerning symptoms. Prescriptions: New gabapentin [Neurontin] 300 mg capsule 300 mg PO TID Qty: 30 0RF No Action cetirizine [Zyrtec] 10 mg capsule 10 mg PO DAILY (DME) blood sugar diagnostic [FreeStyle Test] strip See Dose Instructions .ROUTE .MEDSUPPLY Qty: 100 0RF Dose Instruction: As directed Rx Instructions: Use to test blood sugars once daily. cholecalciferol (vitamin D3) 5,000 unit capsule 5,000 unit PO DAILY diltiazem HCl 120 mg capsule,extended release 24hr 120 mg PO DAILY Qty: 90 3RF metoprolol succinate 50 mg tablet extended release 24 hr 50 mg PO BID Qty: 180 3RF Shingrix (PF) 50 mcg/0.5 mL suspension for reconstitution 0.5 ml IM ONCE Qty: 1 1RF Rx Instructions: 0.5 mL administered as a 2-dose series at 0 and 2 to 6 months. Eliquis 5 mg tablet 5 mg PO BID Eliquis 5 mg tablet 5 mg PO BID Qty: 60 1RF ketoconazole 2 % cream 1 applic TOP BID Qty: 60 2RF Rx Instructions: use for three more days after clearance diazepam [Valium] 10 mg tablet 10 mg PO DAILY PRN (Reason: flying ) Qty: 5 0RF Label Comments: Takes only when she flies Rx Instructions: Take 1 hour prior to flight (DME) Dexcom G6 Confectionery Maker Misc See Rx Instructions .Route Qty: 1 0RF Rx Instructions: As directed (DME) Dexcom G6 Sensor Device See Rx Instructions .Route Qty: 3 12RF Rx Instructions: As directed (DME) Dexcom G6 Transmitter Device See Rx Instructions .Route Qty: 1 4RF Rx Instructions: As directed melatonin 3 mg Tablet 3 mg PO BEDTIME magnesium 250 mg Tablet 500 mg PO DAILY meclizine 25 mg tablet 25 mg PO DAILY PRN (Reason: dizziness) Qty: 20 0RF meclizine 25 mg tablet,chewable 25 mg PO QID Qty: 20 0RF Referrals: Leeroy Oropeza ARNP [Primary Care Provider] - Visit Report Forms: Patient Portal/API
[2022-02-12 17:15] LABS: Troponin I < 0.012 ng/mL (0.01-0.034)
[2022-02-12 17:26] LABS: COVID19 -Nasal RAPID Negative (Negative)
== END 2022-02-12 18:09 | disposition home or self-care (01) ==
PROVIDERS: Emergency Provider Emergency Medicine; Family Provider Registered Nurse Diabetes Educator; PCP Registered Nurse Diabetes Educator; Referring Provider Internal Medicine Cardiovascular Disease
DX: M54.6 Pain in thoracic spine (principal); R07.9 Chest pain, unspecified; Z20.822 Contact with and (suspected) exposure to COVID-19
CPT/HCPCS: 36415; 71045; 80053; 82550; 83690; 83735; 84484; 85025; 87635; 93005; 99283; 99284; C9803

== ENCOUNTER 2022-03-03 15:15 | Outpatient (RCR) | payer MEDICARE, SELFPAY ==
--- NOTE | 2021-12-04 14:56 | PT.OIE ---
Current Diagnoses Benign paroxysmal vertigo, right ear (12/04/21) Dizziness and giddiness (12/04/21) Past Medical History (Last Reviewed 11/09/21 @ 22:47 by Jose Harper DO) Allergic rhinitis (Unknown) Allergic rhinitis Cataract extraction status of left eye Diabetes (Unknown) Diabetes type 2, controlled Dyslipidemia History of carpal tunnel release (05/2013) Hx of tonsillectomy (Unknown) Hyperlipemia (Unknown) Hypertension (Unknown) Left-sided tinnitus (Unknown) Microalbuminuria SVT (supraventricular tachycardia) (2013) Past Surgical History (Last Reviewed 11/09/21 @ 22:47 by Jose Harper DO) Cataract extraction status of left eye History of carpal tunnel release (05/2013) Hx of hysterectomy (Unknown) Hx of tonsillectomy (Unknown) Visit Care Team Role Provider Type CARLOS Vargas Attending Provider Advanced Hand Buffing Wheel Former Family Provider Primary Care Provider Referring Provider Specialty: Medical Address: [address] [place] [address] Email: [email or web address] Physical Therapy Initial Evaluation PT-OP-A Visit Information Start: 12/04/21 14:41 Freq: Status: Active Protocol: Document 12/04/21 10:30 DCW (Rec: 12/04/21 14:55 DCW [id number]) Out-Patient Physical Therapy Visit Information Visit Information Visit Type Initial Evaluation Visit Start Time 10:30 Visit Stop Time 11:15 Total Visit Minutes 45 Visit Number 1 Number of STUNT PERFORMER Visits 0 Evaluation Information Evaluation Date 12/04/21 PT-OP-B Current Condition Start: 12/04/21 14:41 Freq: Status: Active Protocol: Document 12/04/21 10:30 DCW (Rec: 12/04/21 14:55 DCW [id number]) Current Condition History of Current Condition Onset Date several month history Current Complaints Positional vertigo History of Current Condition Pt is a 76 year old female complaining of a several month history of motion- induced vertigo, as well as occasional general instability when upright. Pt reports vertignous episodes last a few seconds, maybe up to a minute. Symptoms are provoked by turning in bed, or getting up in the morning. Pt denies recent hearing changes, diplopia, dysarthria, discoordination, or decreased mentation/consciousness. Pt reports symptoms are waxing/ waning in nature. Pt does note a history of ( pharmocologically controlled) HTN, long history of tinnitus, and a history of PVC, but denies hyperlipidemia, diabetes, head trauma, seizure , migraines, back/neck problems, CVA, anxiety/panic disorders. Treatment Goals Patient/Caregiver Goals Eliminate dizziness PT-OP-C Subjective Start: 12/04/21 14:41 Freq: Status: Active Protocol: Document 12/04/21 10:30 DCW (Rec: 12/04/21 14:55 DCW [id number]) OP-PT Subjective Patient Comments Patient Comments Therer's not any pain, it's just like there is a lack of equilibrium. Patient Questionnaires Dizziness Handicap Inventory DHI Score 46% DHI Functional Impairment 40 to 59% Impaired (Score 40- 59) PT-OP-O Vestibular Start: 12/04/21 14:41 Freq: Status: Active Protocol: Document 12/04/21 10:30 DCW (Rec: 12/04/21 14:55 DCW [id number]) Vestibular Assessment Auditory Tests Griffin Test Within normal limits Rinne Test Negative Air Conduction Results Left Greater Visual Testing Smooth Pursuits Horizontal Pt experienced difficulty following target Saccades Horizontal WNL Saccades Vertical WNL Heave Test Positive Bilateral Thrust Head Positive Bilateral Positional Testing Janis-Hallpike Positive Right,Negative Left, Upbeating,< 60 Seconds Rolling Test Negative Left,Negative Right PT-OP-Q Treatments Start: 12/04/21 14:41 Freq: Status: Active Protocol: Document 12/04/21 10:30 DCW (Rec: 12/04/21 14:55 DCW [id number]) Canalithic Repositioning BPPV Treatment Wolfgang Affected Canal(s) R posterior Reps x1 Comments Modified Wolfgang PT-OP-T Assessment and Plan Start: 12/04/21 14:41 Freq: Status: Active Protocol: Document 12/04/21 10:30 DCW (Rec: 12/04/21 14:55 DCW [id number]) Physical Therapy Assessment Rehab Potential Rehabilitation Potential Excellent Evaluation Complexity Number of Personal Factors/Comorbidities 1-2 Number of Body Systems Impaired 1-2 Clinical Presentation at Evaluation Unstable Impairments Impairments Balance,Vestibular Goals Two Impairment Positive right Blanchard-Hallpike Short Term Goal (STG) Pt to present with entirely negative positional testing bilaterally to demonstrate resolution of BPPV STG Duration 01/04/22 One Impairment Pt complains of edizziness with positional change Short Term Goal (STG) Pt to report that she does not experience any vertigo with bed mobility STG Duration 01/04/22 Assessment Summary Assessment During right Janis-Hallpike test , pt complained of vertigo and demonstrated very brief up- nystagmus lasting approximately 5 seconds, which appeared to be up-beating but was difficult to determine due to pt repeatedly closing her eyes. Symptoms are largely consistent with diagnosis of right-sided posterior canal BPPV, canalithiasis-type. Pt was treated with a right-sided modified Wolfgang maneuver. Pt complained of symptoms in the first and third position, which is normally indicative of a successful treatment. Further positional testing was negative. Pt was educated on BPPV, expectations for treatment, possible recurrence (BPPV has a ~50% recurrence rate in the five years following treatment), and post -Wolfgang restrictions. Pt to return in ~1 week for a follow -up appointment, and intermittently afterward as indicated for treatment of BPPV. Physical Therapy Plan Frequency and Duration Frequency of Treatment 1-2 x/week Duration of Treatment 6 weeks Plan of Care Start Date 12/04/21 Plan of Care End Date 01/15/22 Therapeutic Interventions Therapeutic Interventions Balance Training,Canalithic Repositioning,Manual Therapy, Therapeutic Activities, Therapeutic Exercises, Vestibular Rehabilitation Next Visit Focus/Plan Next Visit Plan Positional testing, CRM as indicated
--- NOTE | 2021-12-04 14:56 | PT.OPPOC ---
Physical, Occupational & Speech Therapy At [facility] Current Diagnoses Benign paroxysmal vertigo, right ear (12/04/21) Dizziness and giddiness (12/04/21) Visit Care Team Role Provider Type CARLOS Vargas Attending Provider Advanced Property Specialist Family Provider Primary Care Provider Referring Provider Specialty: Medical Address: [address] [place] [address], [facility] Email: [email or web address] Plan Of Care PT-OP-T Assessment and Plan Start: 12/04/21 14:41 Freq: Status: Active Protocol: Document 12/04/21 10:30 DCW (Rec: 12/04/21 14:55 DCW [id number]) Physical Therapy Assessment Rehab Potential Rehabilitation Potential Excellent Evaluation Complexity Number of Personal Factors/Comorbidities 1-2 Number of Body Systems Impaired 1-2 Clinical Presentation at Evaluation Unstable Impairments Impairments Balance,Vestibular Goals Two Impairment Positive right Janis-Hallpike Short Term Goal (STG) Pt to present with entirely negative positional testing bilaterally to demonstrate resolution of BPPV STG Duration 01/04/22 One Impairment Pt complains of edizziness with positional change Short Term Goal (STG) Pt to report that she does not experience any vertigo with bed mobility STG Duration 01/04/22 Assessment Summary Assessment During right Janis-Hallpike test , pt complained of vertigo and demonstrated very brief up- nystagmus lasting approximately 5 seconds, which appeared to be up-beating but was difficult to determine due to pt repeatedly closing her eyes. Symptoms are largely consistent with diagnosis of right-sided posterior canal BPPV, canalithiasis-type. Pt was treated with a right-sided modified Wolfgang maneuver. Pt complained of symptoms in the first and third position, which is normally indicative of a successful treatment. Further positional testing was negative. Pt was educated on BPPV, expectations for treatment, possible recurrence (BPPV has a ~50% recurrence rate in the five years following treatment), and post -Wolfgang restrictions. Pt to return in ~1 week for a follow -up appointment, and intermittently afterward as indicated for treatment of BPPV. Physical Therapy Plan Frequency and Duration Frequency of Treatment 1-2 x/week Duration of Treatment 6 weeks Plan of Care Start Date 12/04/21 Plan of Care End Date 01/15/22 Therapeutic Interventions Therapeutic Interventions Balance Training,Canalithic Repositioning,Manual Therapy, Therapeutic Activities, Therapeutic Exercises, Vestibular Rehabilitation Next Visit Focus/Plan Next Visit Plan Positional testing, CRM as indicated Plan of Care Dates Plan of Care Start Date 12/04/21 Plan of Care End Date 01/15/22 Electronically Signed by: Siva Cline, PT 12/04/21 4507 If you are in agreement with this Plan of Care, please return a signed and dated copy. I have reviewed this Plan of Care and certify that the skilled therapy services above are required to meet the patient?s needs. Physician Signature Date Printed Name and Credentials Clinical Instructor Signature Printed Name and Credentials
--- NOTE | 2021-12-15 15:48 | PT.OTN ---
Current Diagnoses Benign paroxysmal vertigo, right ear (12/15/21) Physical Therapy Treatment Note PT-OP-A Visit Information Start: 12/04/21 14:41 Freq: Status: Active Protocol: Document 12/15/21 15:15 DCW (Rec: 12/15/21 15:48 DCW [id number]) Out-Patient Physical Therapy Visit Information Visit Information Visit Type Treatment Note Visit Start Time 15:15 Visit Stop Time 15:42 Total Visit Minutes 27 Visit Number 2 Number of DRAPERY CUTTER MACHINE Visits 0 Evaluation Information Evaluation Date 12/04/21 PT-OP-B Current Condition Start: 12/04/21 14:41 Freq: Status: Active Protocol: Document 12/04/21 10:30 DCW (Rec: 12/04/21 14:55 DCW [id number]) Current Condition History of Current Condition Onset Date several month history Current Complaints Positional vertigo History of Current Condition Pt is a 76 year old female complaining of a several month history of motion- induced vertigo, as well as occasional general instability when upright. Pt reports vertignous episodes last a few seconds, maybe up to a minute. Symptoms are provoked by turning in bed, or getting up in the morning. Pt denies recent hearing changes, diplopia, dysarthria, discoordination, or decreased mentation/consciousness. Pt reports symptoms are waxing/ waning in nature. Pt does note a history of ( pharmocologically controlled) HTN, long history of tinnitus, and a history of PVC, but denies hyperlipidemia, diabetes, head trauma, seizure , migraines, back/neck problems, CVA, anxiety/panic disorders. Treatment Goals Patient/Caregiver Goals Eliminate dizziness PT-OP-C Subjective Start: 12/04/21 14:41 Freq: Status: Active Protocol: Document 12/15/21 15:15 DCW (Rec: 12/15/21 15:48 DCW [id number]) OP-PT Subjective Patient Comments Patient Comments I was here , Wednesday I felt pretty good, then Wednesday and Wednesday I felt better than I had in years, but waking up Wednesday, I could tell I was dizzy before I even opened my eyes. PT-OP-O Vestibular Start: 12/04/21 14:41 Freq: Status: Active Protocol: Document 12/15/21 15:15 DCW (Rec: 12/15/21 15:48 DCW [id number]) Vestibular Assessment Positional Testing Janis-Hallpike Positive Left,Negative Right,< 60 Seconds Rolling Test Negative Left,Negative Right PT-OP-Q Treatments Start: 12/04/21 14:41 Freq: Status: Active Protocol: Document 12/15/21 15:15 DCW (Rec: 12/15/21 15:48 DCW [id number]) Manual Therapy Treatment Other Other Manual Treatments Positional testing Canalithic Repositioning BPPV Treatment Wolfgang Affected Canal(s) L posterior Reps x1 Comments Modified Wolfgang PT-OP-T Assessment and Plan Start: 12/04/21 14:41 Freq: Status: Active Protocol: Document 12/15/21 15:15 DCW (Rec: 12/15/21 15:48 DCW [id number]) Physical Therapy Assessment Impairments Impairments Balance,Vestibular Goals Two Impairment Positive right Marcus-Hallpike Short Term Goal (STG) Pt to present with entirely negative positional testing bilaterally to demonstrate resolution of BPPV STG Duration 01/04/22 One Impairment Pt complains of dizziness with positional change Short Term Goal (STG) Pt to report that she does not experience any vertigo with bed mobility STG Duration 01/04/22 Assessment Summary Assessment During L Janis-Hallpike today, pt complained of spinning, but showed no nystagmus. Left Wolfgang was performed, pt symptomatic in the first and third position. Further testing was negative. Physical Therapy Plan Frequency and Duration Frequency of Treatment 1-2 x/week Duration of Treatment 6 weeks Plan of Care Start Date 12/04/21 Plan of Care End Date 01/15/22 Therapeutic Interventions Therapeutic Interventions Balance Training,Canalithic Repositioning,Manual Therapy, Therapeutic Activities, Therapeutic Exercises, Vestibular Rehabilitation Next Visit Focus/Plan Next Visit Plan Positional testing, CRM as indicated
--- NOTE | 2022-01-20 13:09 | PT.OTN ---
Current Diagnoses Benign paroxysmal vertigo, right ear (01/20/22) Physical Therapy Treatment Note PT-OP-A Visit Information Start: 12/04/21 14:41 Freq: Status: Active Protocol: Document 01/20/22 09:02 AMB (Rec: 01/20/22 09:57 AMB [id number]) Out-Patient Physical Therapy Visit Information Visit Information Visit Type Treatment Note Visit Start Time 09:02 Visit Stop Time 09:45 Total Visit Minutes 40 Visit Number 3 Number of [employer] Visits 0 PT-OP-B Current Condition Start: 12/04/21 14:41 Freq: Status: Active Protocol: Document 12/04/21 10:30 DCW (Rec: 12/04/21 14:55 DCW [id number]) Current Condition History of Current Condition Onset Date several month history Current Complaints Positional vertigo History of Current Condition Pt is a 76 year old female complaining of a several month history of motion- induced vertigo, as well as occasional general instability when upright. Pt reports vertignous episodes last a few seconds, maybe up to a minute. Symptoms are provoked by turning in bed, or getting up in the morning. Pt denies recent hearing changes, diplopia, dysarthria, discoordination, or decreased mentation/consciousness. Pt reports symptoms are waxing/ waning in nature. Pt does note a history of ( pharmocologically controlled) HTN, long history of tinnitus, and a history of PVC, but denies hyperlipidemia, diabetes, head trauma, seizure , migraines, back/neck problems, CVA, anxiety/panic disorders. Treatment Goals Patient/Caregiver Goals Eliminate dizziness PT-OP-C Subjective Start: 12/04/21 14:41 Freq: Status: Active Protocol: Document 01/20/22 09:02 AMB (Rec: 01/20/22 09:57 AMB [id number]) OP-PT Subjective Patient Comments Patient Comments Went to the ER a couple of days ago, given fluids and meclizine. Does report sharp stabbing pain in the left ear and new onset tinnitus, spinning room on Wednesday was almost constant. PT-OP-O Vestibular Start: 12/04/21 14:41 Freq: Status: Active Protocol: Document 12/15/21 15:15 DCW (Rec: 12/15/21 15:48 DCW [id number]) Vestibular Assessment Positional Testing [place]-Hallpike Positive Left,Negative Right,< 60 Seconds Rolling Test Negative Left,Negative Right PT-OP-Q Treatments Start: 12/04/21 14:41 Freq: Status: Active Protocol: Document 01/20/22 09:02 AMB (Rec: 01/20/22 09:57 AMB [id number]) Neuro Re-Education Treatment Other Activities 1 Details Pt education/ testing Comments supine roll test, R and L DixHallpike. Extensive education in BPPV, pt has questions regarding ways to prevent, medication, vestibular therapy, home treatment etc. PT-OP-T Assessment and Plan Start: 12/04/21 14:41 Freq: Status: Active Protocol: Document 01/20/22 09:02 AMB (Rec: 01/20/22 09:57 AMB [id number]) Physical Therapy Assessment Goals Two Impairment Positive right Jan[place]-Hallpike Short Term Goal (STG) Pt to present with entirely negative positional testing bilaterally to demonstrate resolution of BPPV STG Duration 01/04/22 One Impairment Pt complains of edizziness with positional change Short Term Goal (STG) Pt to report that she does not experience any vertigo with bed mobility STG Duration 01/04/22 Assessment Summary Assessment No nystagmus with R/L [place]- Hallpike, horizontal testing. Pt reports overall spinning has resolved but still feels off after a significant increase in symptoms over the weekend. Had previously been feeling good after last PT treatment one month ago. While there was no dizziness or nystagmus with positional testing today, it is plausable that she had a return of sx that then self corrected. If this is the case then would recommend PT in the future if sx return again and possible follow up with ENT if this continues to be probelmatic. Will put pt on hold for 8 weeks to further assess return of symptoms. Physical Therapy Plan Frequency and Duration Frequency of Treatment 1x/Week Duration of Treatment 8 WEEKS Plan of Care Start Date 01/20/22 Plan of Care End Date 03/20/22 Therapeutic Interventions Therapeutic Interventions Balance Training,Canalithic Repositioning,Manual Therapy, Neuromuscular Re-education, Therapeutic Activities, Therapeutic Exercises, Vestibular Rehabilitation Next Visit Focus/Plan Next Visit Plan Positional testing, CRM as indicated
--- NOTE | 2022-01-20 13:09 | PT.OPPOC ---
Physical, Occupational & Speech Therapy At [facility] Current Diagnoses Benign paroxysmal vertigo, right ear (01/20/22) Visit Care Team Role Provider Type CARLOS Vargas Attending Provider Advanced Arts Education Teacher Family Provider Primary Care Provider Referring Provider Specialty: Medical Address: [address] [place] [address], [facility] Email: [email or web address] Plan Of Care PT-OP-T Assessment and Plan Start: 12/04/21 14:41 Freq: Status: Active Protocol: Document 01/20/22 09:02 AMB (Rec: 01/20/22 09:57 AMB [id number]) Physical Therapy Assessment Goals Two Impairment Positive right Janis-Hallpike Short Term Goal (STG) Pt to present with entirely negative positional testing bilaterally to demonstrate resolution of BPPV STG Duration 01/04/22 One Impairment Pt complains of edizziness with positional change Short Term Goal (STG) Pt to report that she does not experience any vertigo with bed mobility STG Duration 01/04/22 Assessment Summary Assessment No nystagmus with R/L [place]- Hallpike, horizontal testing. Pt reports overall spinning has resolved but still feels off after a significant increase in symptoms over the weekend. Had previously been feeling good after last PT treatment one month ago. While there was no dizziness or nystagmus with positional testing today, it is plausable that she had a return of sx that then self corrected. If this is the case then would recommend PT in the future if sx return again and possible follow up with ENT if this continues to be probelmatic. Will put pt on hold for 8 weeks to further assess return of symptoms. Physical Therapy Plan Frequency and Duration Frequency of Treatment 1x/Week Duration of Treatment 8 WEEKS Plan of Care Start Date 01/20/22 Plan of Care End Date 03/20/22 Therapeutic Interventions Therapeutic Interventions Balance Training,Canalithic Repositioning,Manual Therapy, Neuromuscular Re-education, Therapeutic Activities, Therapeutic Exercises, Vestibular Rehabilitation Next Visit Focus/Plan Next Visit Plan Positional testing, CRM as indicated Plan of Care Dates Plan of Care Start Date 01/20/22 Plan of Care End Date 03/20/22 Electronically Signed by: Larissa Dobbs, PT 01/20/22 [id number] If you are in agreement with this Plan of Care, please return a signed and dated copy. I have reviewed this Plan of Care and certify that the skilled therapy services above are required to meet the patient?s needs. Physician Signature Date Printed Name and Credentials Clinical Instructor Signature Printed Name and Credentials
--- NOTE | 2022-03-03 15:52 | PT.OTN ---
Current Diagnoses Benign paroxysmal vertigo, right ear (03/03/22) Physical Therapy Treatment Note PT-OP-A Visit Information Start: 12/04/21 14:41 Freq: Status: Active Protocol: Document 03/03/22 15:15 DCW (Rec: 03/03/22 15:52 DCW [id number]) Out-Patient Physical Therapy Visit Information Visit Information Visit Type Treatment Note Visit Start Time 15:15 Visit Stop Time 15:46 Total Visit Minutes 31 Visit Number 4 Number of ER NURSE Visits 0 Evaluation Information Evaluation Date 12/04/21 PT-OP-B Current Condition Start: 12/04/21 14:41 Freq: Status: Active Protocol: Document 12/04/21 10:30 DCW (Rec: 12/04/21 14:55 DCW [id number]) Current Condition History of Current Condition Onset Date several month history Current Complaints Positional vertigo History of Current Condition Pt is a 76 year old female complaining of a several month history of motion- induced vertigo, as well as occasional general instability when upright. Pt reports vertignous episodes last a few seconds, maybe up to a minute. Symptoms are provoked by turning in bed, or getting up in the morning. Pt denies recent hearing changes, diplopia, dysarthria, discoordination, or decreased mentation/consciousness. Pt reports symptoms are waxing/ waning in nature. Pt does note a history of ( pharmocologically controlled) HTN, long history of tinnitus, and a history of PVC, but denies hyperlipidemia, diabetes, head trauma, seizure , migraines, back/neck problems, CVA, anxiety/panic disorders. Treatment Goals Patient/Caregiver Goals Eliminate dizziness PT-OP-C Subjective Start: 12/04/21 14:41 Freq: Status: Active Protocol: Document 03/03/22 15:15 DCW (Rec: 03/03/22 15:52 DCW [id number]) OP-PT Subjective Patient Comments Patient Comments I woke up today with the world spinning. Notes it always occurs when she first gets out of bed. Has had difficulty off and on since last visit, but today was much worse. PT-OP-O Vestibular Start: 12/04/21 14:41 Freq: Status: Active Protocol: Document 12/15/21 15:15 DCW (Rec: 12/15/21 15:48 DCW [id number]) Vestibular Assessment Positional Testing Saxis-Hallpike Positive Left,Negative Right,< 60 Seconds Rolling Test Negative Left,Negative Right PT-OP-Q Treatments Start: 12/04/21 14:41 Freq: Status: Active Protocol: Document 03/03/22 15:15 DCW (Rec: 03/03/22 15:52 DC [id number]) Canalithic Repositioning BPPV Treatment Wolfgang Affected Canal(s) L posterior Reps x1 Comments Modified Wolfgang PT-OP-T Assessment and Plan Start: 12/04/21 14:41 Freq: Status: Active Protocol: Document 03/03/22 15:15 DCW (Rec: 03/03/22 15:52 DC [id number]) Physical Therapy Assessment Goals Two Impairment Positive right Janis-Hallpike Short Term Goal (STG) Pt to present with entirely negative positional testing bilaterally to demonstrate resolution of BPPV STG Duration 03/20/22 One Impairment Pt complains of edizziness with positional change Short Term Goal (STG) Pt to report that she does not experience any vertigo with bed mobility STG Duration 03/20/22 Assessment Summary Assessment Pt reported vertigo lasting ~ 15 seconds in left hallpike, no visible nystagmus. Due to pt's history, modified Wolfgang performed anyway, pt felt much better afterward, noted improved stability on her feet . Recommend follow-up next week for further testing/CRM. Physical Therapy Plan Frequency and Duration Frequency of Treatment 1x/Week Duration of Treatment 8 WEEKS Plan of Care Start Date 01/20/22 Plan of Care End Date 03/20/22 Therapeutic Interventions Therapeutic Interventions Balance Training,Canalithic Repositioning,Manual Therapy, Neuromuscular Re-education, Therapeutic Activities, Therapeutic Exercises, Vestibular Rehabilitation Next Visit Focus/Plan Next Visit Plan Positional testing, CRM as indicated
--- NOTE | 2022-05-19 10:20 | PT.OPDS ---
Current Diagnoses Benign paroxysmal vertigo, right ear (03/03/22) Visit Care Team Role Provider Type CARLOS Vargas Family Provider Advanced [employer] Journalist Primary Care Provider Specialty: Medical Address: [address] [place] [address], [address] Email: [email or web address] Charles Medeiros MD Attending Provider Physician Referring Provider Specialty: Ear, Nose, Throat Address: [address] [place] [address], [id number] Email: [email or web address] Visit Number Visit Number 4 Discharge Summary PT-OP-B Current Condition Start: 12/04/21 14:41 Freq: Status: Active Protocol: Document 12/04/21 10:30 DCW (Rec: 12/04/21 14:55 DCW [id number]) Current Condition History of Current Condition Onset Date several month history Current Complaints Positional vertigo History of Current Condition Pt is a 76 year old female complaining of a several month history of motion- induced vertigo, as well as occasional general instability when upright. Pt reports vertignous episodes last a few seconds, maybe up to a minute. Symptoms are provoked by turning in bed, or getting up in the morning. Pt denies recent hearing changes, diplopia, dysarthria, discoordination, or decreased mentation/consciousness. Pt reports symptoms are waxing/ waning in nature. Pt does note a history of ( pharmocologically controlled) HTN, long history of tinnitus, and a history of PVC, but denies hyperlipidemia, diabetes, head trauma, seizure , migraines, back/neck problems, CVA, anxiety/panic disorders. Treatment Goals Patient/Caregiver Goals Eliminate dizziness PT-OP-C Subjective Start: 12/04/21 14:41 Freq: Status: Active Protocol: Document 03/03/22 15:15 DCW (Rec: 03/03/22 15:52 DCW [id number]) OP-PT Subjective Patient Comments Patient Comments I woke up today with the world spinning. Notes it always occurs when she first gets out of bed. Has had difficulty off and on since last visit, but today was much worse. PT-OP-O Vestibular Start: 12/04/21 14:41 Freq: Status: Active Protocol: Document 12/15/21 15:15 DCW (Rec: 12/15/21 15:48 DCW [id number]) Vestibular Assessment Positional Testing Strong-Hallpike Positive Left,Negative Right,< 60 Seconds Rolling Test Negative Left,Negative Right PT-OP-T Assessment and Plan Start: 12/04/21 14:41 Freq: Status: Active Protocol: Document 05/19/22 10:19 DCW (Rec: 05/19/22 10:20 DCW [id number]) Physical Therapy Assessment Assessment Summary Assessment Pt canceled last scheduled appointment, has now not been seen in more than two months. Pt will be discharged from skilled therapy at this time, will require a new referral in order to return. Physical Therapy Plan Discharge Physical Therapy Discharge Reasons No Longer Attending PT
== END 2022-05-21 14:13 | disposition home or self-care (01) ==
LOC: PHYS 15:15
PROVIDERS: Family Provider Registered Nurse Diabetes Educator; PCP Registered Nurse Diabetes Educator; Referring Provider Otolaryngology; Visit Provider Otolaryngology
DX: H81.11 Benign paroxysmal vertigo, right ear (principal)
CPT/HCPCS: 95992; 97112; 97140; 97161

== ENCOUNTER → 2022-03-11 15:34 | Outpatient (CLI) | payer MEDICARE, SELFPAY ==
[2022-03-11 17:30] LABS: Vitamin B12 Reflex MMA if <400 766 pg/mL (239-931)
== END ==
PROVIDERS: Family Provider Registered Nurse Diabetes Educator; PCP Registered Nurse Diabetes Educator; Referring Provider Registered Nurse Diabetes Educator; Visit Provider Registered Nurse Diabetes Educator
DX: L60.8 Other nail disorders (principal)
CPT/HCPCS: 36415; 82607

== ENCOUNTER → 2022-07-01 14:07 | Outpatient (CLI) | payer MEDICARE, SELFPAY ==
[2022-07-01 14:47] LABS: Add Manual Diff / Slide Review NO; Basophils Absolute Auto 0 /uL (0-100); Basophils Percent Auto 0.6 % (0-2); Eosinophils Absolute Auto 100 /uL (0-450); Eosinophils Percent Auto 1.4 % (2-4); Hemoglobin 15.2 g/dL (12.0-16.0); Lymphocytes Absolute Auto 2900 /uL (1100-4500); Lymphocytes Percent Auto 34.1 % (25-40); Mean Corpuscular HGB Conc 33.1 % (30-36); Mean Corpuscular Hemoglobin 28.5 PG (26-34); Mean Corpuscular Volume 86.2 fL (80-100); Monocytes Absolute Auto 600 /uL (0-900); Monocytes Percent Auto 6.8 % (3-14); Neutrophils Absolute Auto 4900 /uL (1500-7000); Neutrophils Percent Auto 57.1 % (50-75); Platelet Count 274 X10^3/uL (150-400); Red Blood Cell Count 5.34 X10^6/uL (4.0-5.2); Red Cell Distribution Width 13.7 % (11.6-14.8); White Blood Cell Count 8.5 X10^3/uL (4.5-11.0)
[2022-07-01 15:08] LABS: Hemoglobin A1C% w Est Avg Glu 12.7 % (4.0-6.0)
[2022-07-01 15:14] LABS: Alanine Aminotransferase 38 IU/L (<35); Albumin 4.6 g/dL (3.5-5.0); Albumin Globulin Ratio 1.4 (1.0-2.8); Alkaline Phosphatase 64 U/L (38-126); Aspartate Aminotransferase 33 IU/L (14-36); BUN Creatinine Ratio 26.3 (6-22); Bilirubin Total 0.7 mg/dL (0.2-1.3); Blood Urea Nitrogen 15 mg/dL (7-17); Calcium 9.8 mg/dL (8.4-10.2); Carbon Dioxide 29 mmol/L (22-32); Chloride 93 mmol/L (98-107); Estimated Glomerular Filt Rate > 60 mL/min (>60); Globulin 3.4 g/dL (1.7-4.1); Glucose 350 mg/dL (80-110); HEMOLYSIS < 15 (0-50); Lipase 189 U/L (23-300); Potassium 4.5 mmol/L (3.4-5.1); Sodium 134 mmol/L (137-145)
[2022-07-01 15:24] LABS: Erythrocyte Sedimentation Rate 6 MM/HR (0-20)
[2022-07-01 15:40] LABS: TSH w/ Reflex to FT4 1.25 uIU/mL (0.47-4.68)
[2022-07-01 16:52] LABS: Appearance Urine UA CLEAR; Bilirubin Urine UA NEGATIVE (NEGATIVE); Color Urine UA YELLOW; Glucose Urine UA 3+ g/dL (Negative); Ketones Urine UA NEGATIVE (NEGATIVE); Leukocyte Esterase Urine UA NEGATIVE (NEGATIVE); Nitrite Urine UA NEGATIVE (Negative); Occult Blood Urine UA TRACE-LYSED (Negative); Protein Urine UA NEGATIVE (Negative); Specific Gravity Urine UA <=1.005 (1.000-1.035); Urobilinogen Urine UA 0.2 E.U./dL (0.2)
[2022-07-01 16:53] LABS: pH Urine UA 5.5 (4.5-8.0)
[2022-07-01 17:16] LABS: Bacteria Urine Few (2-10); Culture Indicated Urine Cult Not Indicated; RBC Urine 0-1/HPF (0-5/HPF); Squamous Epithelial Cell Urine 0-1 /HPF (0-5/HPF); WBC Urine 0-1/HPF (0-5/HPF)
== END ==
PROVIDERS: Family Provider Registered Nurse Diabetes Educator; PCP Registered Nurse Diabetes Educator; Referring Provider Registered Nurse Diabetes Educator; Visit Provider Registered Nurse Diabetes Educator
DX: E11.9 Type 2 diabetes mellitus without complications (principal); R11.0 Nausea; R42 Dizziness and giddiness; R53.83 Other fatigue
CPT/HCPCS: 36415; 80053; 81001; 83036; 83690; 84443; 85025; 85651

== ENCOUNTER → 2022-10-09 14:31 | Outpatient (CLI) | payer MEDICARE, SELFPAY ==
[2022-10-09 15:57] LABS: Magnesium 1.2 mg/dL (1.6-2.3)
[2022-10-10 09:36] LABS: Labcorp Hemoglobin (Hb) A1c 8.8 % (4.8-5.6)
== END ==
PROVIDERS: Family Provider Registered Nurse Diabetes Educator; PCP Registered Nurse Diabetes Educator; Referring Provider Registered Nurse Diabetes Educator; Visit Provider Registered Nurse Diabetes Educator
DX: E83.42 Hypomagnesemia; R73.9 Hyperglycemia, unspecified
CPT/HCPCS: 83036; 83735

== ENCOUNTER → 2022-11-05 10:57 | Outpatient (CLI) | payer MEDICARE, SELFPAY ==
[2022-11-05 12:03] LABS: Creatinine Urine Random 187.2 mg/dL
[2022-11-05 12:08] LABS: Microalbumi Creatinin Ratio Ur 95.6 ug/mg CR (<30); Microalbumin Urine Random 17.9 mg/dL (0-1.6)
== END ==
PROVIDERS: Family Provider Registered Nurse Diabetes Educator; PCP Registered Nurse Diabetes Educator; Referring Provider Registered Nurse Diabetes Educator; Visit Provider Registered Nurse Diabetes Educator
DX: E11.9 Type 2 diabetes mellitus without complications (principal); I10 Essential (primary) hypertension; R80.9 Proteinuria, unspecified
CPT/HCPCS: 82043; 82570

== ENCOUNTER → 2023-04-13 10:42 | Outpatient (CLI) | payer MEDICARE, SELFPAY ==
[2023-04-13 11:54] LABS: Hematocrit 42.9 % (36-46); Hemoglobin 14.6 g/dL (12.0-16.0); Mean Corpuscular HGB Conc 34.1 % (30-36); Mean Corpuscular Hemoglobin 29.4 PG (26-34); Mean Corpuscular Volume 86.1 fL (80-100); Platelet Count 250 X10^3/uL (150-400); Red Blood Cell Count 4.98 X10^6/uL (4.0-5.2); Red Cell Distribution Width 13.5 % (11.6-14.8); White Blood Cell Count 7.4 X10^3/uL (4.5-11.0)
[2023-04-13 12:03] LABS: Hemoglobin A1C% w Est Avg Glu 7.5 % (4.0-6.0)
[2023-04-13 12:41] LABS: Alanine Aminotransferase 25 IU/L (<35); Albumin 4.3 g/dL (3.5-5.0); Albumin Globulin Ratio 1.2 (1.0-2.8); Alkaline Phosphatase 52 U/L (38-126); Aspartate Aminotransferase 28 IU/L (14-36); Bilirubin Total 0.6 mg/dL (0.2-1.3); Blood Urea Nitrogen 13 mg/dL (7-17); Calcium 9.8 mg/dL (8.4-10.2); Carbon Dioxide 32 mmol/L (22-32); Chloride 96 mmol/L (98-107); Cholesterol 212 mg/dL (140-199); Estimated Glomerular Filt Rate > 60 mL/min (>60); Globulin 3.5 g/dL (1.7-4.1); Glucose 182 mg/dL (80-110); HDL Cholesterol 51 mg/dL (40-60); HEMOLYSIS < 15 (0-50); LDL Cholesterol Calculated 112 mg/dL (<100); Magnesium 1.5 mg/dL (1.6-2.3); Sodium 136 mmol/L (137-145); TSH w/ Reflex to FT4 1.94 uIU/mL (0.47-4.68); Total Protein 7.8 g/dL (6.3-8.2); Triglycerides 247 mg/dL (35-150)
== END ==
PROVIDERS: Family Provider Registered Nurse Diabetes Educator; PCP Registered Nurse Diabetes Educator; Referring Provider Registered Nurse Diabetes Educator; Visit Provider Registered Nurse Diabetes Educator
DX: E11.9 Type 2 diabetes mellitus without complications (principal); E83.42 Hypomagnesemia; E78.5 Hyperlipidemia, unspecified; R80.9 Proteinuria, unspecified; I10 Essential (primary) hypertension
CPT/HCPCS: 36415; 80053; 80061; 83036; 83735; 84443; 85027

== ENCOUNTER → 2023-04-15 09:05 | Outpatient (CLI) | payer MEDICARE, SELFPAY ==
[2023-04-15 09:59] LABS: Creatinine Urine Random 28.5 mg/dL
[2023-04-15 10:17] LABS: Microalbumi Creatinin Ratio Ur 31.5 ug/mg CR (<30); Microalbumin Urine Random 0.9 mg/dL (0-1.6)
== END ==
PROVIDERS: Family Provider Registered Nurse Diabetes Educator; PCP Registered Nurse Diabetes Educator; Referring Provider Registered Nurse Diabetes Educator; Visit Provider Registered Nurse Diabetes Educator
DX: E78.5 Hyperlipidemia, unspecified (principal); E11.9 Type 2 diabetes mellitus without complications; R80.9 Proteinuria, unspecified; I10 Essential (primary) hypertension
CPT/HCPCS: 82043; 82570

== ENCOUNTER → 2023-10-12 13:33 | Outpatient (CLI) | payer MEDICARE, SELFPAY ==
--- NOTE | 2023-10-12 | DI.ECHO.S_ITS ---
[facility] +---------+ : : [address] : : : : [id number] : : : : Phone: [phone]---------+ Echocardiogram Report + + :Name: HAMILTON WINTERS Study Date: 10/12/2023 Height: 66 in : :[facility] ReadingLocation: Weight: 189 lb : : Gender: Female BSA: 2.0 m2 : :: 1945 Age: 78 yrs BP: 149/84 mmHg: :Reason For Study: DIZZINESS AND GIDDINESS : :Ordering Physician: ASHKAN, : :ANITRA Performed By: Steven Littlejohn : :Referring: ANITRA LUTHER : + + Interpretation Summary The left ventricle is normal in size. The left ventricular ejection fraction is normal. The ejection fraction is estimated to be 65-70%. The right ventricle is normal in size and function. There appears to be borderline prolapse of posterior mitral leaflet without any significant thickening or calcification. There is mild mitral regurgitation. Compared to the prior echo study, there has been no change in the severity of mitral regurgitation. Right ventricular systolic pressure is estimated to be 29.5 mmHg plus the clinically estimated CVP which cannot be estimated on this exam. Procedure: A two-dimensional transthoracic echocardiogram with color flow and Doppler was performed. The study quality was technically adequate. Comparison is made with the echocardiogram of 01/02/2021. The patient was in normal sinus rhythm during the exam. Left Ventricle: The left ventricle is normal in size. Proximal septal thickening is noted. There is no thrombus. The ejection fraction is estimated to be 65-70%. The left ventricular ejection fraction is normal. There are no focal wall motion abnormalities. Diastolic parameters suggest a relaxation abnormality of the left ventricle, consistent with probable normal filling pressures. Right Ventricle: The right ventricle is normal in size and function. The right ventricular systolic function is normal. Atria: The left atrial size is normal. The left atrium has mildly decreased in size since the prior echo exam. Right atrial size is normal. The interatrial septum grossly appears intact with no obvious evidence for an atrial septal defect. Mitral Valve: MAC. There appears to be borderline prolapse of posterior mitral leaflet without any significant thickening or calcification. There is no mitral valve stenosis. There is mild mitral regurgitation. Compared to the prior echo study, there has been no change in the severity of mitral regurgitation. Aortic Valve: The aortic valve is trileaflet. The aortic valve opens well. There is no aortic valve stenosis. No aortic regurgitation is present. Tricuspid Valve: The tricuspid valve is normal in structure and function. There is no tricuspid stenosis. There is trace tricuspid regurgitation. Right ventricular systolic pressure is estimated to be 29.5 mmHg plus the clinically estimated CVP which cannot be estimated on this exam. Pulmonic Valve: The pulmonic valve is not well visualized. There is no pulmonic valvular stenosis. There is no pulmonic valvular regurgitation. Great Vessels: The aortic root is borderline dilated. The ascending aorta is at the upper limits of normal in size. The inferior vena cava was not visualized. Pericardium/ Pleura There is no pericardial effusion. There is no pleural effusion. MMode/2D Measurements & Calculations LVIDd: 4.6 cm LVOT diam: 2.1 cm LVIDs: 3.0 cm Ao root diam: 3.7 cm FS: 35.8 % asc Aorta Diam: 3.7 cm IVSd: 1.1 cm LVPWd: 1.0 cm LV martin. diameter/BSA (cm/m^2): 2.4 LV sys. diameter/BSA (cm/m^2): 1.5 LA A2 area: 17.5 cm2 RA long axis: 4.3 cm LA A4 area: 15.2 cm2 RA area: 10.8 cm2 LA length (vol): 4.7 cm RA vol: 23.1 ml LA vol: 47.5 ml RA : 11.8 ml/m2 LA vol index: 24.3 ml/m2 RVD1 (basal): 3.2 cm RVD2 (mid): 2.8 cm TAPSE: 1.9 cm Doppler Measurements & Calculations Ao V2 max: 99.7 cm/sec LVOT Max Papa: 89.5 cm/sec Ao V2 mean: 67.6 cm/sec LV V1 max P.2 mmHg Ao max P.0 mmHg LV V1 VTI: 17.1 cm Ao mean P.1 mmHg BRSIEIDA(I,D): 3.3 cm2 Ao V2 VTI: 18.3 cm BRISEIDA(V,D): 3.2 cm2 sev ratio: 0.94 BRISEIDA indexed to BSA (cm^2/m^2): 1.7 MV E max papa: 43.1 cm/sec TR max papa: 271.8 cm/sec MV A max papa: 66.5 cm/sec TR max P.5 mmHg MV E/A: 0.65 PA V2 max: 94.6 cm/sec Med Peak E' Papa: 5.0 cm/sec PA V2 mean: 69.3 cm/sec E/E' med: 8.6 PA mean P.1 mmHg Lat Peak E' Papa: 5.3 cm/sec PA pr(Accel): 44.7 mmHg E/E' lat: 8.2 E/e' average: 8.4 MV dec time: 0.11 sec SV(LVOT): 60.3 ml Reading Physician:01:15 PM
== END ==
PROVIDERS: Family Provider Registered Nurse Diabetes Educator; PCP Registered Nurse Diabetes Educator; Referring Provider Internal Medicine Cardiovascular Disease; Visit Provider Internal Medicine Cardiovascular Disease
DX: I34.1 Nonrheumatic mitral (valve) prolapse (principal); R42 Dizziness and giddiness; I34.0 Nonrheumatic mitral (valve) insufficiency
CPT/HCPCS: 93306

== ENCOUNTER → 2023-11-11 09:34 | Outpatient (CLI) | payer MEDICARE, SELFPAY ==
[2023-11-11 14:06] LABS: BUN Creatinine Ratio 28.6 (6-22); Blood Urea Nitrogen 16 mg/dL (7-17); Calcium 9.8 mg/dL (8.4-10.2); Carbon Dioxide 31 mmol/L (22-32); Chloride 101 mmol/L (98-107); Estimated Glomerular Filt Rate > 60 mL/min (>60); Glucose 250 mg/dL (80-110); Magnesium 1.6 mg/dL (1.6-2.3); Potassium 4.5 mmol/L (3.4-5.1); Sodium 137 mmol/L (137-145)
[2023-11-11 14:19] LABS: HEMOLYSIS 65 (0-50)
[2023-11-11 17:58] LABS: Thyroid Stimulating Hormone 0.973 uIU/mL (0.47-4.68)
--- NOTE | 2023-11-12 02:15 | DI.NM.S_ITS ---
DATE OF SERVICE: 11/11/2023 PROCEDURE PERFORMED: Pharmacologic vasodilator stress and rest myocardial perfusion imaging with gating to assess ejection fraction and regional wall motion. ORDERING PROVIDER: Shawn Javier MD INDICATIONS: The patient is a 78-year-old female with a history of paroxysmal atrial fibrillation, SVT, and dizziness. CARDIAC STRESS: Per protocol, 0.4 mg of regadenoson was infused with a normal hemodynamic response. She was walked on the treadmill for additional stress. With this, she had no chest discomfort or other anginal symptoms. Her resting ECG showed sinus rhythm with nonspecific ST and T-wave abnormalities, predominantly in the inferolateral leads, that remain unchanged with stress. There were no arrhythmias. Per protocol, 24.4 millicuries of technetium-99m Myoview was injected and she was imaged 15 minutes later using a gated SPECT acquisition protocol. Earlier in the day while at rest, she had been injected with 12.4 millicuries of technetium-99m Myoview and was imaged 15 minutes later, again using a gated SPECT acquisition protocol. FINDINGS: 1. Raw Data: There is fair myocardial tracer uptake with moderate breast shadows noted that clearly produce some attenuation. The lung/heart ratio is normal at 0.27 with a normal TID ratio of 0.91. 2. Quantitated gated SPECT: Post-stress ejection fraction is estimated at 88% without any focal wall motion abnormality and specifically the inferior wall has brisk contractility. The ejection fraction is likely an overestimate because of relatively small left ventricular volumes. The resting ejection fraction is estimated at 91%, again likely an overestimate, with a fairly small resting end-diastolic volume of 79 mL. 3. Myocardial Perfusion Imaging: Post-stress supine images show a fairly normal myocardial perfusion pattern with a subtle defect in the proximal to mid inferior wall in a pattern consistent with diaphragmatic attenuation. Unfortunately, the patient declined to lie prone, and so no prone images are available. The resting images show a similar perfusion pattern with slightly more prominent defect in the inferior wall but no areas of improvement. IMPRESSION: 1. Probable normal myocardial perfusion study. 2. Subtle, fixed proximal to mid inferior inferior perfusion defect that most likely reflects diaphragmatic attenuation artifact given the absence of any wall motion abnormality in this distribution. The patient was unable to lie prone to assess for this and a previous nontransmural infarction cannot be excluded but there is no compelling evidence for any significant myocardial ischemia. 3. High normal left ventricular systolic function without any focal wall motion abnormality and relatively small left ventricular volumes. 4. No angina or ECG evidence of ischemia with pharmacologic vasodilator stress. There were no arrhythmias. [place] - CAYDEN/cecilia/rudy doc#: [id number]/job#: [id number] dd: 11/11/2023 16:48:00 dt: 11/12/2023 02:07:00 DICTATING MD/COPIES TO: Immanuel Ledezma MD; Shawn Javier MD COPIES MNE: GENESIS;
== END ==
PROVIDERS: Family Provider Registered Nurse Diabetes Educator; PCP Registered Nurse Diabetes Educator; Referring Provider Internal Medicine Cardiovascular Disease; Visit Provider Internal Medicine Cardiovascular Disease
DX: E83.42 Hypomagnesemia (principal); I48.0 Paroxysmal atrial fibrillation; I47.29 Other ventricular tachycardia
CPT/HCPCS: 36415; 78452; 80048; 83735; 84443; 93017; A9502; J2785

== ENCOUNTER → 2024-04-22 10:48 | Outpatient (CLI) | payer MEDICARE, SELFPAY ==
[2024-04-22 12:34] LABS: Hematocrit 45.1 % (36-46); Hemoglobin 15.5 g/dL (12.0-16.0); Mean Corpuscular HGB Conc 34.3 % (30-36); Mean Corpuscular Hemoglobin 29.6 PG (26-34); Mean Corpuscular Volume 86.3 fL (80-100); Platelet Count 271 X10^3/uL (150-400); Red Blood Cell Count 5.22 X10^6/uL (4.0-5.2); Red Cell Distribution Width 13.5 % (11.6-14.8)
[2024-04-22 12:39] LABS: Hemoglobin A1C% w Est Avg Glu 8.5 % (4.0-6.0)
[2024-04-22 12:59] LABS: Alanine Aminotransferase 29 IU/L (<35); Albumin 4.3 g/dL (3.5-5.0); Albumin Globulin Ratio 1.4 (1.0-2.8); Alkaline Phosphatase 57 U/L (38-126); Aspartate Aminotransferase 28 IU/L (14-36); BUN Creatinine Ratio 20.7 (6-22); Bilirubin Total 0.8 mg/dL (0.2-1.3); Blood Urea Nitrogen 12 mg/dL (7-17); Calcium 9.9 mg/dL (8.4-10.2); Carbon Dioxide 28 mmol/L (22-32); Chloride 101 mmol/L (98-107); Cholesterol 225 mg/dL (140-199); Estimated Glomerular Filt Rate > 60 mL/min (>60); Globulin 3.1 g/dL (1.7-4.1); Glucose 214 mg/dL (80-110); HDL Cholesterol 58 mg/dL (40-60); HEMOLYSIS < 15 (0-50); LDL Cholesterol Calculated 119 mg/dL (<100); Potassium 4.3 mmol/L (3.4-5.1); Sodium 136 mmol/L (137-145); Total Protein 7.4 g/dL (6.3-8.2); Triglycerides 242 mg/dL (35-150)
== END ==
PROVIDERS: Family Provider Registered Nurse Diabetes Educator; PCP Registered Nurse Diabetes Educator; Referring Provider Registered Nurse Diabetes Educator; Visit Provider Registered Nurse Diabetes Educator
DX: E78.5 Hyperlipidemia, unspecified (principal); E11.9 Type 2 diabetes mellitus without complications; R80.9 Proteinuria, unspecified; I10 Essential (primary) hypertension
CPT/HCPCS: 36415; 80053; 80061; 83036; 84443; 85027

== ENCOUNTER → 2024-06-19 18:13 | Outpatient (CLI) | payer MEDICARE, SELFPAY | PROVIDERS: Family Provider Registered Nurse Diabetes Educator; PCP Registered Nurse Diabetes Educator; Visit Provider Nurse Practitioner Family | DX: R30.0 Dysuria (principal) | CPT/HCPCS: 87077; 87086; 87186 ==

== ENCOUNTER → 2024-11-20 14:37 | Outpatient (CLI) | payer MEDICARE, SELFPAY ==
[2024-11-20 15:37] LABS: Hemoglobin A1C% w Est Avg Glu 10.8 % (4.0-6.0)
[2024-11-22 15:49] LABS: Creatinine Urine Random 82.92 mg/dL
[2024-11-22 15:52] LABS: Microalbumin Urine Random 13.1 mg/dL (0-1.6)
== END ==
PROVIDERS: Family Provider Registered Nurse Diabetes Educator; PCP Registered Nurse Diabetes Educator; Referring Provider Registered Nurse Diabetes Educator; Visit Provider Registered Nurse Diabetes Educator
DX: E11.9 Type 2 diabetes mellitus without complications (principal); E78.5 Hyperlipidemia, unspecified; R80.9 Proteinuria, unspecified; I10 Essential (primary) hypertension
CPT/HCPCS: 82043; 82570; 83036

== ENCOUNTER → 2025-05-10 10:04 | Outpatient (CLI) | payer MEDICARE, SELFPAY ==
[2025-05-10 10:46] LABS: Hematocrit 42.7 % (36-46); Hemoglobin 14.4 g/dL (12.0-16.0); Mean Corpuscular HGB Conc 33.8 % (30-36); Mean Corpuscular Hemoglobin 28.7 PG (26-34); Mean Corpuscular Volume 84.8 fL (80-100); Platelet Count 252 X10^3/uL (150-400)
[2025-05-10 11:05] LABS: Hemoglobin A1C% w Est Avg Glu 7.8 % (4.0-6.0)
[2025-05-10 11:16] LABS: Alanine Aminotransferase 23 IU/L (<35); Albumin 4.4 g/dL (3.5-5.0); Albumin Globulin Ratio 1.4 (1.0-2.8); Alkaline Phosphatase 55 U/L (38-126); Blood Urea Nitrogen 17 mg/dL (7-17); Calcium 9.9 mg/dL (8.4-10.2); Carbon Dioxide 27 mmol/L (22-32); Chloride 98 mmol/L (98-107); Cholesterol 200 mg/dL (140-199); Estimated Glomerular Filt Rate > 60 mL/min (>60); Globulin 3.2 g/dL (1.7-4.1); Glucose 239 mg/dL (70-99); HDL Cholesterol 59 mg/dL (40-60); HEMOLYSIS < 15 (0-50); Potassium 4.4 mmol/L (3.4-5.1); Sodium 136 mmol/L (137-145); Total Protein 7.6 g/dL (6.3-8.2); Triglycerides 250 mg/dL (35-150)
[2025-05-10 11:47] LABS: TSH w/ Reflex to FT4 1.50 uIU/mL (0.47-4.68)
[2025-05-14 14:01] LABS: Magnesium 1.3 mg/dL (1.6-2.3)
== END ==
PROVIDERS: Family Provider Registered Nurse Diabetes Educator; PCP Registered Nurse Diabetes Educator; Referring Provider Registered Nurse Diabetes Educator; Visit Provider Registered Nurse Diabetes Educator
DX: E11.65 Type 2 diabetes mellitus with hyperglycemia (principal); R80.9 Proteinuria, unspecified; E78.5 Hyperlipidemia, unspecified; I10 Essential (primary) hypertension; E83.42 Hypomagnesemia
CPT/HCPCS: 36415; 80053; 80061; 83036; 83735; 84443; 85027

== ENCOUNTER → 2025-05-14 13:06 | Outpatient (CLI) | payer MEDICARE, SELFPAY ==
[2025-05-14 14:02] LABS: Microalbumi Creatinin Ratio Ur 112.0 ug/mg CR (<30)
== END ==
PROVIDERS: Family Provider Registered Nurse Diabetes Educator; PCP Registered Nurse Diabetes Educator; Referring Provider Registered Nurse Diabetes Educator; Visit Provider Registered Nurse Diabetes Educator
DX: E11.65 Type 2 diabetes mellitus with hyperglycemia (principal); R80.9 Proteinuria, unspecified; E78.5 Hyperlipidemia, unspecified; I10 Essential (primary) hypertension
CPT/HCPCS: 82043; 82570

== ENCOUNTER → 2025-06-19 14:19 | Outpatient (CLI) | payer MEDICARE, SELFPAY ==
--- NOTE | 2025-06-19 14:20 | DI.RAD.S_ITS ---
PROCEDURE: XR HIP W PEL IF DONE LT 2V INDICATIONS: pain to left hip/leg x 4 days TECHNIQUE: AP pelvis with lateral view(s) of the left hip(s). COMPARISON: None. FINDINGS: Bones: Radiolucency involving subcapital region of left femoral neck concerning for minimally displaced femoral neck fracture. Moderate bilateral hip joint osteoarthritic changes. No evidence of avascular necrosis of femoral head. Degenerative disc disease in visualized lower lumbar spine is seen. Soft tissues: The visualized bowel gas pattern is normal. No suspicious soft tissue calcifications. IMPRESSION: Finding is concerning for minimally displaced fracture involving subcapital region of left femoral neck. No other fracture or dislocation. No evidence of avascular necrosis of femoral heads. Moderate bilateral hip joint osteoarthritis. Dictated by: Ankur Abraham M.D. on 06/19/2025 at 15:45 Approved by: Ankur Abraham M.D. on 06/19/2025 at 15:46
== END ==
PROVIDERS: Family Provider Registered Nurse Diabetes Educator; PCP Registered Nurse Diabetes Educator; Referring Provider Physician Assistant; Visit Provider Physician Assistant
DX: M51.16 Intervertebral disc disorders with radiculopathy, lumbar region (principal); M16.0 Bilateral primary osteoarthritis of hip; M51.369 Other intervertebral disc degeneration, lumbar region without mention of lumbar back pain or lower extremity pain
CPT/HCPCS: 73502

== ENCOUNTER 2025-06-20 11:02 | Emergency (ER) | payer MEDICARE, SELFPAY ==
[2025-06-20 11:07] VITALS: BP 148/111; PULSE 90; RESP 16; TEMP 36.9; O2SAT 95; BMI 29.8
--- NOTE | 2025-06-20 11:12 | ED_ITS ---
HPI - Extremity Injury (Lower) General Chief Complaint: Extremity Injury, Lower Stated Complaint: hip px/ outpt xr with frac Time Seen by Provider: 06/20/25 11:05 History of Present Illness HPI Narrative: 80-year-old woman with a history of diabetes, hypertension, paroxysmal atrial fibrillation currently on apixaban was seen yesterday in urgent care with significant left buttock pain. X-ray was done and results available this morning indicate concern for minimally displaced fracture involving the subcapital region of the left femoral neck. Patient was called at home with instructions to return to the emergency department. She does need advanced imaging at this point. She has been able to hobble around at home last night with the use of a walker but describes her pain as significantly worse today and currently at 01/18. Related Data Home Medications ?Medication ?Instructions ?Recorded ?Confirmed cholecalciferol (vitamin D3) 125 5,000 unit PO DAILY 1 06/19/25 mcg (5,000 unit) capsule apixaban 5 mg tablet (Eliquis) 5 mg PO BID 07/17/21 mecobalamin (vitamin B12) 1,000 1,000 mcg sublingual D AILY 12/15/23 06/19/25 mcg disintegrating tablet,sublingual magnesium 250 mg tablet 500 mg PO DAILY 11/22/2404/05 Previous Rx's ?Medication ?Instructions ?Recorded blood sugar diagnostic (FreeStyle #100 ea 01/05/18 Test strips) blood-glucose sensor (Dexcom G7 #3 ea 11/22/24 Sensor device) blood-glucose,editor farm journal,cont #1 ea 11/22/24 (Dexcom G7 Staple Processing Machine Operator) diazepam 10 mg tablet (Valium) 10 mg PO DAILY PRN flyi ng #10 tabs 05/14/25 diltiazem HCl 120 mg 120 mg PO BID #180 caps 10/03 capsule,extended release 24 hr metformin 500 mg tablet,extended See Rx Instructions P O .COMPLEX 05/14/25 release 24 hr #270 tabs metoprolol succinate 50 mg 75 mg (1.5 x 50 mg) PO BID #270 05/14/25 tablet,extended release 24 hr tabs sitagliptin phosphate 100 mg 100 mg PO DAILY #100 tabs 05/14/25 tablet (Januvia) tramadol 50 mg tablet 50 mg PO Q8H PRN pain #21 ta bs 06/19/25 oxycodone-acetaminophen 5 mg-325 1 tab PO Q6H PRN pain #10 tabs 06/20/25 mg tablet Allergies Allergy/AdvReac Type Severity Reaction Status Date / Time fluticasone (From Flonase) Allergy Severe lip/mouth Verified 06/19/25 13:59 swelling from generic Influenza Virus Vaccines Allergy Intermediate Arm Verified 06/19/25 13:59 swelling, admitted to [facility] for few days gabapentin AdvReac Severe suicidial Verified 06/19/25 13:59 thoughts/depressed mential state simvastatin AdvReac Intermediate Severe Verified 06/19/25 13:59 muscle weekness and pain Review of Systems Review of Systems Narrative: Pertinent positive and negative findings as per HPI Patient History Medical History Type 2 diabetes mellitus with hyperglycemia, without long-term current use of insulin Diabetes type 2, uncontrolled Paroxysmal atrial fibrillation Anxiety with flying History of DVT (deep vein thrombosis) Allergic rhinitis Microalbuminuria Dyslipidemia Diabetes type 2, controlled Left-sided tinnitus (Unknown) SVT (supraventricular tachycardia) (2013) Diabetes (Unknown) Allergic rhinitis (Unknown) Hyperlipemia (Unknown) Hypertension (Unknown) Surgical History Cataract extraction status of left eye Hx of hysterectomy (Unknown) History of carpal tunnel release (05/2013) Hx of tonsillectomy (Unknown) Family History Father No problems noted. Mother No problems noted. Social History household members: none Tobacco: How many years used: 30 alcohol intake: never alcohol intake frequency: holidays/special occasions only Exam Initial Vital Signs Initial Vital Signs: Vital Signs Temperature 98.5 F 06/20/25 11:07 Pulse Rate 90 06/20/25 11:07 Respiratory Rate 16 06/20/25 11:07 Blood Pressure 148/111 H 06/20/25 11:07 Pulse Oximetry 95 06/20/25 11:07 Oxygen Delivery Method Room Air 06/20/25 11:07 General: Alert appropriate in no acute distress Respiratory: Able to speak in full sentences, no obvious respiratory distress Skin: No obvious rashes, warm and dry Pelvis: Tenderness over the left external hip with tenderness with external rotation, no significant bruising. Neurovascularly intact distally Neurologic: Grossly intact no obvious asymmetries or abnormalities Psych: appropriate insight and affect, cooperative Course Orders Ordered: ED Orders 06/20/25 11:14 Ct Hip left without con Stat Discontinued Medications Ondansetron HCl (Ondansetron 4 Mg Odt) 4 mg SL NOW ONE Stop: 06/20/25 12:51 Last Admin: 06/20/25 12:54 Dose: 4 mg Documented By: MALCOLM Oxycodone/Acetaminophen (Oxycodone/Acetaminophen 5/325 Tablet) 1 tab PO NOW ONE Stop: 06/20/25 11:15 Last Admin: 06/20/25 11:53 Dose: 1 tab Documented By: MALVIN Vital Signs Vital signs: Vital Signs - 8 hr 06/20/25 11:07 06/20/25 13:05 06/20/25 16:50 Temperature 98.5 F 98.2 F Pulse Rate 90 80 81 Respiratory Rate 16 20 Blood Pressure 148/111 H 162/79 H 151/73 H Pulse Oximetry 95 92 92 Oxygen Delivery Method Room Air Room Air Room Air MDM - Extremity Injury (Lower) Imaging Data X-ray hip: Radiologist's Impression: Study from June 19 IMPRESSION: Finding is concerning for minimally displaced fracture involving subcapital region of left femoral neck. No other fracture or dislocation. No evidence of avascular necrosis of femoral heads. Moderate bilateral hip joint osteoarthritis. Dictated by: Ankur Abraham M.D. on 06/19/2025 at 15:45 ECG Data Interpretation: [place] [address] CT Scan Report Signed Patient: Rica Fabian MR#: [id number] : 1945 Acct:[id number] Age/Sex: 80 / F Date of Service: 06/20/25 Loc: ED Accession Number: [id number] Procedure: Ct Hip left without con Ordering Provider: Marlys Campos MD PROCEDURE: CT HIP LEFT WITHOUT CON INDICATIONS: left hip pain TECHNIQUE: Noncontrast 3 mm axial sections acquired through the bony pelvis. Additional 3 mm axial sections acquired through the symptomatic hip joint, with coronal and sagittal reformats. COMPARISON: None. FINDINGS: Image quality: Excellent. Bones: No pelvic fracture or hip fracture noted. Mild left hip degenerative arthritis. No lytic or blastic bony lesions. Soft tissues: No significant sequelae of acute trauma. Uterus is surgically absent. Cystocele. Diverticulosis. IMPRESSION: 1. No acute bony abnormality. 2. Mild left hip degenerative change. Dictated by: Mathew Mixon M.D. on 06/20/2025 at 12:32 MDM Narrative Medical decision making narrative: 80-year-old woman who fell a little over a week ago was seen in urgent care yesterday complaining of left hip pain. X-ray was done near the end of the day and results this morning suggested a possible hip fracture. I spoke with the PA who contact with the patient and recommended that she go to the emergency department for further evaluation including a CT scan. On arrival she complains of pain and was given 1 Percocet which she found helped tremendously with pain overall. CT scan of the hip showed no fractures and mild left hip degenerative change Findings were reviewed with the patient. She would much prefer discharge home rather than admission for pain control or physical therapy. She did find that the oxycodone was helpful and will be given prepack to go home with and a brief prescription. She is aware of the side effects including addiction and const ipation. She is on apixaban so nonsteroidals are not going to be appropriate for her. She is able to be mobile at home and does have a walker available. She is safely discharge Discharge Plan Departure Patient Disposition: Home Clinical Impression: Contusion of hip, left Instructions: DI for Hip Pain Activity Restrictions/Additional Instructions: Thank you for coming into the emergency department. I am sorry that you had 2 experience a day were are volumes were completely overwhelming and we were not able to provide the experienced that we would prefer to be able to provide. Your x-ray done at urgent care yesterday suggested that you could possibly have a fracture in the left hip. I reviewed that with the physician's lead assistant manager this morning and suggested that you return to the emergency department, thank you for following instructions. Your CT scan today was actually quite reassuring. There is no fracture. You clearly have a significant contusion to the bone which is causing your pain. You were given oxycodone in the emergency department and found that it was quite effective in relieving pain. I have given you a couple of tablets to use today and a prescription was electronically transmitted to [facility]. You can use a full tablet at night to help with sleep. It is okay to use another full tablet in the morning but if you prefer half a tablet or even simply Tylenol alone that is okay Narcotics will cause constipation. I would recommend that you shredder picker a container of MiraLax and suggest a cap full any day that you end up using narcotics. If you find that you are getting worse or develop any new symptoms, please feel free to return to the emergency department for further evaluation. Prescriptions: New oxycodone-acetaminophen 5-325 mg tablet 1 tab PO Q6H PRN (Reason: pain) Qty: 10 0RF No Action (DME) blood sugar diagnostic [FreeStyle Test] strip See Dose Instructions .ROUTE .MEDSUPPLY Qty: 100 0RF Dose Instruction: As directed Rx Instructions: Use to test blood sugars once daily. cholecalciferol (vitamin D3) 5,000 unit capsule 5,000 unit PO DAILY Eliquis 5 mg tablet 5 mg PO BID mecobalamin (vitamin B12) 1,000 mcg tablet,disintegrating 1,000 mcg sublingual DAILY Rx Instructions: place tablet under tongue and allow to dissolve for at least30 secs before swallowing (DME) Dexcom G7 Sensor Device See Rx Instructions .ROUTE .MEDSUPPLY Qty: 3 3RF Rx Instructions: Test blood sugars continuously / replace every 10 days (DME) Dexcom G7 Staple Processing Machine Operator Misc See Rx Instructions .ROUTE .MEDSUPPLY Qty: 1 0RF Rx Instructions: test blood sugars continuously. Good for 1 year or sooner if damaged tramadol 50 mg tablet 50 mg PO Q8H PRN (Reason: pain) Qty: 21 0RF diltiazem HCl 120 mg capsule,extended release 24hr 120 mg PO BID Qty: 180 3RF metoprolol succinate 50 mg tablet extended release 24 hr 75 mg PO BID Qty: 270 3RF metformin 500 mg tablet extended release 24 hr See Rx Instructions PO .COMPLEX Qty: 270 3RF Rx Instructions: Take 1 tab by mouth every morning and 2 tabs every evening Januvia 100 mg tablet 100 mg PO DAILY Qty: 100 3RF diazepam [Valium] 10 mg tablet 10 mg PO DAILY PRN (Reason: flying ) Qty: 10 0RF Patient Comments: Takes only when she flies Rx Instructions: Take 1 hour prior to flight magnesium 250 mg tablet 500 mg PO DAILY Referrals: Leeroy Oropeza ARNP [Primary Care Provider, Medical] Stand Alone Forms: Patient Portal/API
[2025-06-20] MEDS: ONDANSETRON 4 MG ODT SL (12:54)
[2025-06-20 13:05] VITALS: BP 162/79; PULSE 80; RESP 20; TEMP 36.8; O2SAT 92
[2025-06-20 16:50] VITALS: BP 151/73; PULSE 81; O2SAT 92
== END 2025-06-20 19:00 | disposition home or self-care (01) ==
PROVIDERS: Emergency Provider Emergency Medicine; Family Provider Registered Nurse Diabetes Educator; PCP Registered Nurse Diabetes Educator
DX: S70.02XA Contusion of left hip, initial encounter (principal); W19.XXXA Unspecified fall, initial encounter
CPT/HCPCS: 73700; 99283; 99284

== ENCOUNTER 2025-06-23 09:08 | Emergency (ER) | payer MEDICARE, SELFPAY ==
[2025-06-23] VITALS (13 sets, daily range): BP systolic 137–179; BP diastolic 64–88; PULSE 70–91; RESP 16–27; TEMP 36.7; O2SAT 89–97; BMI 29.8
--- NOTE | 2025-06-23 09:15 | ED.BACK ---
HPI - Back Pain/Injury General Chief Complaint: Urogenital-Female Stated Complaint: Hip Pain Time Seen by Provider: 06/23/25 09:14 History of Present Illness HPI Narrative: Patient is an 80-year-old female history of paroxysmal atrial fibrillation on Eliquis diabetes presenting today with ongoing left back and hip pain but now having incontinence. She was seen evaluated here 06/20/2025 there was an x-ray which was concerning for minimally displaced fracture involving subcapital region of the left femoral neck. However patient had a CT ultimately decided she does not have a fracture. She was treated for a left hip contusion with pain control. She reports that she now has some numbness tingling down that left leg she has got pain in her buttock. She denies any kind of fall or traumatic injury. In the last 1-2 hours she has had 2 episodes of urinary incontinence where she suddenly wets herself. She has no saddle anesthesia no fever no chills or any other symptoms. Related Data Home Medications ?Medication ?Instructions ?Recorded ?Confirmed cholecalciferol (vitamin D3) 125 5,000 unit PO DAILY 05/06/18 06/19/25 mcg (5,000 unit) capsule apixaban 5 mg tablet (Eliquis) 5 mg PO BID 07/17/21 06/19/25 mecobalamin (vitamin B12) 1,000 1,000 mcg sublingual DAILY 12/15/23 06/19/25 mcg disintegrating tablet,sublingual magnesium 250 mg tablet 500 mg PO DAILY 11/22/24 06/19/25 Previous Rx's ?Medication ?Instructions ?Recorded blood sugar diagnostic (FreeStyle #100 ea 01/05/18 Test strips) blood-glucose sensor (Dexcom G7 #3 ea 11/22/24 Sensor device) blood-glucose,rural route carrier,cont #1 ea 11/22/24 (Dexcom G7 Shipfitter Helper) diazepam 10 mg tablet (Valium) 10 mg PO DAILY PRN flying #10 tabs 05/14/25 diltiazem HCl 120 mg 120 mg PO BID #180 caps 05/14/25 capsule,extended release 24 hr metformin 500 mg tablet,extended See Rx Instructions PO .COMPLEX 05/14/25 release 24 hr #270 tabs metoprolol succinate 50 mg 75 mg (1.5 x 50 mg) PO BID #270 05/14/25 tablet,extended release 24 hr tabs sitagliptin phosphate 100 mg 100 mg PO DAILY #100 tabs 05/14/25 tablet (Januvia) tramadol 50 mg tablet 50 mg PO Q8H PRN pain #21 tabs 06/19/25 oxycodone-acetaminophen 5 mg-325 1 tab PO Q6H PRN pain #10 tabs 12/10/25 mg tablet oxycodone-acetaminophen 5 mg-325 1 tab PO Q6H PRN pain #10 tabs 12/13/25 mg tablet (Percocet) Allergies Allergy/AdvReac Type Severity Reaction Status Date / Time fluticasone (From Flonase) Allergy Severe lip/mouth Verified 06/19/25 13:59 swelling from generic Influenza Virus Vaccines Allergy Intermediate Arm Verified 06/19/25 13:59 swelling, admitted to [facility] for few days gabapentin AdvReac Severe suicidial Verified 06/19/25 13:59 thoughts/depressed mential state simvastatin AdvReac Intermediate Severe Verified 06/19/25 13:59 muscle weekness and pain Patient History Medical History Type 2 diabetes mellitus with hyperglycemia, without long-term current use of insulin Diabetes type 2, uncontrolled Paroxysmal atrial fibrillation Anxiety with flying History of DVT (deep vein thrombosis) Allergic rhinitis Microalbuminuria Dyslipidemia Diabetes type 2, controlled Left-sided tinnitus (Unknown) SVT (supraventricular tachycardia) (2013) Diabetes (Unknown) Allergic rhinitis (Unknown) Hyperlipemia (Unknown) Hypertension (Unknown) Surgical History Cataract extraction status of left eye Hx of hysterectomy (Unknown) History of carpal tunnel release (05/2013) Hx of tonsillectomy (Unknown) Family History Father No problems noted. Mother No problems noted. Social History household members: none Smoking Status: Never smoker Tobacco: How many years used: 30 alcohol intake: never alcohol intake frequency: holidays/special occasions only Exam Initial Vital Signs Initial Vital Signs: Vital Signs Pulse Rate 90 06/23/25 09:19 Pulse Oximetry 97 06/23/25 09:19 GENERAL: Alert very pleasant well-appearing 80-year-old female and in no acute distress. HEENT: Head atraumatic,EOMI, pupils reactive, face symmetric, moist mucous membranes CARDIOVASCULAR: Regular rate and rhythm without murmurs, rubs or gallops. RESPIRATORY: Breath sounds equal bilaterally, no wheezes rales or rhonchi. ABDOMEN: Soft, nontender. Normoactive bowel sounds all 4 quadrants. No guarding or rebound. BACK: No vertebral tenderness no step-offs she is tender in left lower lumbar area pain is reproducible in her left buttock EXTREMITIES: Normal range of motion, no clubbing or edema. Neurovascularly intact NEUROLOGICAL: Alert and oriented x4.Normal gait and speech. Cranial nerves II through XII grossly intact. She is able to lift both legs. Sensation in saddle region is equal and intact SKIN: Warm, dry, no laceration, no petechiae, no rashes or lesions. Course Orders Ordered: ED Orders 06/23/25 09:15 CBC Auto Diff [Complete Blood Count AUTO DIFF] Stat CMP [Comprehensive Metabolic Panel] Stat CRP [C-Reactive Protein Quant] Stat ESR [Erythrocyte Sedimentation Rate] Stat 06/23/25 09:16 MR lumbar spine wo/w con Stat 06/23/25 11:29 UA Complete [Urinalysis and Microscopic] Stat Discontinued Medications Lorazepam (Lorazepam 2 Mg/Ml Inj) 0.5 mg IV NOW ONE Stop: 06/23/25 09:19 Last Admin: 06/23/25 09:37 Dose: 0.5 mg Documented By: PRITI Lorazepam (Lorazepam 2 Mg/Ml Inj) 0.25 mg IV NOW ONE Stop: 06/23/25 12:10 Last Admin: 06/23/25 12:14 Dose: 0.25 mg Documented By: ROCKY Lorazepam (Lorazepam 0.5 Mg Tablet) 0.25 mg PO NOW ONE Stop: 06/23/25 12:45 Last Admin: 06/23/25 12:46 Dose: Not Given Documented By: PRITI Lorazepam (Lorazepam 2 Mg/Ml Inj) 0.25 mg IV NOW ONE Stop: 06/23/25 12:46 Last Admin: 06/23/25 12:48 Dose: 0.25 mg Documented By: PRITI Lorazepam (Lorazepam 2 Mg/Ml Inj) 0.25 mg IV NOW ONE Stop: 06/23/25 13:17 Last Admin: 06/23/25 13:19 Dose: 0.25 mg Documented By: PRITI Oxycodone/Acetaminophen (Oxycodone/Acetaminophen 5/325 Tablet) 1 tab PO NOW ONE Stop: 06/23/25 09:29 Last Admin: 06/23/25 09:37 Dose: 1 tab Documented By: PRITI Vital Signs Vital signs: Vital Signs - 8 hr 06/23/25 10:30 06/23/25 10:30 06/23/25 11:00 Pulse Rate 74 71 Respiratory Rate 17 16 Blood Pressure 137/64 Pulse Oximetry 92 94 Oxygen Delivery Method Oxygen Flow Rate 06/23/25 11:00 06/23/25 11:30 06/23/25 11:31 Pulse Rate 70 74 Respiratory Rate 23 Blood Pressure 143/64 H Pulse Oximetry 97 97 Oxygen Delivery Method Oxygen Flow Rate 06/23/25 11:31 06/23/25 12:00 06/23/25 12:00 Pulse Rate 75 Respiratory Rate 20 Blood Pressure 166/74 H 163/74 H Pulse Oximetry 97 Oxygen Delivery Method Nasal Cannula Oxygen Flow Rate 1 06/23/25 13:43 06/23/25 14:00 06/23/25 14:00 Pulse Rate 82 74 Respiratory Rate 18 Blood Pressure 145/67 H Pulse Oximetry 93 97 Oxygen Delivery Method Oxygen Flow Rate 06/23/25 14:30 06/23/25 14:31 06/23/25 14:31 Pulse Rate 76 77 Respiratory Rate 25 H 27 H Blood Pressure 157/76 H Pulse Oximetry 96 96 Oxygen Delivery Method Oxygen Flow Rate MDM - Back Pain/Injury Lab Data 06/23/25 09:15 06/23/25 09:15 Labs: Lab Results 06/23/25 06/23/25 Range/Units 09:15 11:29 WBC 8.9 (4.5-11.0) X10^3/uL RBC 5.36 H (4.0-5.2) X10^6/uL Hgb 15.6 (12.0-16.0) g/dL Hct 45.1 (36-46) % MCV 84.2 (80-100) fL MCH 29.0 (26-34) PG MCHC 34.5 (30-36) % RDW 14.0 (11.6-14.8) % Plt Count 273 (150-400) X10^3/uL Neut % (Auto) 43.6 L (50-75) % Lymph % (Auto) 46.5 H (25-40) % Shannon % (Auto) 6.6 (3-14) % Eos % (Auto) 2.4 (2-4) % Baso % (Auto) 0.9 (0-2) % Neut # (Auto) 3900 (2948-1056) /uL Lymph # (Auto) 4200 (7423-4708) /uL Shannon # (Auto) 600 (0-900) /uL Eos # (Auto) 200 (0-450) /uL Baso # (Auto) 100 (0-100) /uL ESR 4 (0-20) MM/HR Sodium 138 (137-145) mmol/L Potassium 4.3 (3.4-5.1) mmol/L Chloride 99 (98-107) mmol/L Carbon Dioxide 27 (22-32) mmol/L BUN 15 (7-17) mg/dL Creatinine 0.65 (0.52-1.04) mg/dL Estimated GFR > 60 (>60) mL/min BUN/Creatinine Ratio 23.1 H (6-22) Glucose 203 H (70-99) mg/dL Calcium 10.1 (8.4-10.2) mg/dL Total Bilirubin 0.6 (0.2-1.3) mg/dL AST 35 (14-36) IU/L ALT 34 (<35) IU/L Alkaline Phosphatase 53 (38-126) U/L C-Reactive Protein < 0.5 (<1.0) mg/dL Total Protein 8.3 H (6.3-8.2) g/dL Albumin 4.7 (3.5-5.0) g/dL Globulin 3.6 (1.7-4.1) g/dL Albumin/Globulin Ratio 1.3 (1.0-2.8) Urine Color Yellow Urine Appearance Clear Urine pH 5.5 (4.5-8.0) Ur Specific [place] 1.010 (1.000-1.035) Urine Protein Trace H (Negative) Urine Glucose (UA) Negative (Negative) g/dL Urine Ketones Negative (NEGATIVE) Urine Occult Blood Negative (Negative) Urine Nitrate Negative (Negative) Urine Bilirubin Negative (NEGATIVE) Urine Urobilinogen 0.2 (0.2) E.U./dL Ur Leukocyte Esterase Negative (NEGATIVE) Urine RBC None seen (0-5/HPF) Urine WBC 0-1/hpf (0-5/HPF) Ur Squamous Epith Cells 1-5 /hpf (0-5/HPF) Urine Bacteria None seen (None) Ur Culture Indicated? Cult not indicated Vol Urine Centrifuged 10ml (spun) Imaging Data MR Lumbar: Radiologist's Impression: PROCEDURE: MR LUMBAR SPINE WO/W CON INDICATIONS: left leg/hip pain with incontinence TECHNIQUE: Noncontrast sagittal T1 spin echo and T2 fast spin echo, sagittal STIR, axial T1 and T2 fast spin echo through the lumbar spine. In cases with scoliosis, additional coronal T2 fast spin echo may be performed. After the administration of contrast, sagittal and axial T1 spin echo with fat saturation through the lumbar spine. COMPARISON: None. FINDINGS: Image quality: Excellent. Alignment and curvature: Mild reversed S-shaped inferior thoracic to lumbar scoliosis. Marrow: T12 spinal hemangioma is mildly atypical in appearance with extension into the bilateral, right greater than left, pedicles. There is increased prominence of Yasmani's plexus at this level. No acute vertebral body compression fractures. No pathologic fracture. Spinal cord: Conus medullaris terminates at the L1 level. Visualized spinal cord demonstrates normal signal, without suspicious enhancement. Paraspinous soft tissues: No paravertebral masses or abnormal enhancement. T12-L1: Degenerated disc with mild height loss and diffuse disc bulge. Mild bilateral neural foraminal stenosis due to facet arthrosis. No spinal canal stenosis. L1-L2: Moderate right lateral recess stenosis due to scoliotic curvature, right central to subarticular osteophytosis, and facet arthrosis, and ligamentum flavum thickening. Right moderate neural foraminal stenosis due to scoliotic curvature, subarticular osteophytosis, and facet arthrosis. No left neural foraminal stenosis. L2-L3: Mild spinal canal stenosis due to a diffusely bulging disc, ligamentum flavum thickening, facet arthrosis. Mild bilateral neural foraminal stenosis due to subarticular disc bulge, scoliotic curvature, and facet arthrosis. L3-L4: Mild to moderate spinal canal and mild bilateral lateral recess stenosis due to diffusely bulging disc, ligamentum flavum thickening, and facet arthrosis. Left moderate and right mild neural foraminal stenosis due to scoliotic curvature, subarticular disc bulge and facet arthrosis. L4-L5: Mild bilateral lateral recess stenosis due to degenerated, diffusely bulging disc, ligamentum flavum thickening, and facet arthrosis. Moderate bilateral neural foraminal stenosis due to facet arthrosis and subarticular disc bulge. L5-S1: No significant spinal canal stenosis. Bilateral mild left worse than right, moderate neural foraminal stenosis due to facet arthrosis. IMPRESSION: 1. No findings of cauda equina syndrome or focal enhancement of the nerve roots to correlate for reported incontinence. 2. Atypical spinal hemangioma in T12 involves the vertebral body and bilateral, right greater than left, pedicles without extraosseous extension or pathologic fracture. Recommend outpatient referral to orthopedic or nurse surgical spine surgery for further evaluation. 3. Multilevel spinal canal stenosis reaches [id number] at L3-4. 4. Multilevel lateral recess stenosis reaches moderate at L1-2 on the right and mild bilaterally at L3-4 and L4-5. 5. Multilevel neural foraminal stenosis, which reaches moderate on the right at L1-2 left at L3-4, bilaterally at L4-5 and bilaterally at L5-S1. Dictated by: Ricardo Fairchild M.D. on 06/23/2025 at 12:49 MDM Narrative Medical decision making narrative: Patient 80-year-old female presenting today with urinary incontinence. She has had some ongoing left hip issues. It now sounds like she actually has sciatica with pain in her left buttock and radiation down her left leg. However she has had 2 episodes of urinary incontinence. She is afebrile without back pain. Differential diagnosis: Cauda equina epidural abscess epidural hematoma, UTI Blood work has been reviewed CBC no leukocytosis no anemia CMP within normal limits glucose 203 no evidence of DKA ESR 4 CRP less than 5 Urinalysis negative for UTI Imaging has been reviewed MRI lumbar spine she has no evidence of cauda equina. It does show multilevel Patient required multiple doses of Ativan for her MRI with her severe claustrophobia. Overall it does appear that she has some spinal canal stenosis. Her symptoms are most consistent with a sciatica. Ruled out for epidural abscess epidural hematoma cauda equina and other causes of ongoing left hip pain. At this time supportive care only. Patient did ask for more pain medication she was previously prescribed oxycodone and given an oxycodone here in the ED. Discharge Plan Departure Patient Disposition: Home Clinical Impression: Sciatica Instructions: DI for Sciatica Activity Restrictions/Additional Instructions: *You have been diagnosed with sciatica *What to do: At this time blood work is overall reassuring. MRI shows that you have some canal narrowing which is likely some arthritis and causing some nerve impingement onto your left leg. *Continue to take medications as directed Continue pain medications as previously prescribed *Follow up with your primary care provider in 2-3 days or call [phone] *Return to ER if you should have increasing leg weakness, ongoing urinary incontinence or any new, worsening or concerning symptoms Prescriptions: New oxycodone-acetaminophen [Percocet] 5-325 mg tablet 1 tab PO Q6H PRN (Reason: pain) Qty: 10 0RF No Action (DME) blood sugar diagnostic [FreeStyle Test] strip See Dose Instructions .ROUTE .MEDSUPPLY Qty: 100 0RF Dose Instruction: As directed Rx Instructions: Use to test blood sugars once daily. cholecalciferol (vitamin D3) 5,000 unit capsule 5,000 unit PO DAILY Eliquis 5 mg tablet 5 mg PO BID mecobalamin (vitamin B12) 1,000 mcg tablet,disintegrating 1,000 mcg sublingual DAILY Rx Instructions: place tablet under tongue and allow to dissolve for at least30 secs before swallowing (DME) Dexcom G7 Sensor Device See Rx Instructions .ROUTE .MEDSUPPLY Qty: 3 3RF Rx Instructions: Test blood sugars continuously / replace every 10 days (DME) Dexcom G7 Shipfitter Helper Misc See Rx Instructions .ROUTE .MEDSUPPLY Qty: 1 0RF Rx Instructions: test blood sugars continuously. Good for 1 year or sooner if damaged tramadol 50 mg tablet 50 mg PO Q8H PRN (Reason: pain) Qty: 21 0RF diltiazem HCl 120 mg capsule,extended release 24hr 120 mg PO BID Qty: 180 3RF metoprolol succinate 50 mg tablet extended release 24 hr 75 mg PO BID Qty: 270 3RF metformin 500 mg tablet extended release 24 hr See Rx Instructions PO .COMPLEX Qty: 270 3RF Rx Instructions: Take 1 tab by mouth every morning and 2 tabs every evening Januvia 100 mg tablet 100 mg PO DAILY Qty: 100 3RF diazepam [Valium] 10 mg tablet 10 mg PO DAILY PRN (Reason: flying ) Qty: 10 0RF Patient Comments: Takes only when she flies Rx Instructions: Take 1 hour prior to flight magnesium 250 mg tablet 500 mg PO DAILY oxycodone-acetaminophen 5-325 mg tablet 1 tab PO Q6H PRN (Reason: pain) Qty: 10 0RF Referrals: Leeroy Oropeza ARNP [Primary Care Provider, Medical] Stand Alone Forms: Patient Portal/API
[2025-06-23 09:28] LABS: Add Manual Diff / Slide Review NO; Hematocrit 45.1 % (36-46); Hemoglobin 15.6 g/dL (12.0-16.0); Lymphocytes Absolute Auto 4200 /uL (1100-4500); Mean Corpuscular HGB Conc 34.5 % (30-36); Mean Corpuscular Hemoglobin 29.0 PG (26-34); Mean Corpuscular Volume 84.2 fL (80-100); Platelet Count 273 X10^3/uL (150-400)
[2025-06-23 09:49] LABS: Alanine Aminotransferase 34 IU/L (<35); Albumin 4.7 g/dL (3.5-5.0); Albumin Globulin Ratio 1.3 (1.0-2.8); Alkaline Phosphatase 53 U/L (38-126); Blood Urea Nitrogen 15 mg/dL (7-17); Calcium 10.1 mg/dL (8.4-10.2); Carbon Dioxide 27 mmol/L (22-32); Chloride 99 mmol/L (98-107); Estimated Glomerular Filt Rate > 60 mL/min (>60); Globulin 3.6 g/dL (1.7-4.1); Glucose 203 mg/dL (70-99); HEMOLYSIS 21 (0-50); Potassium 4.3 mmol/L (3.4-5.1); Sodium 138 mmol/L (137-145); Total Protein 8.3 g/dL (6.3-8.2)
[2025-06-23 11:40] LABS: Appearance Urine UA CLEAR; Bilirubin Urine UA NEGATIVE (NEGATIVE); Color Urine UA YELLOW; Glucose Urine UA NEGATIVE (Negative); Ketones Urine UA NEGATIVE (NEGATIVE); Leukocyte Esterase Urine UA NEGATIVE (NEGATIVE); Nitrite Urine UA NEGATIVE (Negative); Occult Blood Urine UA NEGATIVE (Negative); Protein Urine UA TRACE (Negative); Specific Gravity Urine UA 1.010 (1.000-1.035); Urobilinogen Urine UA 0.2 E.U./dL (0.2)
[2025-06-23 11:48] LABS: pH Urine UA 5.5 (4.5-8.0)
[2025-06-23 11:56] LABS: Culture Indicated Urine Cult Not Indicated
--- NOTE | 2025-06-23 13:07 | PC.NURSE ---
patient needed additional medication for the MRI
--- NOTE | 2025-06-23 13:47 | PC.NURSE ---
pt back from MRI. Pt was able to tolerate MRI after being premedicated
--- NOTE | 2025-06-23 14:11 | PC.NURSE ---
kaylyn, the ostomy nurse is here and redressed his wound
== END 2025-06-23 15:40 | disposition home or self-care (01) ==
PROVIDERS: Emergency Provider Emergency Medicine; Family Provider Registered Nurse Diabetes Educator; PCP Registered Nurse Diabetes Educator
DX: M54.32 Sciatica, left side (principal); M25.552 Pain in left hip; R20.2 Paresthesia of skin; N39.498 Other specified urinary incontinence
CPT/HCPCS: 36415; 72158; 80053; 81001; 85025; 85651; 86140; 96374; 96376; 99284; A9579; J2060